=== PATIENT | male | born 1950 ===

== ENCOUNTER 2018-02-18 16:46 | Inpatient (IN) | payer MEDICAID ==
[2018-02-18 17:53] LABS: BASO # 0.1 K/uL (0.0-0.2); BASO % 1.1 % (0.0-2.0); EOS # 0.2 K/uL (0.0-0.7); EOS % 3.4 % (0.0-4.0); LYMPH # 2.5 K/uL (1.0-4.3); LYMPH % 47.7 % (20.0-40.0); MEAN CELL VOLUME 90.4 fl (80.0-94.0); MEAN CORPUSCULAR HGB CONC 33.2 g/dL (33.0-37.0); MEAN PLATELET VOLUME 7.4 fl (7.2-11.7); MONO # 0.4 K/uL (0.0-0.8); MONO % 7.2 % (0.0-10.0); NEUT # 2.1 K/uL (1.8-7.0); NEUT % 40.6 % (50.0-75.0); NRBC % 0.2 % (0.0-0.0); RBC 4.34 Mil/uL (4.40-5.90); RED CELL DISTRIBUTION WIDTH 14.3 % (11.5-14.5); WHITE BLOOD COUNT 5.2 K/uL (4.8-10.8)
--- NOTE | 2018-02-18 17:54 | ED PDOC ---
HPI: Psych/Substance Abuse Time Seen by Provider: 02/18/18 16:57 Chief Complaint (Nursing): Psychiatric Evaluation Chief Complaint (Provider): Psychiatric Evaluation History Per: Patient, EMS, Other (Triage) History/Exam Limitations: no limitations Onset/Duration Of Symptoms: Hrs Current Symptoms Are (Timing): Gone Now Suicide/Self Injury Attempted (Context): None Modifying Factor(s): None Additional Complaint(s): 68 y/o male with a PMHx of HTN brought to the ED via EMS for evaluation of agitation. According to triage and EMS, patient was agitated at the alf and had an argument with the staff. No alf notes are available for viewing. Patient reports he does not like his alf. Denies suicidal ideation, homicidal ideation and hallucinations. Patient currently offers no complaints at this time. PMD: Unknown Past Medical History Reviewed: Historical Data, Nursing Documentation, Vital Signs Vital Signs: Last Vital Signs Temp 98 F 02/18/18 16:48 Pulse 98 H 02/18/18 16:48 Resp 18 02/18/18 16:48 BP 142/88 02/18/18 16:48 Pulse Ox 99 02/18/18 16:48 - Medical History PMH: Bipolar Disorder, Depression, Diabetes, HTN, Schizophrenia - Family History Family History: States: Unknown Family Hx - Living Arrangements Living Arrangements: [facility] - Social History Current smoker - smoking cessation education provided: No Alcohol: None - Immunization History Hx Tetanus Toxoid Vaccination: No Hx Influenza Vaccination: Yes Hx Pneumococcal Vaccination: Yes - Home Medications Home Medications: Ambulatory Orders Medication Instructions Recorded Olanzapine 5 mg PO DAILY 10/26/16 Acetaminophen [Tylenol 325mg tab] 650 mg PO Q4 PRN tab 11/08/16 Benztropine [Cogentin] 2 mg PO DAILY tab 11/08/16 Dexamethasone [Decadron] 4 mg PO Q6 tab 11/08/16 Ergocalciferol [Drisdol 50,000 1 cap PO QWK cap 11/08/16 Intl Units Cap] FLUoxetine [Prozac] 20 mg PO DAILY cap 11/08/16 Famotidine [Pepcid] 20 mg PO BID tab 11/08/16 Insulin Aspart, Recombinant 0 unit SC ACHS unit 11/08/16 [Novolog] Lactulose [Enulose] 20 gm PO HS 11/08/16 Magnesium Hydroxide [Milk Of 30 ml PO DAILY 11/08/16 Magnesia] Multivitamins [Hexavitamin] 1 tab PO DAILY tab 11/08/16 Pantoprazole [Protonix EC Tab] 40 mg PO DAILY ect 11/08/16 Polyethylene Glycol 3350 [Miralax] 17 gm PO DAILY packet 11/08/16 Thiamine [Vitamin B1 Tab] 100 mg PO DAILY tab 11/08/16 Tolterodine [Detrol LA] 2 mg PO DAILY cer 11/08/16 amLODIPine [Norvasc] 10 mg PO DAILY tab 11/08/16 metFORMIN [glucOPHAGE] 500 mg PO BIDCC tab 11/08/16 - Allergies Allergies/Adverse Reactions: Allergies Allergy/AdvReac Type Severity Reaction Status Date / Time olive oil Allergy Mild Verified 10/26/16 21:22 Review of Systems ROS Statement: Except As Marked, All Systems Reviewed And Found Negative Psych: Positive for: Other (Psychiatric evaluation ). Negative for: Suicidal ideation (homicidal ideation or hallucinations) Physical Exam - Reviewed Nursing Documentation Reviewed: Yes Vital Signs Reviewed: Yes - Physical Exam Appears: Positive for: No Acute Distress Head Exam: Positive for: ATRAUMATIC, NORMOCEPHALIC Eye Exam: Positive for: EOMI (right eye), PERRL (right eye), Other (left eye with milton haze consistent with terminal eye.) ENT: Negative for: Pharyngeal Erythema, Tonsillar Exudate Neck: Positive for: Painless ROM, Supple Cardiovascular/Chest: Positive for: Regular Rate, Rhythm. Negative for: Murmur Respiratory: Positive for: Normal Breath Sounds. Negative for: Wheezing Gastrointestinal/Abdominal: Positive for: Normal Exam, Soft, Distended (Large distention with possible ascitis and fluid wave). Negative for: Tenderness, Mass, Guarding, Rebound Back: Positive for: Normal Inspection. Negative for: Decreased ROM Extremity: Positive for: Pedal Edema, Swelling (Bilateral lower leg pitting edema 1+) Lymphatic: Negative for: Adenopathy Neurologic/Psych: Positive for: Alert, Oriented (x2), Other (Normal Speech). Negative for: Motor/Sensory Deficits, Facial Droop - Laboratory Results Result Diagrams: 02/18/18 17:40 02/18/18 17:40 - ECG O2 Sat by Pulse Oximetry: 99 (RA) Pulse Ox Interpretation: Normal Medical Decision Making Medical Decision Making: Time: 1745 Impression: Acute Agitation Differentials include but not limited to Dementia, Electrolyte Abnormality, Hepatic Encephalopathy and Adjustment Disorder Plan: -- CT Head w/o Contrast -- EKG -- Ammonia -- B-Type Natriuretic -- CMP -- Urine Drug Screen -- Lipase -- Magnesium -- Phosphorus -- Thyroid Stimulating Hormone -- Troponin I -- ED Urine Dipstick -- CBC with differentials -- PTT -- Prothrombin Time -- CXR Portable -- IV Insertion Time: [address] RESULTS FINDINGS: HEMORRHAGE: No intracranial hemorrhage. BRAIN: No mass effect or edema. No atrophy or chronic microvascular ischemic changes. VENTRICLES: Unremarkable. No hydrocephalus. CALVARIUM: Unremarkable. PARANASAL SINUSES: Unremarkable as visualized. No significant inflammatory changes. MASTOID AIR CELLS: Unremarkable as visualized. No inflammatory changes. OTHER FINDINGS: Unilateral, left phthisis bulbi. IMPRESSION: No acute intracranial abnormalities. No significant findings to account for the clinical presentation. Time: 1836 CXR RESULTS FINDINGS: LUNGS: No active pulmonary disease. PLEURA: No significant pleural effusion identified, no pneumothorax apparent. CARDIOVASCULAR: No radiographic findings to suggest acute or significant cardiovascular disease. OSSEOUS STRUCTURES: No significant abnormalities. VISUALIZED UPPER ABDOMEN: Normal. OTHER FINDINGS: None. IMPRESSION: No active disease. Accession No. : [id number] Patient Name / ID : JULIANN LANDIN / [id number] Exam Date : 02/18/2018 17:57:41 ( Approved ) Study Comment : Sex / Age : M / 68Y Creator : Alan Osei MD Dictator : Alan Osei MD Berry Picker Machine Operator : Fishing Tool Technician Oil Well : Alan Osei MD Approver2 : Report Date : 02/18/2018 18:16:33 My Comment : Date of service: 02/18/2018 PROCEDURE: CT HEAD WITHOUT CONTRAST. HISTORY: agitated behavior COMPARISON: None available. TECHNIQUE: Axial computed tomography images were obtained through the head/brain without intravenous contrast. Coronal and sagittal reconstructed images. Radiation dose: Total exam DLP = 1152.38 mGy-cm. This CT exam was performed using one or more of the following dose reduction techniques: Automated exposure control, adjustment of the mA and/or kV according to patient size, and/or use of iterative reconstruction technique. FINDINGS: HEMORRHAGE: No intracranial hemorrhage. BRAIN: No mass effect or edema. No atrophy or chronic microvascular ischemic changes. VENTRICLES: Unremarkable. No hydrocephalus. CALVARIUM: Unremarkable. PARANASAL SINUSES: Unremarkable as visualized. No significant inflammatory changes. MASTOID AIR CELLS: Unremarkable as visualized. No inflammatory changes. OTHER FINDINGS: Unilateral, left phthisis bulbi. IMPRESSION: No acute intracranial abnormalities. No significant findings to account for the clinical presentation. 720p Labs unremarkable. Pt stable for psychiatric evaluation and admission if necessary 920p Evaluated by Caryl MANNING. Pt to be hospitalized for psychiatric stabilization. Scribe Attestation: Documented by Mignon Ty acting as a scribe for Yael Ortiz MD. Provider Scribe Attestation: All medical record entries made by the Scribe were at my direction and personally dictated by me. I have reviewed the chart and agree that the record accurately reflects my personal performance of the history, physical exam, medical decision making, and the department course for this patient. I have also personally directed, reviewed, and agree with the discharge instructions and disposition. Disposition - Clinical Impression Clinical Impression: Schizophrenia Counseled Patient/Family Regarding: Studies Performed - Disposition Disposition Time: 21:20 Condition: STABLE - Pt Status Changed To: Hospital Disposition Of: Inpatient - Admit Certification Admit to Inpatient:: After my assessment, the patient will require hospitalization for at least two midnights. This is because of the severity of symptoms shown, intensity of services needed, and/or the medical risk in this patient being treated as an outpatient. - POA Present On Arrival: None
[2018-02-18 18:05] LABS: ALB/GLOB RATIO 1.1 (1.0-2.1); ALT/SGPT 25 U/L (21-72); AST/SGOT 18 U/L (17-59); BLOOD UREA NITROGEN 11 mg/dl (9-20); CALCIUM 9.4 mg/dL (8.4-10.2); GFR NON-AFRICAN AMERICAN > 60; LIPASE 175 U/L (23-300)
[2018-02-18 18:07] LABS: PARTIAL THROMBOPLASTIN TIME 34.8 Seconds (25.6-37.1)
[2018-02-18 18:16] LABS: BARBITURATES, UR NEGATIVE (NEGATIVE); BENZODIAZEPINES, UR NEGATIVE (NEGATIVE); OPIATES, UR NEGATIVE (NEGATIVE); PHENCYCLIDINE, UR NEGATIVE (NEGATIVE)
--- NOTE | 2018-02-18 18:18 | CT ---
Date of service: 02/18/2018 PROCEDURE: CT HEAD WITHOUT CONTRAST. HISTORY: agitated behavior COMPARISON: None available. TECHNIQUE: Axial computed tomography images were obtained through the head/brain without intravenous contrast. Coronal and sagittal reconstructed images. Radiation dose: Total exam DLP = 1152.38 mGy-cm. This CT exam was performed using one or more of the following dose reduction techniques: Automated exposure control, adjustment of the mA and/or kV according to patient size, and/or use of iterative reconstruction technique. FINDINGS: HEMORRHAGE: No intracranial hemorrhage. BRAIN: No mass effect or edema. No atrophy or chronic microvascular ischemic changes. VENTRICLES: Unremarkable. No hydrocephalus. CALVARIUM: Unremarkable. PARANASAL SINUSES: Unremarkable as visualized. No significant inflammatory changes. MASTOID AIR CELLS: Unremarkable as visualized. No inflammatory changes. OTHER FINDINGS: Unilateral, left phthisis bulbi. IMPRESSION: No acute intracranial abnormalities. No significant findings to account for the clinical presentation.
--- NOTE | 2018-02-18 18:39 | RAD ---
Date of service: 02/18/2018 HISTORY: agitations COMPARISON: No prior. FINDINGS: LUNGS: No active pulmonary disease. PLEURA: No significant pleural effusion identified, no pneumothorax apparent. CARDIOVASCULAR: No radiographic findings to suggest acute or significant cardiovascular disease. OSSEOUS STRUCTURES: No significant abnormalities. VISUALIZED UPPER ABDOMEN: Normal. OTHER FINDINGS: None. IMPRESSION: No active disease.
[2018-02-18 23:10] LABS: B-TYPE NATRIURETIC PEPTIDE 32.1 pg/ml (0-900)
[2018-02-19] MEDS ORDERED: Bismuth Subsalicylate 262 mg/15 ml Sus (240 ml) PO PRN (00:22)
--- NOTE | 2018-02-19 00:38 | PCM.BM ---
<LillianJesseYehudaalfred Arabella - Last Filed: 02/19/18 00:36> Treatment Plan Problems - Problems identified on initial assessmt Delusions Date Initiated: 02/19/18 Time Initiated: 00:36 Assessment reference: NA Status: Active Medication nonadherence Date Initiated: 02/19/18 Time Initiated: 00:37 Assessment reference: NA Status: Active Treatment assets and liabiliti Patient Assests: cooperative, negotiates basic needs Patient Liabilities: poor support system, medical problems - Milieu Protocol Maintain good personal hygiene: daily Encourage regular showers, daily Remind patient to perform daily oral care, daily Assist patient to perform ADL's Conduct patient checks and document Observation sheet: Q15 minutes Maintain personal safety: every shift Educate patient to report safety concerns to staff, every shift Monitor environment for contraband/sharps Medication safety: Monitor for expected outcome, potential side effects: every shift, Assess barriers to learning: every shift, Assess readiness for medication education: every shift <Kaye Tony - Last Filed: 02/19/18 09:15> - Diagnosis (1) Schizoaffective disorder Status: Acute Interventions: Medication management, Individual and group therapy, Psychoeducation 02/19/18 09:15 <Roque Shoemaker - Last Filed: 02/20/18 15:29> Family Contact Family involvement: Famliy/SO not involved Family contact: Telephone contact initiated by staff Family contact name: Zhane - Friend Family contacted how many times per week?: 2 Family contact comment: Insurance Sales Producer spoke with pt's support and former homemaker, Zhane [phone], for collateral and provide Zhane with visiting hours. Zhane reported that she is pt's only support and he does not have friends or family. She has known pt for four years and was his homemaker for 2 of them. Zhane reported that last time she visited pt at [place] pt had packed all his belongings and wanted to leave the facility. - Goals for Treatment Patient goals for treatment: Pt reported he wants to be referred to a nursing home and not return to Care Home. Discharge/Continuing Care - Education Needs Education Needs: Patient Medication, Patient Diagnosis/Disease Process, Patient Coping Skills, Patient Placement options, Patient Community resources, Patient Aftercare Safety Plan - Discharge Discharge Criteria: Tolerates medication w/o severe side effects, Free of paranoid thoughts, Free of agitation, Normal sleep pattern, Ability to care for self, Reduction of target symptoms Discharge to:: [facility] - Treatment Team Participation Patient/Family/SO Statement: 02/20/18 15:29 Pt refused to attend treatment team on 02/20/18. Pt did not provide a reason. Discussed with Family/SO: Yes Was Patient/Family/SO present at Treatment Team Meeting: Yes
[2018-02-19 08:12] LABS: IRON 84 ug/dL (49-181)
[2018-02-19 08:26] LABS: % IRON SATURATION 30 % (20-55); TOTAL IRON BINDING CAPACITY 278 ug/dL (250-450)
[2018-02-19 08:42] LABS: FERRITIN 31.5 ng/Ml (17.9-464)
[2018-02-19] MEDS ORDERED: Patient's Own Med (Multivitamins [Hexavitamin] 1 TAB) PO SCH (09:00)
--- NOTE | 2018-02-19 09:11 | CARD ---
APPROVED REPORT Date of service: 02/18/2018 <Conclusion> Sinus rhythm Minimal voltage criteria for LVH, may be normal variant Abnormal ECG
--- NOTE | 2018-02-19 09:18 | PCM.PSYCH ---
Initial Psychiatric Evaluation - Initial Psychiatric Evaluation Type of Admission: Voluntary Legal Status: Capacity Chief Complaint (in patient's own words): Paranoia/Agitation Patient's Reaction to Hospitalization: HPI: 68 yo Sherwin male, resident at [facility], sent from assisted for worsening agitation, yelling, threatening to kill someone, acute paranoia and aggression. While at the assisted, patient reported beliefs that the doctor was trying to poison him and would only take medications when dispensed by certain individuals. He currently states that he does not feel safe returning to the assisted. He reports feeling depressed and anxious. He denies AH/VH/SI/HI to physician underwriter, but reported AH in the ER. He has poor insight into his aggressive behaviors and denies making any verbal threats to others. PPHx: H/o schizoaffective disorder; h/o multiple psychiatric admissions, including admission to [facility] from [id number]. Current medications: Zyprexa and Prozac PMHx: DM, HTN, HLD, GERD, Urgency of Urination, Left Eye Blindness, Gait Abnormality ALL: [place] [employer]; NKDA SHx: Resident @ [facility]; denies drugs/etoh/cig use; From [place] Current Medications: Active Medications Generic Name Dose Route Start Last Admin Trade Name Freq PRN Reason Stop Dose Admin Acetaminophen 650 mg 02/19/18 00:22 Tylenol 325mg Tab PO Q4 PRN Pain, moderate (4-7) Al Hydrox/Mg Hydrox/Simethicone 30 ml 02/19/18 00:22 Maalox Plus 30 Ml PO Q4 PRN Dyspepsia Amlodipine Besylate 10 mg 02/19/18 09:00 Norvasc PO DAILY SHANDRA Bismuth Subsalicylate 524 mg 02/19/18 00:22 Pepto-Bismol PO Q4 PRN Diarrhea Docusate Sodium 100 mg 02/19/18 09:00 Colace PO BID SHANDRA Ergocalciferol 1 cap 02/23/18 08:45 Drisdol 50,000 Intl Units Cap PO Q7D SHANDRA Famotidine 20 mg 02/19/18 22:00 Pepcid PO HS SHANDRA Fluoxetine HCl 20 mg 02/19/18 09:00 Prozac PO DAILY SHANDRA Furosemide 40 mg 02/19/18 09:00 Lasix PO BID SHANDRA Gabapentin 100 mg 02/19/18 09:00 Neurontin PO DAILY SHANDRA Lorazepam 0.5 mg 02/19/18 00:22 Ativan PO 03/05/18 00:23 HS PRN Insomnia Lorazepam 0.5 mg 02/19/18 00:22 Ativan PO 03/05/18 00:23 Q6 PRN Anixety/Agitation Magnesium Hydroxide 30 ml 02/19/18 00:22 Milk Of Magnesia PO HS PRN Constipation Metformin HCl 500 mg 02/19/18 08:45 Glucophage PO BIDWM [facility] Multivitamins/Minerals 1 tab 02/19/18 09:15 Therapeutic-M Tab PO DAILY [facility] Olanzapine 10 mg 02/19/18 22:00 Zyprexa PO HS [facility] Olanzapine 2.5 mg 02/19/18 22:00 Zyprexa PO HS [facility] Pneumococcal Polyvalent Vaccine 0.5 ml 02/19/18 10:00 Pneumovax 23 Vaccine IM 02/19/18 10:01 .ONCE ONE Sennosides 2 mg 02/19/18 09:00 Senokot Tab PO BID [facility] Thiamine HCl 100 mg 02/19/18 09:00 Vitamin B1 Tab PO DAILY [facility] Tolterodine Tartrate 1 mg 02/19/18 09:00 Detrol PO BID [facility] Past Psychiatric History - Past Psychiatric History Previous Treatment History: Inpatient Pertinent Medical Hx (Current Medical&Sleep Prob, Allergies): Allergies Allergy/AdvReac Type Severity Reaction Status Date / Time olive oil Allergy Mild Verified 10/26/16 21:22 Olanzapine 5 mg PO DAILY 10/26/16 Benztropine [Cogentin] 2 mg PO DAILY tab 11/08/16 Ergocalciferol [Drisdol 50,000 Intl Units Cap] 1 cap PO QWK cap 11/08/16 FLUoxetine [Prozac] 20 mg PO DAILY cap 11/08/16 Lactulose [Enulose] 20 gm PO HS 11/08/16 Multivitamins [Hexavitamin] 1 tab PO DAILY tab 11/08/16 Polyethylene Glycol 3350 [Miralax] 17 gm PO DAILY packet 11/08/16 Thiamine [Vitamin B1 Tab] 100 mg PO DAILY tab 11/08/16 Tolterodine [Detrol LA] 2 mg PO DAILY cer 11/08/16 amLODIPine [Norvasc] 10 mg PO DAILY tab 06/07/17 metFORMIN [glucOPHAGE] 500 mg PO BIDCC tab 11/08/16 Acetaminophen [Tylenol 325mg tab] 650 mg PO Q4H PRN 02/19/18 Docusate Sodium [Collins' Stool Softener Laxative] 100 mg PO BID PRN 02/19/18 Famotidine [Pepcid] 20 mg PO HS 02/19/18 Furosemide [Lasix] 40 mg PO BID 02/19/18 Gabapentin [Neurontin] 100 mg PO DAILY 02/19/18 Insulin Lispro [Humalog (Insulin Lispro)] See Protocol SC ACHS 02/19/18 Sennosides [Senna Concentrate] 2 tab PO BID PRN 02/19/18 Review of Systems - Psychiatric Psychiatric: As Per HPI, Anxiety, Behavioral Changes, Depression, Difficulty Concentrating, Irritability, Memory Loss, Mood Swings Mental Status Examination - Personal Presentation Personal Presentation: Looks older than stated age - Affect Affect: Constricted - Motor Activity Motor Activity: Calm - Reliability in Providing Information Reliability in Providing Information: Poor, due to alteration in thoughts - Speech Speech: Coherent - Mood Mood: Depressed, Anxious - Formal Thought Process Formal Thought Process: Delusions, Paranoia - Hallucinations/Delusions Additional comments: Denies acute AH/VH; but endorsed recent AH - Obsessions/Compulsions Obsessions: No Compulsions: No - Cognitive Functions Orientation: Person, Place, Situation, Time Sensorium: Alert Estimate of Intelligence: Average Judgement: Imparied, as evidence by: Poor judgement, Imparied, as evidence by: Lack of insight into illness Memory: Recent intact, as evidence by: Ability to recall events of the day - Risk Risk: Homicidal, Diminished functioning - Strength & Assets Inventory Strength & Assets Inventory: Cooperative - Limitations Limitations: Decreased memory, recent DSM 5 DX - DSM 5 DSM 5 Diagnosis: Schizoaffective Disorder - Recommended/Plan of Treatment Treatment Recommendations and Plan of Treatment: Schizoaffective Disorder -Admit to psychiatry unit -Individual and group therapy -Medicine consult -Increase Zyprexa to 12.5 mg PO HS -Increase Prozac to 20 mg PO Daily -PT screening -Disposition planning Projected ELOS: 5-10 days Discharge Plan and Discharge Criteria: Discharge when patient is psychiatrically stable - Smoking Cessation Smoking Cessation Initiated: No Reason for not providing: Not indicated
[2018-02-19] MEDS ORDERED: Pneumococcal 23-Valent Vaccine IM ONE (10:00)
[2018-02-19] MEDS ORDERED: Influenza Vaccine (5 YR UP)/PF 60 MCG/0.5 ML SYR IM ONE (10:00)
[2018-02-19] MEDS: Multivitamin With Minerals Tab PO SCH (11:13)
[2018-02-19] MEDS ORDERED: Dextrose 50% SYRINGE Inj (50 ml) IV PRN (13:32)
[2018-02-19] MEDS ORDERED: Glucagon Recombinant 1 mg Inj IM PRN (13:32)
[2018-02-19] MEDS: Insulin Lispro (humaLOG) 100 Units/ml Inj SC SCH ×2 (16:52→21:15)
--- NOTE | 2018-02-19 17:41 | CP.PCM.CON ---
History of Present Illness - History of Present Illness History of Present Illness: cc: medical consult for clearance of psychiatric patient HPI: 68 yo male pmh of dm-2 niddm, and hypertension, here with aggression and schizoaffective disorder. He offers no physical complaints. no cp, no sob, no fevers, no chills, no abd pain, no n/v/d. PMH: DM-2 Hypertension Meds: reviewed Past surgical history: cervical herniated disc surgery - anterior approach in 2017 FH: none for inherited diseases Soc history: used to smoke 1/2ppd x 6 yrs quit in 1991 no drugs no etoh [facility] Review of Systems - Review of Systems All systems: reviewed and no additional remarkable complaints except Review of Systems: in hpi Past Patient History - Infectious Disease Hx of Infectious Diseases: None - Past Medical History & Family History Past Medical History?: Yes - Past Social History Smoking Status: Former Smoker Alcohol: None - CARDIAC Hx Hypertension: Yes - NEUROLOGICAL Other/Comment: tremors - ENDOCRINE/METABOLIC Hx Diabetes Mellitus Type 1: Yes - MUSCULOSKELETAL/RHEUMATOLOGICAL Hx Falls: Yes Hx Unsteady Gait: Yes - GASTROINTESTINAL Hx Gastroesophageal Reflux: Yes - PSYCHIATRIC Hx Bipolar Disorder: Yes Hx Depression: Yes Hx Schizophrenia: Yes Hx Substance Use: No - SURGICAL HISTORY Hx Surgeries: Yes Other/Comment: retinal detachment in 1981 - ANESTHESIA Hx Anesthesia: No Meds Allergies/Adverse Reactions: Allergies Allergy/AdvReac Type Severity Reaction Status Date / Time olive oil Allergy Mild Verified 10/26/16 21:22 - Medications Medications: Current Medications Acetaminophen (Tylenol 325mg Tab) 650 mg PO Q4 PRN PRN Reason: Pain, moderate (4-7) Al Hydrox/Mg Hydrox/Simethicone (Maalox Plus 30 Ml) 30 ml PO Q4 PRN PRN Reason: Dyspepsia Amlodipine Besylate (Norvasc) 10 mg PO DAILY [facility] Last Admin: 02/19/18 11:14 Dose: 10 mg Bismuth Subsalicylate (Pepto-Bismol) 524 mg PO Q4 PRN PRN Reason: Diarrhea Dextrose (Dextrose 50% Inj) 0 ml IV STAT PRN; Protocol PRN Reason: Hypoglycemia Protocol Dextrose (Glutose 15) 0 gm PO ONCE PRN; Protocol PRN Reason: Hypoglycemia Protocol Docusate Sodium (Colace) 100 mg PO BID [facility] Last Admin: 02/19/18 16:51 Dose: 100 mg Ergocalciferol (Drisdol 50,000 Intl Units Cap) 1 cap PO Q7D [facility] Famotidine (Pepcid) 20 mg PO HS [facility] Fluoxetine HCl (Prozac) 20 mg PO DAILY [facility] Last Admin: 02/19/18 11:11 Dose: 20 mg Furosemide (Lasix) 40 mg PO BID [facility] Last Admin: 02/19/18 16:51 Dose: 40 mg Gabapentin (Neurontin) 100 mg PO DAILY [facility] Last Admin: 02/19/18 11:12 Dose: 100 mg Glucagon (Glucagen Diagnostic Kit) 0 mg IM STAT PRN; Protocol PRN Reason: Hypoglycemia Protocol Insulin Human Lispro (Humalog) 0 units SC ACHS SHANDRA PRN Reason: Protocol Last Admin: 02/19/18 16:52 Dose: Not Given Lorazepam (Ativan) 0.5 mg PO HS PRN PRN Reason: Insomnia Stop: 03/05/18 00:23 Lorazepam (Ativan) 0.5 mg PO Q6 PRN PRN Reason: Anixety/Agitation Stop: 03/05/18 00:23 Magnesium Hydroxide (Milk Of Magnesia) 30 ml PO HS PRN PRN Reason: Constipation Metformin HCl (Glucophage) 500 mg PO BIDWM [facility] Last Admin: 02/19/18 16:52 Dose: 500 mg Multivitamins/Minerals (Therapeutic-M Tab) 1 tab PO DAILY [facility] Last Admin: 02/19/18 11:13 Dose: 1 tab Olanzapine (Zyprexa) 10 mg PO HS [facility] Olanzapine (Zyprexa) 2.5 mg PO HS [facility] Sennosides (Senokot Tab) 17.2 mg PO BID [facility] Thiamine HCl (Vitamin B1 Tab) 100 mg PO DAILY [facility] Last Admin: 02/19/18 11:10 Dose: 100 mg Tolterodine Tartrate (Detrol) 1 mg PO BID [facility] Last Admin: 02/19/18 16:52 Dose: 1 mg Physical Exam - Constitutional Appears: Non-toxic, No Acute Distress, Confused - Head Exam Head Exam: ATRAUMATIC, NORMAL INSPECTION, NORMOCEPHALIC - Eye Exam Eye Exam: Normal appearance - ENT Exam ENT Exam: Mucous Membranes Moist - Respiratory Exam Respiratory Exam: Clear to Auscultation Bilateral, NORMAL BREATHING PATTERN. absent: Rales, Rhonchi, Wheezes - Cardiovascular Exam Cardiovascular Exam: REGULAR RHYTHM, +S1, +S2 - GI/Abdominal Exam GI & Abdominal Exam: Normal Bowel Sounds, Soft. absent: Tenderness - Neurological Exam Neurological exam: Abnormal Gait, Alert, CN II-XII Intact, Oriented x3 Additional comments: walks with walker - Psychiatric Exam Psychiatric exam: Depressed - Skin Skin Exam: Intact Results - Vital Signs Recent Vital Signs: Last Vital Signs Temp 97.6 F 02/19/18 16:19 Pulse 78 02/19/18 16:19 Resp 20 02/19/18 16:19 BP 146/91 H 02/19/18 16:51 Pulse Ox 99 02/18/18 21:22 - Labs Result Diagrams: 02/18/18 17:40 02/18/18 17:40 Labs: Laboratory Results - last 24 hr 02/18/18 02/18/18 02/18/18 17:40 17:40 17:40 WBC 5.2 RBC 4.34 L Hgb 13.0 Hct 39.2 MCV 90.4 MCH 30.0 MCHC 33.2 RDW 14.3 Plt Count 286 MPV 7.4 Neut % (Auto) 40.6 L Lymph % (Auto) 47.7 H [place] % (Auto) 7.2 Eos % (Auto) 3.4 Baso % (Auto) 1.1 Neut # (Auto) 2.1 Lymph # (Auto) 2.5 [place] # (Auto) 0.4 Eos # (Auto) 0.2 Baso # (Auto) 0.1 PT 11.0 INR 1.0 APTT 34.8 Sodium 142 Potassium 3.6 Chloride 104 Carbon Dioxide 29 Anion Gap 13 BUN 11 Creatinine 0.7 L Est GFR ( Amer) > 60 Est GFR (Non-Af Amer) > 60 POC Glucose (mg/dL) Random Glucose 94 Hemoglobin A1c Calcium 9.4 Phosphorus 3.7 Magnesium 2.1 Iron TIBC % Saturation Ferritin Total Bilirubin 0.2 AST 18 ALT 25 Alkaline Phosphatase 63 Ammonia Troponin I < 0.0120 NT-Pro-B Natriuret Pep 32.1 Total Protein 7.6 Albumin 4.0 Globulin 3.5 Albumin/Globulin Ratio 1.1 Triglycerides Cholesterol LDL Cholesterol Direct HDL Cholesterol Lipase 175 Vitamin B12 Free T4 Thyroxine (T4) TSH 3rd Generation 1.16 Urine Opiates Screen Urine Methadone Screen Ur Barbiturates Screen Ur Phencyclidine Scrn Ur Amphetamines Screen U Benzodiazepines Scrn U Oth Cocaine Metabols U Cannabinoids Screen RPR 02/18/18 02/18/18 02/19/18 17:46 18:17 05:48 WBC RBC Hgb Hct MCV MCH MCHC RDW Plt Count MPV Neut % (Auto) Lymph % (Auto) [place] % (Auto) Eos % (Auto) Baso % (Auto) Neut # (Auto) Lymph # (Auto) [place] # (Auto) Eos # (Auto) Baso # (Auto) PT INR APTT Sodium Potassium Chloride Carbon Dioxide Anion Gap BUN Creatinine Est GFR ( Amer) Est GFR (Non-Af Amer) POC Glucose (mg/dL) 72 Random Glucose Hemoglobin A1c Calcium Phosphorus Magnesium Iron TIBC % Saturation Ferritin Total Bilirubin AST ALT Alkaline Phosphatase Ammonia 9 L Troponin I NT-Pro-B Natriuret Pep Total Protein Albumin Globulin Albumin/Globulin Ratio Triglycerides Cholesterol LDL Cholesterol Direct HDL Cholesterol Lipase Vitamin B12 Free T4 Thyroxine (T4) TSH 3rd Generation Urine Opiates Screen Negative Urine Methadone Screen Negative Ur Barbiturates Screen Negative Ur Phencyclidine Scrn Negative Ur Amphetamines Screen Negative U Benzodiazepines Scrn Negative U Oth Cocaine Metabols Negative U Cannabinoids Screen Negative RPR 02/19/18 02/19/18 02/19/18 07:42 07:42 07:42 WBC RBC Hgb Hct MCV MCH MCHC RDW Plt Count MPV Neut % (Auto) Lymph % (Auto) [place] % (Auto) Eos % (Auto) Baso % (Auto) Neut # (Auto) Lymph # (Auto) [place] # (Auto) Eos # (Auto) Baso # (Auto) PT INR APTT Sodium Potassium Chloride Carbon Dioxide Anion Gap BUN Creatinine Est GFR ( Amer) Est GFR (Non-Af Amer) POC Glucose (mg/dL) Random Glucose Hemoglobin A1c 5.7 Calcium Phosphorus Magnesium Iron 84 TIBC 278 % Saturation 30 Ferritin 31.5 Total Bilirubin AST ALT Alkaline Phosphatase Ammonia Troponin I NT-Pro-B Natriuret Pep Total Protein Albumin Globulin Albumin/Globulin Ratio Triglycerides 69 Cholesterol 129 LDL Cholesterol Direct 63 HDL Cholesterol 38 Lipase Vitamin B12 440 Free T4 Thyroxine (T4) 9.52 TSH 3rd Generation 1.08 Urine Opiates Screen Urine Methadone Screen Ur Barbiturates Screen Ur Phencyclidine Scrn Ur Amphetamines Screen U Benzodiazepines Scrn U Oth Cocaine Metabols U Cannabinoids Screen RPR 02/19/18 02/19/18 02/19/18 07:42 07:42 15:29 WBC RBC Hgb Hct MCV MCH MCHC RDW Plt Count MPV Neut % (Auto) Lymph % (Auto) [place] % (Auto) Eos % (Auto) Baso % (Auto) Neut # (Auto) Lymph # (Auto) [place] # (Auto) Eos # (Auto) Baso # (Auto) PT INR APTT Sodium Potassium Chloride Carbon Dioxide Anion Gap BUN Creatinine Est GFR ( Amer) Est GFR (Non-Af Amer) POC Glucose (mg/dL) 184 H Random Glucose Hemoglobin A1c Calcium Phosphorus Magnesium Iron TIBC % Saturation Ferritin Total Bilirubin AST ALT Alkaline Phosphatase Ammonia Troponin I NT-Pro-B Natriuret Pep Total Protein Albumin Globulin Albumin/Globulin Ratio Triglycerides Cholesterol LDL Cholesterol Direct HDL Cholesterol Lipase Vitamin B12 Free T4 1.07 Thyroxine (T4) TSH 3rd Generation Urine Opiates Screen Urine Methadone Screen Ur Barbiturates Screen Ur Phencyclidine Scrn Ur Amphetamines Screen U Benzodiazepines Scrn U Oth Cocaine Metabols U Cannabinoids Screen RPR Nonreactive Assessment & Plan - Assessment and Plan (Free Text) Assessment: 68 yo pmh of htn, dm-2 cervical surgery here with agitation and schizoaffective disorder with aggression 1. dm -2 accuchecks and iss cont home meds 2. hypertension cont home meds 3. difficulty ambulating walks with walker 4. ? overactive bladder on detrol
[2018-02-19 22:17] LABS: FOLATE 14.9 ng/mL
[2018-02-20] MEDS: Multivitamin With Minerals Tab PO SCH (09:11)
[2018-02-20] MEDS: Insulin Lispro (humaLOG) 100 Units/ml Inj SC SCH ×4 (09:16→21:11)
--- NOTE | 2018-02-20 10:47 | PCM.PYCHPN ---
Psychiatric Progress Note - Psychiatric Progress Note Patient seen today, length of contact: Pt evaluated, case discussed w/ team, chart reviewed Patient Chief Complaint: Paranoia/Agitation Problems Identified/Issues Discussed: Patient continues to be labile, irritable and paranoid. He was not agreeable to attending treatment team. He has been compliant w/ medications but shows poor insight/judgment into his psychiatric symptoms. Medication Change: No Medical Record Reviewed: Yes Consults ordered or reviewed: Medicine consult Mental Status Examination - Cognitive Function Orientation: Person, Place, Situation, Time Association: Loose Fund of Knowledge: Poor Decription of patient's judgement and insights: Poor I/J - Mood Mood: Anxious - Affect Affect: Other (Irritable) - Speech Speech: Soft - Formal Thought Process Formal Thought Process: Delusions, Paranoia Psychotic Thoughts and Behaviors: +Paranoia - Suicidal Ideation Suicidal Ideation: No - Homicidal Ideation Homicidal Ideation: No Goal/Treatment Plan - Goal/Treatment Plan Need for Continued Stay: Remain at risks for inpatient hospitalization, Discharge may exacerbated symptoms Progress Toward Problem(s) and Goals/Treatment Plan: Schizoaffective Disorder -Individual and group therapy -Medicine consult -Continue Zyprexa 12.5 mg PO HS -Continue Prozac 20 mg PO Daily -PT screening -Disposition planning
[2018-02-21] MEDS: Multivitamin With Minerals Tab PO SCH (08:43)
[2018-02-21] MEDS: Insulin Lispro (humaLOG) 100 Units/ml Inj SC SCH ×4 (08:45→21:29)
--- NOTE | 2018-02-21 10:19 | PCM.PYCHPN ---
Psychiatric Progress Note - Psychiatric Progress Note Patient seen today, length of contact: Pt evaluated, case discussed w/ team, chart reviewed Patient Chief Complaint: Paranoia Problems Identified/Issues Discussed: Patient is calmer and less irritable today. He continues to state that it is not safe for him to return to the detention. He denies current paranoia towards staff in the hospital and has been taking his medications. No adverse effects to medications reported. Medication Change: No Medical Record Reviewed: Yes Consults ordered or reviewed: Medicine consult Mental Status Examination - Cognitive Function Orientation: Person, Place, Situation, Time Association: WNL Fund of Knowledge: [facility] Decription of patient's judgement and insights: Poor I/J - Mood Mood: Anxious - Affect Affect: Other (Irritable) - Speech Speech: Soft - Formal Thought Process Formal Thought Process: Delusions, Paranoia Psychotic Thoughts and Behaviors: +Paranoia - Suicidal Ideation Suicidal Ideation: No - Homicidal Ideation Homicidal Ideation: No Goal/Treatment Plan - Goal/Treatment Plan Need for Continued Stay: Remain at risks for inpatient hospitalization, Discharge may exacerbated symptoms Progress Toward Problem(s) and Goals/Treatment Plan: Schizoaffective Disorder -Individual and group therapy -Medicine consult -Continue Zyprexa 12.5 mg PO HS -Continue Prozac 20 mg PO Daily -PT screening -Disposition planning Estimated Date of D/C: 02/26/18
[2018-02-21] MEDS: Ammonium Lactate 12% Cream (140 g) TOP SCH (12:53)
[2018-02-22 07:12] LABS: BLOOD UREA NITROGEN 17 mg/dl (9-20); CALCIUM 9.1 mg/dL (8.4-10.2); GFR NON-AFRICAN AMERICAN > 60
[2018-02-22] MEDS: Insulin Lispro (humaLOG) 100 Units/ml Inj SC SCH ×4 (09:12→21:07)
[2018-02-22] MEDS: Ammonium Lactate 12% Cream (140 g) TOP SCH (09:13)
[2018-02-22] MEDS: Multivitamin With Minerals Tab PO SCH (09:17)
--- NOTE | 2018-02-22 10:42 | PCM.PYCHPN ---
Psychiatric Progress Note - Psychiatric Progress Note Patient seen today, length of contact: Pt evaluated, case discussed w/ team, chart reviewed Patient Chief Complaint: Paranoia Problems Identified/Issues Discussed: Patient continues to think that someone at his intermediate was trying to kill him and states "I will kill them first." He denies acute paranoid towards hospital staff. He gets irritable with headline writer when headline writer tries to discuss returning back to the intermediate. He has been compliant with medications in the hospital. No adverse effects to medications reported. Medication Change: Yes (Increase Zyprexa) Medical Record Reviewed: Yes Consults ordered or reviewed: Medicine consult Mental Status Examination - Cognitive Function Orientation: Person, Place, Situation, Time Association: WNL Fund of Knowledge: WN Decription of patient's judgement and insights: Poor I/J - Mood Mood: Anxious - Affect Affect: Other (Irritable) - Speech Speech: Soft - Formal Thought Process Formal Thought Process: Delusions, Paranoia Psychotic Thoughts and Behaviors: +Paranoia - Suicidal Ideation Suicidal Ideation: No - Homicidal Ideation Homicidal Ideation: No Goal/Treatment Plan - Goal/Treatment Plan Need for Continued Stay: Remain at risks for inpatient hospitalization, Discharge may exacerbated symptoms Progress Toward Problem(s) and Goals/Treatment Plan: Schizoaffective Disorder -Individual and group therapy -Medicine consult -Increase Zyprexa to 15 mg PO HS -Continue Prozac 20 mg PO Daily -Disposition planning Estimated Date of D/C: 02/26/18
[2018-02-23] MEDS: Insulin Lispro (humaLOG) 100 Units/ml Inj SC SCH ×4 (08:28→22:00)
[2018-02-23] MEDS: Ergocalciferol 50,000 Intl Units Cap PO SCH (08:28)
[2018-02-23] MEDS: Ammonium Lactate 12% Cream (140 g) TOP SCH (08:29)
[2018-02-23] MEDS: Multivitamin With Minerals Tab PO SCH (08:32)
--- NOTE | 2018-02-23 10:02 | PCM.PYCHPN ---
Psychiatric Progress Note - Psychiatric Progress Note Patient seen today, length of contact: Pt evaluated, case discussed w/ team, chart reviewed Patient Chief Complaint: Paranoia Problems Identified/Issues Discussed: Patient continues to be paranoid and has been observed talking to himself, despite him denying hearing AH, patient is likely internally preoccupied and responding to internal stimuli. He has been compliant with medications in the hospital. No adverse effects to medications reported. Medication Change: No Medical Record Reviewed: Yes Consults ordered or reviewed: Medicine consult Mental Status Examination - Cognitive Function Orientation: Person, Place, Situation, Time Association: [facility] Fund of Knowledge: [facility] Decription of patient's judgement and insights: Poor I/J - Mood Mood: Anxious - Affect Affect: Other (Labile) - Speech Speech: Appropriate - Formal Thought Process Formal Thought Process: Hallucinations, Delusions, Paranoia Psychotic Thoughts and Behaviors: +Paranoia; +Internally preoccupied, talking to himself - Suicidal Ideation Suicidal Ideation: No - Homicidal Ideation Homicidal Ideation: No Goal/Treatment Plan - Goal/Treatment Plan Need for Continued Stay: Remain at risks for inpatient hospitalization, Discharge may exacerbated symptoms Progress Toward Problem(s) and Goals/Treatment Plan: Schizoaffective Disorder -Individual and group therapy -Medicine consult -Continue Zyprexa 15 mg PO HS -Continue Prozac 20 mg PO Daily -Disposition planning Estimated Date of D/C: 02/27/18
[2018-02-24] MEDS: Multivitamin With Minerals Tab PO SCH (08:38)
[2018-02-24] MEDS: Insulin Lispro (humaLOG) 100 Units/ml Inj SC SCH ×4 (08:43→22:00)
--- NOTE | 2018-02-24 09:32 | PCM.PYCHPN ---
Psychiatric Progress Note - Psychiatric Progress Note Patient seen today, length of contact: Pt evaluated, case discussed w/ team, chart reviewed Patient Chief Complaint: Paranoia Problems Identified/Issues Discussed: Patient continues to be paranoid, denies AH/VH. He has been compliant with medications in the hospital. No adverse effects to medications reported. Medication Change: No Medical Record Reviewed: Yes Consults ordered or reviewed: Medicine consult Mental Status Examination - Cognitive Function Orientation: Person, Place, Situation, Time Association: WNL Fund of Knowledge: WNL Decription of patient's judgement and insights: Poor I/J - Mood Mood: Anxious - Affect Affect: Other (Labile) - Speech Speech: Appropriate - Formal Thought Process Formal Thought Process: Paranoia Psychotic Thoughts and Behaviors: +Paranoia - Suicidal Ideation Suicidal Ideation: No - Homicidal Ideation Homicidal Ideation: No Goal/Treatment Plan - Goal/Treatment Plan Need for Continued Stay: Remain at risks for inpatient hospitalization, Discharge may exacerbated symptoms Progress Toward Problem(s) and Goals/Treatment Plan: Schizoaffective Disorder -Individual and group therapy -Medicine consult -Continue Zyprexa 15 mg PO HS -Continue Prozac 20 mg PO Daily -Disposition planning Estimated Date of D/C: 02/27/18
[2018-02-24] MEDS: Ammonium Lactate 12% Cream (140 g) TOP SCH (13:22)
[2018-02-25] MEDS: Insulin Lispro (humaLOG) 100 Units/ml Inj SC SCH (08:37)
[2018-02-25] MEDS: Ammonium Lactate 12% Cream (140 g) TOP SCH (08:37)
[2018-02-25] MEDS: Multivitamin With Minerals Tab PO SCH (08:40)
--- NOTE | 2018-02-25 11:33 | PCM.PYCHPN ---
Psychiatric Progress Note - Psychiatric Progress Note Patient seen today, length of contact: Pt evaluated, case discussed w/ team, chart reviewed Patient Chief Complaint: Paranoia Problems Identified/Issues Discussed: Patient continues to be paranoid and has been observed talking to himself, although he denies AH/VH. He continues to have poor insight/judgment and is refusing to return to the snf. No adverse effects to medications reported. Medication Change: Yes (Increase Zyprexa) Medical Record Reviewed: Yes Consults ordered or reviewed: Medicine consult Mental Status Examination - Cognitive Function Orientation: Person, Place, Situation, Time Association: [facility] Fund of Knowledge: [facility] Decription of patient's judgement and insights: Poor I/J - Mood Mood: Anxious - Affect Affect: Other (Labile) - Speech Speech: Appropriate - Formal Thought Process Formal Thought Process: Paranoia Psychotic Thoughts and Behaviors: +Paranoia; +Internal preoccupation, talking to himself - Suicidal Ideation Suicidal Ideation: No - Homicidal Ideation Homicidal Ideation: No Goal/Treatment Plan - Goal/Treatment Plan Need for Continued Stay: Remain at risks for inpatient hospitalization, Discharge may exacerbated symptoms Progress Toward Problem(s) and Goals/Treatment Plan: Schizoaffective Disorder -Individual and group therapy -Medicine consult -Increase Zyprexa -Continue Prozac 20 mg PO Daily -Disposition planning Estimated Date of D/C: 02/28/18
--- NOTE | 2018-02-26 09:24 | PCM.PYCHPN ---
Psychiatric Progress Note - Psychiatric Progress Note Patient seen today, length of contact: Pt evaluated, case discussed w/ team, chart reviewed Patient Chief Complaint: Paranoia Problems Identified/Issues Discussed: Patient continues to be paranoid w/ poor insight and judgment. He continues to refuse to return to the jail because he feels he is too high functioning and is also worried they are trying to kill him there. No adverse effects to medications reported. Medication Change: No Medical Record Reviewed: Yes Consults ordered or reviewed: Medicine consult Mental Status Examination - Cognitive Function Orientation: Person, Place, Situation, Time Association: WN Fund of Knowledge: [facility] Decription of patient's judgement and insights: Poor I/J - Mood Mood: Anxious - Affect Affect: Other (Labile) - Speech Speech: Appropriate - Formal Thought Process Formal Thought Process: Paranoia Psychotic Thoughts and Behaviors: +Paranoia; +Internal preoccupation, talking to himself - Suicidal Ideation Suicidal Ideation: No - Homicidal Ideation Homicidal Ideation: No Goal/Treatment Plan - Goal/Treatment Plan Need for Continued Stay: Remain at risks for inpatient hospitalization, Discharge may exacerbated symptoms Progress Toward Problem(s) and Goals/Treatment Plan: Schizoaffective Disorder -Individual and group therapy -Medicine consult -Continue Zyprexa 17.5 mg PO HS -Continue Prozac 20 mg PO Daily -Disposition planning Estimated Date of D/C: 03/01/18
[2018-02-26] MEDS: Insulin Lispro (humaLOG) 100 Units/ml Inj SC SCH (09:59)
[2018-02-26] MEDS: Multivitamin With Minerals Tab PO SCH (10:30)
[2018-02-26] MEDS: Ammonium Lactate 12% Cream (140 g) TOP SCH (10:30)
[2018-02-27] MEDS: Insulin Lispro (humaLOG) 100 Units/ml Inj SC SCH (08:44)
[2018-02-27] MEDS: Multivitamin With Minerals Tab PO SCH (08:52)
[2018-02-27] MEDS: Ammonium Lactate 12% Cream (140 g) TOP SCH (08:52)
--- NOTE | 2018-02-27 11:31 | PCM.PYCHPN ---
Psychiatric Progress Note - Psychiatric Progress Note Patient seen today, length of contact: Pt evaluated, case discussed w/ team, chart reviewed Patient Chief Complaint: Paranoia Problems Identified/Issues Discussed: Patient continues to be paranoid w/ poor insight and judgment. He refuses to return to the detention due to acute paranoia. He can not explain his current medical conditions and which medications he takes. He believes that he can be discharged from the hospital and that he can find a place on his own, despite his physical disability, lack of access to financial resources and lack of social support. Patient does not have capacity to make medical decisions at this time. Medication Change: No Medical Record Reviewed: Yes Consults ordered or reviewed: Medicine consult Mental Status Examination - Cognitive Function Orientation: Person, Place, Situation, Time Memory: Impaired Association: WNL Fund of Knowledge: [facility] Decription of patient's judgement and insights: Poor I/J - Mood Mood: Anxious - Affect Affect: Other (Labile) - Speech Speech: Appropriate - Formal Thought Process Formal Thought Process: Paranoia Psychotic Thoughts and Behaviors: +Paranoia; +Internal preoccupation, talking to himself - Suicidal Ideation Suicidal Ideation: No - Homicidal Ideation Homicidal Ideation: No Goal/Treatment Plan - Goal/Treatment Plan Need for Continued Stay: Remain at risks for inpatient hospitalization, Discharge may exacerbated symptoms Progress Toward Problem(s) and Goals/Treatment Plan: Schizoaffective Disorder -Individual and group therapy -Medicine consult -Continue Zyprexa 17.5 mg PO HS; will continue to titrate as clinically indicat ed -Continue Prozac 20 mg PO Daily -Disposition planning Estimated Date of D/C: 03/04/18
[2018-02-28] MEDS: Ammonium Lactate 12% Cream (140 g) TOP SCH (08:53)
[2018-02-28] MEDS: Insulin Lispro (humaLOG) 100 Units/ml Inj SC SCH (08:53)
[2018-02-28] MEDS: Multivitamin With Minerals Tab PO SCH (08:56)
--- NOTE | 2018-02-28 10:35 | PCM.PYCHPN ---
Psychiatric Progress Note - Psychiatric Progress Note Patient seen today, length of contact: Pt evaluated, case discussed w/ team, chart reviewed Patient Chief Complaint: Paranoia Problems Identified/Issues Discussed: No new events overnight. Patient continues to be paranoid w/ poor insight and judgment. He refuses to return to the half-way due to acute paranoia. He can not explain his current medical conditions and which medications he takes. He believes that he can be discharged from the hospital and that he can find a place on his own, despite his physical disability, lack of access to financial resources and lack of social support. Patient does not have capacity to make medical decisions at this time. MOCA testing - deficits in visuospatial/executive function, memory, language, and attention Medication Change: No Medical Record Reviewed: Yes Consults ordered or reviewed: Medicine consult Mental Status Examination - Cognitive Function Orientation: Person, Place, Situation, Time Memory: Impaired Attention: Poor Concentration: Poor Association: Loose Fund of Knowledge: Poor Decription of patient's judgement and insights: Poor I/J - Mood Mood: Anxious - Affect Affect: Other (Labile) - Speech Speech: Appropriate - Formal Thought Process Formal Thought Process: Paranoia Psychotic Thoughts and Behaviors: +Paranoia; +Internal preoccupation, talking to himself - Suicidal Ideation Suicidal Ideation: No - Homicidal Ideation Homicidal Ideation: No Goal/Treatment Plan - Goal/Treatment Plan Need for Continued Stay: Remain at risks for inpatient hospitalization, Discharge may exacerbated symptoms Progress Toward Problem(s) and Goals/Treatment Plan: Schizoaffective Disorder -Individual and group therapy -Medicine consult -Continue Zyprexa 17.5 mg PO HS; will continue to titrate as clinically indicated -Continue Prozac 20 mg PO Daily -Disposition planning Estimated Date of D/C: 03/06/18
--- NOTE | 2018-03-01 08:44 | PCM.PYCHPN ---
Psychiatric Progress Note - Psychiatric Progress Note Patient seen today, length of contact: Pt evaluated, case discussed w/ team, chart reviewed Patient Chief Complaint: Paranoia Problems Identified/Issues Discussed: Patient continues to be paranoid w/ poor insight and judgment. He continues to refuse to return to the [facility] due to acute paranoia. He can not explain his current medical conditions and which medications he takes. He believes that he can be discharged from the hospital and that he can find a place on his own, despite his physical disability, lack of access to financial resources and lack of social support. Patient does not have capacity to make medical decisions at this time. MOCA testing - deficits in visuospatial/executive function, memory, language, and attention Medication Change: Yes (Increase Zyprexa) Medical Record Reviewed: Yes Consults ordered or reviewed: Medicine consult Mental Status Examination - Cognitive Function Orientation: Person, Place, Situation, Time Memory: Impaired Attention: Poor Concentration: Poor Association: Loose Fund of Knowledge: Poor Decription of patient's judgement and insights: Poor I/J - Mood Mood: Anxious - Affect Affect: Other (Labile) - Speech Speech: Appropriate - Formal Thought Process Formal Thought Process: Paranoia Psychotic Thoughts and Behaviors: +Paranoia; +Internal preoccupation, talking to himself - Suicidal Ideation Suicidal Ideation: No - Homicidal Ideation Homicidal Ideation: No Goal/Treatment Plan - Goal/Treatment Plan Need for Continued Stay: Remain at risks for inpatient hospitalization, Discharge may exacerbated symptoms Progress Toward Problem(s) and Goals/Treatment Plan: Schizoaffective Disorder -Individual and group therapy -Medicine consult -Increase Zyprexa to 20 mg PO HS -Continue Prozac 20 mg PO Daily -Disposition planning Estimated Date of D/C: 03/08/18
[2018-03-01] MEDS: Ammonium Lactate 12% Cream (140 g) TOP SCH (08:49)
[2018-03-01] MEDS: Insulin Lispro (humaLOG) 100 Units/ml Inj SC SCH (08:51)
[2018-03-01] MEDS: Multivitamin With Minerals Tab PO SCH (08:54)
[2018-03-02] MEDS: Multivitamin With Minerals Tab PO SCH (08:19)
[2018-03-02] MEDS: Ammonium Lactate 12% Cream (140 g) TOP SCH (08:20)
[2018-03-02] MEDS: Insulin Lispro (humaLOG) 100 Units/ml Inj SC SCH (08:20)
--- NOTE | 2018-03-02 10:28 | PCM.PYCHPN ---
Psychiatric Progress Note - Psychiatric Progress Note Patient seen today, length of contact: Pt evaluated, case discussed w/ team, chart reviewed Patient Chief Complaint: pt is less agitated and less anxious with flat affect .pt denies side efects . Medication Change: Yes (Increase Zyprexa) Medical Record Reviewed: Yes Mental Status Examination - Cognitive Function Orientation: Person, Place, Situation, Time Memory: Impaired Attention: Poor Concentration: Poor Association: Loose Fund of Knowledge: Poor - Mood Mood: Anxious - Affect Affect: Other (Labile) - Speech Speech: Appropriate - Formal Thought Process Formal Thought Process: Paranoia - Suicidal Ideation Suicidal Ideation: No - Homicidal Ideation Homicidal Ideation: No Goal/Treatment Plan - Goal/Treatment Plan Need for Continued Stay: Remain at risks for inpatient hospitalization, Discharge may exacerbated symptoms Progress Toward Problem(s) and Goals/Treatment Plan: continue meds as regimen . d/c plans as per dr panda Estimated Date of D/C: 03/08/18
[2018-03-02] MEDS: Ergocalciferol 50,000 Intl Units Cap PO SCH (14:39)
[2018-03-03] MEDS: Ammonium Lactate 12% Cream (140 g) TOP SCH (09:03)
[2018-03-03] MEDS: Insulin Lispro (humaLOG) 100 Units/ml Inj SC SCH (09:03)
[2018-03-03] MEDS: Multivitamin With Minerals Tab PO SCH (09:04)
--- NOTE | 2018-03-03 14:55 | PCM.PYCHPN ---
Psychiatric Progress Note - Psychiatric Progress Note Patient seen today, length of contact: Pt evaluated, case discussed w/ team, chart reviewed Patient Chief Complaint: pt has remained with paranoid ideation and remains with poor insight and poor judgement and need further stabilization.pt is less agitated and less anxious with flat affect .pt denies side efects . Medication Change: Yes (Increase Zyprexa) Medical Record Reviewed: Yes Mental Status Examination - Cognitive Function Orientation: Person, Place, Situation, Time Memory: Impaired Attention: Poor Concentration: Poor Association: Loose Fund of Knowledge: Poor - Mood Mood: Anxious - Affect Affect: Other (Labile) - Speech Speech: Appropriate - Formal Thought Process Formal Thought Process: Paranoia - Suicidal Ideation Suicidal Ideation: No - Homicidal Ideation Homicidal Ideation: No Goal/Treatment Plan - Goal/Treatment Plan Need for Continued Stay: Remain at risks for inpatient hospitalization, Discharge may exacerbated symptoms Progress Toward Problem(s) and Goals/Treatment Plan: continue meds as regimen . d/c plans as per dr panda Estimated Date of D/C: 03/08/18
[2018-03-04] MEDS: Insulin Lispro (humaLOG) 100 Units/ml Inj SC SCH (08:48)
[2018-03-04] MEDS: Multivitamin With Minerals Tab PO SCH (08:53)
[2018-03-04] MEDS: Ammonium Lactate 12% Cream (140 g) TOP SCH (08:55)
--- NOTE | 2018-03-04 08:59 | PCM.PYCHPN ---
Psychiatric Progress Note - Psychiatric Progress Note Patient seen today, length of contact: Pt evaluated, case discussed w/ team, chart reviewed Patient Chief Complaint: Paranoia Problems Identified/Issues Discussed: No new events over the weekend. Patient continues to be paranoid w/ poor insight and judgment. He continues to refuse to return to the [facility] due to acute paranoia. He can not explain his current medical conditions and which medications he takes. He believes that he can be discharged from the hospital and that he can find a place on his own, despite his physical disability, lack of access to financial resources and lack of social support. Patient does not have capacity to make medical decisions at this time. MOCA testing - deficits in visuospatial/executive function, memory, language, and attention Medication Change: No Medical Record Reviewed: Yes Consults ordered or reviewed: Medicine consult Mental Status Examination - Cognitive Function Orientation: Person, Place, Situation, Time Memory: Impaired Attention: Poor Concentration: Poor Association: Loose Fund of Knowledge: Poor Decription of patient's judgement and insights: Poor I/J - Mood Mood: Anxious - Affect Affect: Broad - Speech Speech: Appropriate - Formal Thought Process Formal Thought Process: Paranoia Psychotic Thoughts and Behaviors: +Paranoia - Suicidal Ideation Suicidal Ideation: No - Homicidal Ideation Homicidal Ideation: No Goal/Treatment Plan - Goal/Treatment Plan Need for Continued Stay: Remain at risks for inpatient hospitalization, Discharge may exacerbated symptoms Progress Toward Problem(s) and Goals/Treatment Plan: Schizoaffective Disorder -Individual and group therapy -Medicine consult -Continue Zyprexa 20 mg PO HS -Continue Prozac 20 mg PO Daily -Disposition planning Estimated Date of D/C: 03/15/18
--- NOTE | 2018-03-05 08:17 | PCM.PYCHPN ---
Psychiatric Progress Note - Psychiatric Progress Note Patient seen today, length of contact: Pt evaluated, case discussed w/ team, chart reviewed Patient Chief Complaint: Paranoia Problems Identified/Issues Discussed: No new events. Patient continues to be paranoid w/ poor insight and judgment. He continues to refuse to return to the [facility] due to acute paranoia. He can not explain his current medical conditions and which medications he takes. He believes that he can be discharged from the hospital and that he can find a place on his own, despite his physical disability, lack of access to financial resources and lack of social support. Patient does not have capacity to make medical decisions at this time. MOCA testing - deficits in visuospatial/executive function, memory, language, and attention Medication Change: No Medical Record Reviewed: Yes Consults ordered or reviewed: Medicine consult Mental Status Examination - Cognitive Function Orientation: Person, Place, Situation, Time Memory: Impaired Attention: Poor Concentration: Poor Association: Loose Fund of Knowledge: Poor Decription of patient's judgement and insights: Poor I/J - Mood Mood: Anxious - Affect Affect: Broad - Speech Speech: Appropriate - Formal Thought Process Formal Thought Process: Paranoia Psychotic Thoughts and Behaviors: +Paranoia - Suicidal Ideation Suicidal Ideation: No - Homicidal Ideation Homicidal Ideation: No Goal/Treatment Plan - Goal/Treatment Plan Need for Continued Stay: Remain at risks for inpatient hospitalization, Discharge may exacerbated symptoms Progress Toward Problem(s) and Goals/Treatment Plan: Schizoaffective Disorder -Individual and group therapy -Medicine consult -Continue Zyprexa 20 mg PO HS -Continue Prozac 20 mg PO Daily -Disposition planning- will discuss guardianship with team and medical reimbursement manager Estimated Date of D/C: 03/15/18
[2018-03-05] MEDS: Ammonium Lactate 12% Cream (140 g) TOP SCH (08:44)
[2018-03-05] MEDS: Insulin Lispro (humaLOG) 100 Units/ml Inj SC SCH (08:46)
[2018-03-05] MEDS: Multivitamin With Minerals Tab PO SCH (12:54)
[2018-03-06] MEDS: Ammonium Lactate 12% Cream (140 g) TOP SCH (08:25)
[2018-03-06] MEDS: Insulin Lispro (humaLOG) 100 Units/ml Inj SC SCH (08:26)
[2018-03-06] MEDS: Multivitamin With Minerals Tab PO SCH (08:29)
--- NOTE | 2018-03-06 09:00 | PCM.PYCHPN ---
Psychiatric Progress Note - Psychiatric Progress Note Patient seen today, length of contact: Pt evaluated, case discussed w/ team, chart reviewed Patient Chief Complaint: Paranoia Problems Identified/Issues Discussed: No new events overnight. Patient continues to be paranoid w/ poor insight and judgment. He continues to refuse to return to the [facility] due to acute paranoia. He can not explain his current medical conditions and which medications he takes. He believes that he can be discharged from the hospital and that he can find a place on his own, despite his physical disability, lack of access to financial resources and lack of social support. Patient does not have capacity to make medical decisions at this time. MOCA testing - deficits in visuospatial/executive function, memory, language, and attention Medication Change: No Medical Record Reviewed: Yes Consults ordered or reviewed: Medicine consult Mental Status Examination - Cognitive Function Orientation: Person, Place, Situation, Time Memory: Impaired Attention: Poor Concentration: Poor Association: Loose Fund of Knowledge: Poor Decription of patient's judgement and insights: Poor I/J - Mood Mood: Anxious - Affect Affect: Broad - Speech Speech: Appropriate - Formal Thought Process Formal Thought Process: Paranoia Psychotic Thoughts and Behaviors: +Paranoia - Suicidal Ideation Suicidal Ideation: No - Homicidal Ideation Homicidal Ideation: No Goal/Treatment Plan - Goal/Treatment Plan Need for Continued Stay: Remain at risks for inpatient hospitalization, Discharge may exacerbated symptoms Progress Toward Problem(s) and Goals/Treatment Plan: Schizoaffective Disorder -Individual and group therapy -Medicine consult -Continue Zyprexa 20 mg PO HS -Continue Prozac 20 mg PO Daily -Disposition planning- start guardianship process Estimated Date of D/C: 05/03/18
--- NOTE | 2018-03-07 08:11 | PCM.PYCHPN ---
Psychiatric Progress Note - Psychiatric Progress Note Patient seen today, length of contact: Pt evaluated, case discussed w/ team, chart reviewed Patient Chief Complaint: Paranoia Problems Identified/Issues Discussed: Patient was informed that we would be starting the guardianship process. Patient continues to be paranoid w/ poor insight and judgment. He continues to refuse to return to the residential due to acute paranoia. He can not explain his current medical conditions and which medications he takes. He believes that he can be discharged from the hospital and that he can find a place on his own, despite his physical disability, lack of access to financial resources and lack of social support. Patient does not have capacity to make medical decisions at this time. MOCA testing - deficits in visuospatial/executive function, memory, language, and attention Medication Change: No Medical Record Reviewed: Yes Consults ordered or reviewed: Medicine consult Mental Status Examination - Cognitive Function Orientation: Person, Place, Situation, Time Memory: Impaired Attention: Poor Concentration: Poor Association: Loose Fund of Knowledge: Poor Decription of patient's judgement and insights: Poor I/J - Mood Mood: Anxious - Affect Affect: Broad - Speech Speech: Appropriate - Formal Thought Process Formal Thought Process: Paranoia Psychotic Thoughts and Behaviors: +Paranoia - Suicidal Ideation Suicidal Ideation: No - Homicidal Ideation Homicidal Ideation: No Goal/Treatment Plan - Goal/Treatment Plan Need for Continued Stay: Remain at risks for inpatient hospitalization, Discharge may exacerbated symptoms Progress Toward Problem(s) and Goals/Treatment Plan: Schizoaffective Disorder -Individual and group therapy -Medicine consult -Continue Zyprexa 20 mg PO HS -Continue Prozac 20 mg PO Daily -Disposition planning- guardianship Estimated Date of D/C: 05/03/18
[2018-03-07] MEDS: Ammonium Lactate 12% Cream (140 g) TOP SCH (08:44)
[2018-03-07] MEDS: Insulin Lispro (humaLOG) 100 Units/ml Inj SC SCH (08:45)
[2018-03-07] MEDS: Multivitamin With Minerals Tab PO SCH (08:46)
--- NOTE | 2018-03-08 08:34 | PCM.PYCHPN ---
Psychiatric Progress Note - Psychiatric Progress Note Patient seen today, length of contact: Pt evaluated, case discussed w/ team, chart reviewed Patient Chief Complaint: Paranoia Problems Identified/Issues Discussed: No new events overnight. Patient was informed that we would be starting the guardianship process. Patient continues to be paranoid w/ poor insight and judgment. He continues to refuse to return to the [facility] due to acute paranoia. He can not explain his current medical conditions and which medications he takes. He believes that he can be discharged from the hospital and that he can find a place on his own, despite his physical disability, lack of access to financial resources and lack of social support. Patient does not have capacity to make medical decisions at this time. MOCA testing - deficits in visuospatial/executive function, memory, language, and attention Medication Change: No Medical Record Reviewed: Yes Consults ordered or reviewed: Medicine consult Mental Status Examination - Cognitive Function Orientation: Person, Place, Situation, Time Memory: Impaired Attention: Poor Concentration: Poor Association: Loose Fund of Knowledge: Poor Decription of patient's judgement and insights: Poor I/J - Mood Mood: Anxious - Affect Affect: Broad - Speech Speech: Appropriate - Formal Thought Process Formal Thought Process: Paranoia Psychotic Thoughts and Behaviors: +Paranoia - Suicidal Ideation Suicidal Ideation: No - Homicidal Ideation Homicidal Ideation: No Goal/Treatment Plan - Goal/Treatment Plan Need for Continued Stay: Remain at risks for inpatient hospitalization, Discharge may exacerbated symptoms Progress Toward Problem(s) and Goals/Treatment Plan: Schizoaffective Disorder -Individual and group therapy -Medicine consult -Continue Zyprexa 20 mg PO HS -Continue Prozac 20 mg PO Daily -Disposition planning- start guardianship process Estimated Date of D/C: 05/03/18
[2018-03-08] MEDS: Ammonium Lactate 12% Cream (140 g) TOP SCH (09:35)
[2018-03-08] MEDS: Multivitamin With Minerals Tab PO SCH (09:37)
[2018-03-08] MEDS: Insulin Lispro (humaLOG) 100 Units/ml Inj SC SCH (09:51)
--- NOTE | 2018-03-08 10:16 | CP.PCM.CON ---
History of Present Illness - History of Present Illness History of Present Illness: Pt is a 68 year old male admitted to [facility] and refered to the screen writer for evaluation. On the DRS, pt scored an overall score of 129 . Pt scored within normal limits on all tasks. Pt's Attention, Construction, memory, Initiation skills and conceptualization skills all fell within normal limits. Overall 129 Attention 34 Construction 4 Conceptualization 34 Memory 23 Initiation 34 Cognitive skills within normal limits Past Patient History - Infectious Disease Hx of Infectious Diseases: None - Past Medical History & Family History Past Medical History?: Yes - Past Social History Smoking Status: Former Smoker Alcohol: None - CARDIAC Hx Hypertension: Yes - NEUROLOGICAL Other/Comment: tremors - ENDOCRINE/METABOLIC Hx Diabetes Mellitus Type 1: Yes - MUSCULOSKELETAL/RHEUMATOLOGICAL Hx Falls: Yes Hx Unsteady Gait: Yes - GASTROINTESTINAL Hx Gastroesophageal Reflux: Yes - PSYCHIATRIC Hx Bipolar Disorder: Yes Hx Depression: Yes Hx Schizophrenia: Yes Hx Substance Use: No - SURGICAL HISTORY Hx Surgeries: Yes Other/Comment: retinal detachment in 1981 - ANESTHESIA Hx Anesthesia: No Meds Allergies/Adverse Reactions: Allergies Allergy/AdvReac Type Severity Reaction Status Date / Time olive oil Allergy Mild Verified 10/26/16 21:22 - Medications Medications: Current Medications Acetaminophen (Tylenol 325mg Tab) 650 mg PO Q4 PRN PRN Reason: Pain, moderate (4-7) Last Admin: 02/25/18 10:30 Dose: 650 mg Al Hydrox/Mg Hydrox/Simethicone (Maalox Plus 30 Ml) 30 ml PO Q4 PRN PRN Reason: Dyspepsia Amlodipine Besylate (Norvasc) 10 mg PO DAILY [facility] Last Admin: 03/08/18 09:36 Dose: 10 mg Bismuth Subsalicylate (Pepto-Bismol) 524 mg PO Q4 PRN PRN Reason: Diarrhea Dextrose (Dextrose 50% Inj) 0 ml IV STAT PRN; Protocol PRN Reason: Hypoglycemia Protocol Dextrose (Glutose 15) 0 gm PO ONCE PRN; Protocol PRN Reason: Hypoglycemia Protocol Docusate Sodium (Colace) 100 mg PO BID [facility] Last Admin: 03/08/18 09:36 Dose: 100 mg Ergocalciferol (Drisdol 50,000 Intl Units Cap) 1 cap PO Q7D [facility] Last Admin: 03/02/18 14:39 Dose: 1 cap Famotidine (Pepcid) 20 mg PO HS [facility] Last Admin: 03/08/18 03:16 Dose: Not Given Fluoxetine HCl (Prozac) 20 mg PO DAILY [facility] Last Admin: 03/08/18 09:38 Dose: 20 mg Furosemide (Lasix) 40 mg PO BID [facility] Last Admin: 03/08/18 09:37 Dose: 40 mg Gabapentin (Neurontin) 100 mg PO DAILY [facility] Last Admin: 03/08/18 09:38 Dose: 100 mg Glucagon (Glucagen Diagnostic Kit) 0 mg IM STAT PRN; Protocol PRN Reason: Hypoglycemia Protocol Insulin Human Lispro (Humalog) 0 units SC ACB [facility]; Protocol Last Admin: 03/08/18 09:51 Dose: Not Given Lactic Acid (Lac-Hydrin 12% Cream (140 G)) 1 ea TOP DAILY [facility] Last Admin: 03/08/18 09:35 Dose: 1 applic Magnesium Hydroxide (Milk Of Magnesia) 30 ml PO HS PRN PRN Reason: Constipation Metformin HCl (Glucophage) 500 mg PO BIDWM [facility] Last Admin: 03/08/18 09:37 Dose: 500 mg Multivitamins/Minerals (Therapeutic-M Tab) 1 tab PO DAILY [facility] Last Admin: 03/08/18 09:37 Dose: 1 tab Olanzapine (Zyprexa) 20 mg PO HS [facility] Last Admin: 03/08/18 03:17 Dose: Not Given Sennosides (Senokot Tab) 17.2 mg PO BID [facility] Last Admin: 03/08/18 09:37 Dose: 17.2 mg Thiamine HCl (Vitamin B1 Tab) 100 mg PO DAILY [facility] Last Admin: 03/08/18 09:37 Dose: 100 mg Results - Vital Signs Recent Vital Signs: Last Vital Signs Temp 98.0 F 03/08/18 06:00 Pulse 93 H 03/08/18 09:36 Resp 18 03/08/18 06:00 BP 128/73 03/08/18 09:37 Pulse Ox 19 L 02/21/18 06:00 - Labs Result Diagrams: 02/18/18 17:40 02/22/18 06:00 Labs: Laboratory Results - last 24 hr 03/07/18 03/08/18 05:14 06:40 POC Glucose (mg/dL) 92 90
[2018-03-09] MEDS: Insulin Lispro (humaLOG) 100 Units/ml Inj SC SCH (08:31)
[2018-03-09] MEDS: Ammonium Lactate 12% Cream (140 g) TOP SCH (08:31)
[2018-03-09] MEDS: Ergocalciferol 50,000 Intl Units Cap PO SCH (08:32)
[2018-03-09] MEDS: Multivitamin With Minerals Tab PO SCH (08:32)
--- NOTE | 2018-03-09 18:59 | PCM.PYCHPN ---
Psychiatric Progress Note - Psychiatric Progress Note Patient seen today, length of contact: Pt evaluated, case discussed w/ team, chart reviewed Patient Chief Complaint: pt Problems Identified/Issues Discussed: alteration in mood in cognition self pending guardianship? does not want to go back to jail Medical Problems: per chart Diagnostic Results: per psychiatry per medicine per nursing per social work manager per recreational worker DSM 5 Symptoms Update: alteration in mood and cognition Medication Change: No Medical Record Reviewed: Yes Consults ordered or reviewed: pt seen by hospitalist Mental Status Examination - Cognitive Function Orientation: Person, Place, Situation, Time Memory: Impaired Attention: Poor Concentration: Poor Association: Loose Fund of Knowledge: Poor Decription of patient's judgement and insights: impaired - Mood Mood: Anxious - Affect Affect: Broad - Speech Speech: Appropriate - Formal Thought Process Formal Thought Process: Paranoia - Suicidal Ideation Suicidal Ideation: No - Homicidal Ideation Homicidal Ideation: No Goal/Treatment Plan - Goal/Treatment Plan Need for Continued Stay: Remain at risks for inpatient hospitalization, Discharge may exacerbated symptoms Progress Toward Problem(s) and Goals/Treatment Plan: inpt milieu adjust med per status vital signs and clinical observation per clinical status discharge planning in progress working related to possible guardianship Estimated Date of D/C: 05/03/18 If changed, why: defers
[2018-03-10] MEDS: Ammonium Lactate 12% Cream (140 g) TOP SCH (10:31)
[2018-03-10] MEDS: Insulin Lispro (humaLOG) 100 Units/ml Inj SC SCH (10:32)
[2018-03-10] MEDS: Multivitamin With Minerals Tab PO SCH (10:33)
--- NOTE | 2018-03-11 08:05 | PCM.PYCHPN ---
Psychiatric Progress Note - Psychiatric Progress Note Patient seen today, length of contact: Pt evaluated, case discussed w/ team, chart reviewed Patient Chief Complaint: Paranoia Problems Identified/Issues Discussed: No new events over the weekend. Patient continues to be paranoid w/ poor insight and judgment. He continues to [facility] to [facility] to the [facility] due to acute paranoia. He can not explain his current medical conditions and which medications he takes. He believes that he can be discharged from the hospital and that he can find a place on his own, despite his physical disability, lack of access to financial resources and lack of social support. Patient does not have capacity to make medical decisions at this time. MOCA testing - deficits in visuospatial/executive function, memory, language, and attention Medication Change: No Medical Record Reviewed: Yes Consults ordered or reviewed: Medicine consult Mental Status Examination - Cognitive Function Orientation: Person, Place, Situation, Time Memory: Impaired Attention: Poor Concentration: Poor Association: Loose Fund of Knowledge: Poor Decription of patient's judgement and insights: Poor I/J - Mood Mood: Anxious - Affect Affect: Broad - Speech Speech: Appropriate - Formal Thought Process Formal Thought Process: Paranoia Psychotic Thoughts and Behaviors: +Paranoia - Suicidal Ideation Suicidal Ideation: No - Homicidal Ideation Homicidal Ideation: No Goal/Treatment Plan - Goal/Treatment Plan Need for Continued Stay: Remain at risks for inpatient hospitalization, Discharge may exacerbated symptoms Progress Toward Problem(s) and Goals/Treatment Plan: Schizoaffective Disorder -Individual and group therapy -Medicine consult -Continue Zyprexa 20 mg PO HS -Continue Prozac 20 mg PO Daily -Disposition planning- start guardianship process Estimated Date of D/C: 05/03/18
[2018-03-11] MEDS: Ammonium Lactate 12% Cream (140 g) TOP SCH (09:06)
[2018-03-11] MEDS: Insulin Lispro (humaLOG) 100 Units/ml Inj SC SCH (09:06)
[2018-03-11] MEDS: Multivitamin With Minerals Tab PO SCH (09:07)
[2018-03-12] MEDS: Ammonium Lactate 12% Cream (140 g) TOP SCH (08:27)
[2018-03-12] MEDS: Insulin Lispro (humaLOG) 100 Units/ml Inj SC SCH (08:32)
[2018-03-12] MEDS: Multivitamin With Minerals Tab PO SCH (08:32)
--- NOTE | 2018-03-12 08:51 | PCM.PYCHPN ---
Psychiatric Progress Note - Psychiatric Progress Note Patient seen today, length of contact: Pt evaluated, case discussed w/ team, chart reviewed Patient Chief Complaint: Paranoia Problems Identified/Issues Discussed: No new events. Patient continues to have chronic paranoia w/ poor insight and judgment. He continues to refuse to return to the [facility] due to acute paranoia. He can not explain his current medical conditions and which medications he takes. He believes that he can be discharged from the hospital and that he can find a place on his own, despite his physical disability, lack of access to financial resources and lack of social support. Patient does not have capacity to make medical decisions at this time. MOCA testing - deficits in visuospatial/executive function, memory, language, and attention Medication Change: No Medical Record Reviewed: Yes Consults ordered or reviewed: Medicine consult Mental Status Examination - Cognitive Function Orientation: Person, Place, Situation, Time Memory: Impaired Attention: Poor Concentration: Poor Association: Loose Fund of Knowledge: Poor Decription of patient's judgement and insights: Poor I/J - Mood Mood: Anxious - Affect Affect: Broad - Speech Speech: Appropriate - Formal Thought Process Formal Thought Process: Paranoia Psychotic Thoughts and Behaviors: +Paranoia - Suicidal Ideation Suicidal Ideation: No - Homicidal Ideation Homicidal Ideation: No Goal/Treatment Plan - Goal/Treatment Plan Need for Continued Stay: Remain at risks for inpatient hospitalization, Discharge may exacerbated symptoms Progress Toward Problem(s) and Goals/Treatment Plan: Schizoaffective Disorder -Individual and group therapy -Medicine consult -Continue Zyprexa 20 mg PO HS -Continue Prozac 20 mg PO Daily -Disposition planning- start guardianship process Estimated Date of D/C: 05/03/18
--- NOTE | 2018-03-12 13:04 | CP.PCM.CON ---
History of Present Illness - History of Present Illness History of Present Illness: Podiatry consult note for Dr. Covington, 68 yo male with pmhx of diabetes was seen at bedside for elongated toenails. Patient states his toenails are really long and would like to get them cut today. Patient denies any pain in his feet. Denies numbness or tingling to the feet. States he sees a coagulating drying supervisor regularly, however does not recall the name. Patient denies f/n/v/sob. Pmhx: diabetes and schizophrenia Pshx: denies Social: denies smoking or drinking alcohol Allergies: olive oil Past Patient History - Infectious Disease Hx of Infectious Diseases: None - Past Medical History & Family History Past Medical History?: Yes - Past Social History Smoking Status: Former Smoker Alcohol: None - CARDIAC Hx Hypertension: Yes - NEUROLOGICAL Other/Comment: tremors - ENDOCRINE/METABOLIC Hx Diabetes Mellitus Type 1: Yes - MUSCULOSKELETAL/RHEUMATOLOGICAL Hx Falls: Yes Hx Unsteady Gait: Yes - GASTROINTESTINAL Hx Gastroesophageal Reflux: Yes - PSYCHIATRIC Hx Bipolar Disorder: Yes Hx Depression: Yes Hx Schizophrenia: Yes Hx Substance Use: No - SURGICAL HISTORY Hx Surgeries: Yes Other/Comment: retinal detachment in 1981 - ANESTHESIA Hx Anesthesia: No Meds Allergies/Adverse Reactions: Allergies Allergy/AdvReac Type Severity Reaction Status Date / Time olive oil Allergy Mild Verified 10/26/16 21:22 - Medications Medications: Current Medications Acetaminophen (Tylenol 325mg Tab) 650 mg PO Q4 PRN PRN Reason: Pain, moderate (4-7) Last Admin: 03/11/18 09:52 Dose: 650 mg Al Hydrox/Mg Hydrox/Simethicone (Maalox Plus 30 Ml) 30 ml PO Q4 PRN PRN Reason: Dyspepsia Amlodipine Besylate (Norvasc) 10 mg PO DAILY [facility] Last Admin: 03/12/18 08:29 Dose: 10 mg Bismuth Subsalicylate (Pepto-Bismol) 524 mg PO Q4 PRN PRN Reason: Diarrhea Dextrose (Dextrose 50% Inj) 0 ml IV STAT PRN; Protocol PRN Reason: Hypoglycemia Protocol Dextrose (Glutose 15) 0 gm PO ONCE PRN; Protocol PRN Reason: Hypoglycemia Protocol Docusate Sodium (Colace) 100 mg PO BID [facility] Last Admin: 03/12/18 08:27 Dose: 100 mg Ergocalciferol (Drisdol 50,000 Intl Units Cap) 1 cap PO Q7D [facility] Last Admin: 03/09/18 08:32 Dose: 1 cap Famotidine (Pepcid) 20 mg PO HS [facility] Last Admin: 03/11/18 21:15 Dose: 20 mg Fluoxetine HCl (Prozac) 20 mg PO DAILY [facility] Last Admin: 03/12/18 08:29 Dose: 20 mg Furosemide (Lasix) 40 mg PO BID [facility] Last Admin: 03/12/18 08:30 Dose: 40 mg Gabapentin (Neurontin) 100 mg PO DAILY [facility] Last Admin: 03/12/18 08:29 Dose: 100 mg Glucagon (Glucagen Diagnostic Kit) 0 mg IM STAT PRN; Protocol PRN Reason: Hypoglycemia Protocol Ibuprofen (Motrin Tab) 400 mg PO Q6 PRN PRN Reason: Pain, moderate (4-7) Last Admin: 03/12/18 10:06 Dose: 400 mg Insulin Human Lispro (Humalog) 0 units SC ACB [facility]; Protocol Last Admin: 03/12/18 08:32 Dose: Not Given Lactic Acid (Lac-Hydrin 12% Cream (140 G)) 1 ea TOP DAILY [facility] Last Admin: 03/12/18 08:27 Dose: 1 applic Magnesium Hydroxide (Milk Of Magnesia) 30 ml PO HS PRN PRN Reason: Constipation Metformin HCl (Glucophage) 500 mg PO BIDWM [facility] Last Admin: 03/12/18 08:31 Dose: 500 mg Multivitamins/Minerals (Therapeutic-M Tab) 1 tab PO DAILY [facility] Last Admin: 03/12/18 08:32 Dose: 1 tab Olanzapine (Zyprexa) 20 mg PO HS [facility] Last Admin: 03/11/18 21:14 Dose: 20 mg Sennosides (Senokot Tab) 17.2 mg PO BID [facility] Last Admin: 03/12/18 08:28 Dose: 17.2 mg Thiamine HCl (Vitamin B1 Tab) 100 mg PO DAILY [facility] Last Admin: 03/12/18 08:31 Dose: 100 mg Physical Exam - Constitutional Appears: Well, Non-toxic, No Acute Distress - Head Exam Head Exam: ATRAUMATIC, NORMOCEPHALIC - Extremities Exam Additional comments: Bilateral lower extremity exam: Vascular: DP/PT 2/4 b/l, CFT <3 secs x10, TG warm to warm WNL, no edema or erythema noted Derm: no open lesions, mildly elongated toenails, no clinical signs of infection Neuro: protective sensation intact via ipswich 4/4 b/l Ortho: no pain upon ROM of the foot or ankle joint. - Neurological Exam Neurological exam: Alert, Oriented x3 - Psychiatric Exam Psychiatric exam: Normal Affect, Normal Mood - Skin Skin Exam: Normal Color Results - Vital Signs Recent Vital Signs: Last Vital Signs Temp 98.1 F 03/12/18 06:00 Pulse 96 H 03/12/18 08:29 Resp 18 03/12/18 06:00 BP 119/75 03/12/18 08:30 Pulse Ox 19 L 02/21/18 06:00 - Labs Result Diagrams: 02/18/18 17:40 02/22/18 06:00 Labs: Laboratory Results - last 24 hr 03/11/18 03/12/18 16:20 04:49 POC Glucose (mg/dL) 97 82 Assessment & Plan - Assessment and Plan (Free Text) Assessment: 68 yo male with pmhx of diabetes seen at bedside for elongated toenails x 10 in bilateral feet Plan: Patient seen and evaluated History and plan discussed in detail with the attending, Dr Covington Chart, labs and vitals reviewed; WNL Nails debrided x 10 using sterile nippers No complications Patient tolerated Thank you for the consult Podiatry will sign off; Please reconsult podiatry if needed.
--- NOTE | 2018-03-12 14:55 | CP.PCM.CON ---
History of Present Illness - History of Present Illness History of Present Illness: Neurology Consultation Note: Mr. Thao is a 68-year-old man with a past medical history of schizoaffective disorder, depression, agitation, who is currently a resident at [facility], but has had multiple previous psychiatric admissions, including [facility] in the early . Neurology was consulted for evaluation of dementia. When I spoke with the patient today, he was alert, oriented and knew his situation. He told me where he is located, the date and provided a good history. Review of Systems - Constitutional Constitutional: absent: As Per HPI, Anorexia, Chills, Daytime Sleepiness, Excessive Sweating, Fatigue, Fever, Frequent Falls, Headache, Increased Appetite, Lethargy, Malaise, Night Sweats, Snoring, Sleep Apnea, Weight Gain, Weight Loss, Weakness, Other - EENT Eyes: Other Visual Disturbances Ears: absent: As Per HPI, Decreased Hearing, Ear Discharge, Ear Pain, Tinnitus, Abnormal Hearing, Disequilibrium, Dizziness, Other Nose/Mouth/Throat: absent: As Per HPI, Epistaxis, Nasal Congestion, Nasal Discharge, Nasal Obstruction, Nasal Trauma, Nose Pain, Post Nasal Drip, Sinus Pain, Sinus Pressure, Bleeding Gums, Change in Voice, Dental Pain, Dry Mouth, Dysphagia, Halitosis, Hoarsness, Lip Swelling, Mouth Lesions, Mouth Pain, Odynophagia, Sore Throat, Throat Swelling, Tongue Swelling, Facial Pain, Neck Pain, Neck Mass, Other - Cardiovascular Cardiovascular: absent: As Per HPI, Acrocyanosis, Chest Pain, Chest Pain at Rest, Chest Pain with Activity, Claudication, Diaphoresis, Dyspnea, Dyspnea on Exertion, Edema, Irregular Heart Rhythm, Pain Radiating to Arm/Neck/Jaw, Leg Edema, Leg Ulcers, Lightheadedness, Orthopnea, Palpitations, Paroxysmal Nocturnal Dyspnea, Pedal Edema, Radiating Pain, Rapid Heart Rate, Slow Heart Rate, Syncope, Other - Respiratory Respiratory: absent: As Per HPI, Cough, Dyspnea, Hemoptysis, Dyspnea on Exertion, Wheezing, Snoring, Stridor, Pain on Inspiration, Chest Congestion, Excessive Mucous Production, Change in Mucous Color, Pain with Coughing, Other - Gastrointestinal Gastrointestinal: absent: As Per HPI, Abdominal Pain, Belching, Bloating, Change in Bowel Habits, Change in Stool Character, Coffee Ground Emesis, Constipation, Cramping, Diarrhea, Dyspepsia, Dysphagia, Early Satiety, Excessive Flatus, Fecal Incontinence, Heartburn, Hematemesis, Hematochezia, Loose Stools, Melena, Nausea, Odynophagia, Temesmus, Vomiting, Other - Genitourinary Genitourinary: absent: As Per HPI, Change in Urinary Stream, Difficulty Urinating, Dysuria, Flank Pain, Hematuria, Pyuria, Nocturia, Urinary Incontinence, Urinary Frequency, Urinary Hesitance, Urinary Urgency, Voiding Freq/Small Amts, Freq UTI, Hx Renal/Bladder Calculi, Hx /Renal Surgery, Bladder Distension, Other - Musculoskeletal Musculoskeletal: Arthralgias, Myalgias, Stiffness - Integumentary Integumentary: absent: As Per HPI, Acne, Alopecia, Bleeding Lesions, Change in Hair, Change in Nails, Change in Pigmentation, Changing Lesions, Dry Skin, Erythema, Furuncle, Hirsutism, Lesions, New Lesions, Non-Healing Lesions, Photosensitivity, Pruritus, Rash, Skin Pain, Skin Ulcer, Sores, Striae, Swelling, Unusual Bruising, Wounds, Jaundice, Other - Neurological Neurological: As Per HPI - Psychiatric Psychiatric: As Per HPI - Endocrine Endocrine: absent: As Per HPI, Change in Body Appearance, Change in Libido, Cold Intolorance, Deepening of Voice, Excessive Sweating, Fatigue, Flushing, Heat Intolorance, Increase in Ring/Shoe/Hat Size, Palpitations, Polydipsia, Polyphagia, Polyuria, Other - Hematologic/Lymphatic Hematologic: absent: As Per HPI, Easy Bleeding, Easy Bruising, Lymphadenopathy, Other Past Patient History - Infectious Disease Hx of Infectious Diseases: None - Past Medical History & Family History Past Medical History?: Yes - Past Social History Smoking Status: Former Smoker Alcohol: None - CARDIAC Hx Hypertension: Yes - NEUROLOGICAL Other/Comment: tremors - ENDOCRINE/METABOLIC Hx Diabetes Mellitus Type 1: Yes - MUSCULOSKELETAL/RHEUMATOLOGICAL Hx Falls: Yes Hx Unsteady Gait: Yes - GASTROINTESTINAL Hx Gastroesophageal Reflux: Yes - PSYCHIATRIC Hx Bipolar Disorder: Yes Hx Depression: Yes Hx Schizophrenia: Yes Hx Substance Use: No - SURGICAL HISTORY Hx Surgeries: Yes Other/Comment: retinal detachment in 1981 - ANESTHESIA Hx Anesthesia: No Meds Allergies/Adverse Reactions: Allergies Allergy/AdvReac Type Severity Reaction Status Date / Time olive oil Allergy Mild Verified 10/26/16 21:22 - Medications Medications: Current Medications Acetaminophen (Tylenol 325mg Tab) 650 mg PO Q4 PRN PRN Reason: Pain, moderate (4-7) Last Admin: 03/11/18 09:52 Dose: 650 mg Al Hydrox/Mg Hydrox/Simethicone (Maalox Plus 30 Ml) 30 ml PO Q4 PRN PRN Reason: Dyspepsia Amlodipine Besylate (Norvasc) 10 mg PO DAILY [facility] Last Admin: 03/12/18 08:29 Dose: 10 mg Bismuth Subsalicylate (Pepto-Bismol) 524 mg PO Q4 PRN PRN Reason: Diarrhea Dextrose (Dextrose 50% Inj) 0 ml IV STAT PRN; Protocol PRN Reason: Hypoglycemia Protocol Dextrose (Glutose 15) 0 gm PO ONCE PRN; Protocol PRN Reason: Hypoglycemia Protocol Docusate Sodium (Colace) 100 mg PO BID [facility] Last Admin: 03/12/18 08:27 Dose: 100 mg Ergocalciferol (Drisdol 50,000 Intl Units Cap) 1 cap PO Q7D [facility] Last Admin: 03/09/18 08:32 Dose: 1 cap Famotidine (Pepcid) 20 mg PO HS [facility] Last Admin: 03/11/18 21:15 Dose: 20 mg Fluoxetine HCl (Prozac) 20 mg PO DAILY [facility] Last Admin: 03/12/18 08:29 Dose: 20 mg Furosemide (Lasix) 40 mg PO BID [facility] Last Admin: 03/12/18 08:30 Dose: 40 mg Gabapentin (Neurontin) 100 mg PO DAILY [facility] Last Admin: 03/12/18 08:29 Dose: 100 mg Glucagon (Glucagen Diagnostic Kit) 0 mg IM STAT PRN; Protocol PRN Reason: Hypoglycemia Protocol Ibuprofen (Motrin Tab) 400 mg PO Q6 PRN PRN Reason: Pain, moderate (4-7) Last Admin: 03/12/18 10:06 Dose: 400 mg Insulin Human Lispro (Humalog) 0 units SC ACB [facility]; Protocol Last Admin: 03/12/18 08:32 Dose: Not Given Lactic Acid (Lac-Hydrin 12% Cream (140 G)) 1 ea TOP DAILY [facility] Last Admin: 03/12/18 08:27 Dose: 1 applic Magnesium Hydroxide (Milk Of Magnesia) 30 ml PO HS PRN PRN Reason: Constipation Metformin HCl (Glucophage) 500 mg PO BIDWM [facility] Last Admin: 03/12/18 08:31 Dose: 500 mg Multivitamins/Minerals (Therapeutic-M Tab) 1 tab PO DAILY [facility] Last Admin: 03/12/18 08:32 Dose: 1 tab Olanzapine (Zyprexa) 20 mg PO HS [facility] Last Admin: 03/11/18 21:14 Dose: 20 mg Sennosides (Senokot Tab) 17.2 mg PO BID [facility] Last Admin: 03/12/18 08:28 Dose: 17.2 mg Thiamine HCl (Vitamin B1 Tab) 100 mg PO DAILY [facility] Last Admin: 03/12/18 08:31 Dose: 100 mg Physical Exam - Constitutional Appears: Well - Head Exam Head Exam: ATRAUMATIC, NORMAL INSPECTION, NORMOCEPHALIC - Eye Exam Additional comments: left eye retinal detachment. Only has vision in right eye - ENT Exam ENT Exam: Mucous Membranes Moist, Normal Exam - Neck Exam Neck exam: Positive for: Normal Inspection - Respiratory Exam Respiratory Exam: Clear to Auscultation Bilateral, NORMAL BREATHING PATTERN - Cardiovascular Exam Cardiovascular Exam: REGULAR RHYTHM - GI/Abdominal Exam GI & Abdominal Exam: Normal Bowel Sounds, Soft. absent: Tenderness - Rectal Exam Rectal Exam: Deferred - Neurological Exam Neurological exam: Abnormal Gait, Alert, CN II-XII Intact, Oriented x3, Reflexes Normal Additional comments: Good memory, recall, attention, fund of knowledge. Recalls 2/3 objects, spells WORLD frontward, not backward, able to complete simple subtraction task. - Psychiatric Exam Psychiatric exam: Normal Affect, Normal Mood Results - Vital Signs Recent Vital Signs: Last Vital Signs Temp 98.1 F 03/12/18 06:00 Pulse 96 H 03/12/18 08:29 Resp 18 03/12/18 06:00 BP 119/75 03/12/18 08:30 Pulse Ox 19 L 02/21/18 06:00 - Labs Result Diagrams: 02/18/18 17:40 02/22/18 06:00 Labs: Laboratory Results - last 24 hr 03/11/18 03/12/18 16:20 04:49 POC Glucose (mg/dL) 97 82 Assessment & Plan (1) Schizoaffective disorder Assessment and Plan: He has some mild cognitive deficits that may be due to underlying psychiatric condition and years of Dopamine antagonists. However, he does not appear to have dementia based on my examination. A more thorough neuro-cognitive assessment may be performed to specify more explicitly the degree of mental disability. Status: Acute
--- NOTE | 2018-03-13 08:04 | PCM.PYCHPN ---
Psychiatric Progress Note - Psychiatric Progress Note Patient seen today, length of contact: Pt evaluated, case discussed w/ team, chart reviewed Patient Chief Complaint: Paranoia Problems Identified/Issues Discussed: No new events overnight. Patient continues to have poor insight and judgment. He continues to refuse to return to the skilled nursing although he does not express any acute paranoid ideations. He can not explain his current medical conditions and which medications he takes. He believes that he can be discharged from the hospital and that he can find a place on his own, despite his physical disability, lack of access to financial resources and lack of social support. Patient does not have capacity to make medical decisions at this time. Medication Change: No Medical Record Reviewed: Yes Consults ordered or reviewed: Medicine consult, Neurology consult, Podiatry consult Mental Status Examination - Cognitive Function Orientation: Person, Place, Situation, Time Memory: Intact Attention: Poor Concentration: Poor Association: WNL Fund of Knowledge: WNL Decription of patient's judgement and insights: Poor I/J - Mood Mood: Neutral - Affect Affect: Broad - Speech Speech: Appropriate - Formal Thought Process Formal Thought Process: Paranoia Psychotic Thoughts and Behaviors: +Chronic Paranoia - Suicidal Ideation Suicidal Ideation: No - Homicidal Ideation Homicidal Ideation: No Goal/Treatment Plan - Goal/Treatment Plan Need for Continued Stay: Remain at risks for inpatient hospitalization, Discharge may exacerbated symptoms Progress Toward Problem(s) and Goals/Treatment Plan: Schizoaffective Disorder -Individual and group therapy -Medicine consult, Neurology consult, Podiatry consult -Continue Zyprexa 20 mg PO HS -Continue Prozac 20 mg PO Daily -Disposition planning- start guardianship process Estimated Date of D/C: 05/03/18
[2018-03-13] MEDS: Insulin Lispro (humaLOG) 100 Units/ml Inj SC SCH (09:01)
[2018-03-13] MEDS: Multivitamin With Minerals Tab PO SCH (09:01)
[2018-03-13] MEDS: Ammonium Lactate 12% Cream (140 g) TOP SCH (09:01)
[2018-03-14] MEDS: Multivitamin With Minerals Tab PO SCH (08:56)
[2018-03-14] MEDS: Ammonium Lactate 12% Cream (140 g) TOP SCH (08:57)
[2018-03-14] MEDS: Insulin Lispro (humaLOG) 100 Units/ml Inj SC SCH (09:00)
--- NOTE | 2018-03-14 09:32 | PCM.PYCHPN ---
Psychiatric Progress Note - Psychiatric Progress Note Patient seen today, length of contact: Pt evaluated, case discussed w/ team, chart reviewed Patient Chief Complaint: Refusal to return to custodial Problems Identified/Issues Discussed: No new events overnight. Patient continues to have poor insight and judgment. He continues to refuse to return to the custodial although he does not express any acute paranoid ideations. He can not explain his current medical conditions and which medications he takes. He believes that he can be discharged from the hospital and that he can find a place on his own, despite his physical disability, lack of access to financial resources and lack of social support. Patient does not have capacity to make medical decisions at this time. Medication Change: No Medical Record Reviewed: Yes Consults ordered or reviewed: Medicine consult, Neurology consult, Podiatry consult Mental Status Examination - Cognitive Function Orientation: Person, Place, Situation, Time Memory: Intact Attention: Poor Concentration: Poor Association: WNL Fund of Knowledge: WNL Decription of patient's judgement and insights: Poor I/J - Mood Mood: Neutral - Affect Affect: Broad - Speech Speech: Appropriate - Formal Thought Process Formal Thought Process: Loosening of associations Psychotic Thoughts and Behaviors: Denies acute paranoia, likely has chronic residual paranoia - Suicidal Ideation Suicidal Ideation: No - Homicidal Ideation Homicidal Ideation: No Goal/Treatment Plan - Goal/Treatment Plan Need for Continued Stay: Remain at risks for inpatient hospitalization, Discharge may exacerbated symptoms Progress Toward Problem(s) and Goals/Treatment Plan: Schizoaffective Disorder -Individual and group therapy -Medicine consult, Neurology consult, Podiatry consult -Continue Zyprexa 20 mg PO HS -Continue Prozac 20 mg PO Daily -Disposition planning- start guardianship process Estimated Date of D/C: 05/03/18
--- NOTE | 2018-03-15 06:58 | PCM.BM ---
Treatment Plan Problems - Problems identified on initial assessmt Delusions Date Initiated: 02/19/18 Time Initiated: 00:36 Assessment reference: NA Status: Active Medication nonadherence Date Initiated: 02/19/18 Time Initiated: 00:37 Assessment reference: NA Status: Active Treatment assets and liabiliti Patient Assests: cooperative, negotiates basic needs Patient Liabilities: poor support system, medical problems - Milieu Protocol Maintain good personal hygiene: daily Encourage regular showers, daily Remind patient to perform daily oral care, daily Assist patient to perform ADL's Conduct patient checks and document Observation sheet: Q15 minutes Maintain personal safety: every shift Educate patient to report safety concerns to staff, every shift Monitor environment for contraband/sharps Medication safety: Monitor for expected outcome, potential side effects: every shift, Assess barriers to learning: every shift, Assess readiness for medication education: every shift Milieu Narrative: Schizoaffective Disorder -Individual and group therapy -Medicine consult, Neurology consult, Podiatry consult -Continue Zyprexa 20 mg PO HS -Continue Prozac 20 mg PO Daily -Disposition planning- start guardianship process Family Contact Family involvement: Famliy/SO not involved Family contact: Telephone contact initiated by staff Family contact name: Zhane - Friend Family contacted how many times per week?: 2 Family contact comment: Running Instructor spoke with pt's support and former homemaker, Zhane [phone], for collateral and provide Zhane with visiting hours. Zhane reported that she is pt's only support and he does not have friends or family. She has known pt for four years and was his homemaker for 2 of them. Zhane reported that last time she visited pt at [place] pt had packed all his belongings and wanted to leave the facility. - Goals for Treatment Patient goals for treatment: Pt reported he wants to be referred to a correction and not return to [facility]. Discharge/Continuing Care - Education Needs Education Needs: Patient Medication, Patient Diagnosis/Disease Process, Patient Coping Skills, Patient Placement options, Patient Community resources, Patient Aftercare Safety Plan - Discharge Discharge Criteria: Tolerates medication w/o severe side effects, Free of paranoid thoughts, Free of agitation, Normal sleep pattern, Ability to care for self, Reduction of target symptoms Discharge to:: Assisted Facility - Treatment Team Participation Patient/Family/SO Statement: Schizoaffective Disorder -Individual and group therapy -Medicine consult, Neurology consult, Podiatry consult -Continue Zyprexa 20 mg PO HS -Continue Prozac 20 mg PO Daily -Disposition planning- start guardianship process Discussed with Family/SO: Yes Was Patient/Family/SO present at Treatment Team Meeting: Yes Treatment Plan Review - Problem Delusions Time Initiated: 00:36 Medication nonadherence Time Initiated: 00:37 - Discharge / Continuing Care Discharge to:: Home, [facility] (Pt still not aware of his medical conditions or the medication that he takes. Pt was able to list that he takes Zyprexa for his Schizophrenia. Discharge planning and testing was done with the pt who expressed that he would get a taxi and asked the wagon driver salesperson to find him an apartment. Pt still refusing to return to [facility] or be admitted to another senior living at this time. Guardianship process was again discussed with pt and he agreed that he needs someone to help him make decisions.)
[2018-03-15] MEDS: Insulin Lispro (humaLOG) 100 Units/ml Inj SC SCH (07:30)
[2018-03-15] MEDS: Ammonium Lactate 12% Cream (140 g) TOP SCH (09:06)
[2018-03-15] MEDS: Multivitamin With Minerals Tab PO SCH (09:08)
--- NOTE | 2018-03-15 09:52 | PCM.PYCHPN ---
Psychiatric Progress Note - Psychiatric Progress Note Patient seen today, length of contact: Pt evaluated, case discussed w/ team, chart reviewed Patient Chief Complaint: Refusal to return to half-way Problems Identified/Issues Discussed: Patient continues to have poor insight and judgment. He continues to refuse to return to the half-way although he does not express any acute paranoid ideations. He believes he is too high functioning to return to the half-way and believes he can live in the community without assistance. He can not explain his current medical conditions or which medications he takes. He believes that he can be discharged from the hospital and that he can find a place on his own, despite his physical disability, lack of access to financial resources and lack of social support. When asked what his plan was, he stated that he will go to the bank and then drive around in a taxi until the unknown power screwdriver operator can find him an apartment. Patient does not have capacity to make medical decisions at this time. Medication Change: No Medical Record Reviewed: Yes Consults ordered or reviewed: Medicine consult, Neurology consult, Podiatry consult Mental Status Examination - Cognitive Function Orientation: Person, Place, Situation, Time Memory: Intact Attention: Poor Concentration: Poor Association: WNL Fund of Knowledge: WNL Decription of patient's judgement and insights: Poor I/J - Mood Mood: Neutral - Affect Affect: Broad - Speech Speech: Appropriate - Formal Thought Process Formal Thought Process: Loosening of associations Psychotic Thoughts and Behaviors: Denies acute paranoia, likely has chronic residual paranoia - Suicidal Ideation Suicidal Ideation: No - Homicidal Ideation Homicidal Ideation: No Goal/Treatment Plan - Goal/Treatment Plan Need for Continued Stay: Remain at risks for inpatient hospitalization, Discharge may exacerbated symptoms Progress Toward Problem(s) and Goals/Treatment Plan: Schizoaffective Disorder -Individual and group therapy -Medicine consult, Neurology consult, Podiatry consult -Continue Zyprexa 20 mg PO HS -Continue Prozac 20 mg PO Daily -Disposition planning- start guardianship process Estimated Date of D/C: 05/03/18
[2018-03-15] MEDS: guaiFENesin DM 200 mg-20 mg/10 ml UD PO PRN ×2 (12:59→19:09)
[2018-03-16] MEDS: guaiFENesin DM 200 mg-20 mg/10 ml UD PO PRN ×3 (03:06→15:02)
[2018-03-16] MEDS: Ergocalciferol 50,000 Intl Units Cap PO SCH (08:42)
[2018-03-16] MEDS: Ammonium Lactate 12% Cream (140 g) TOP SCH (08:43)
[2018-03-16] MEDS: Insulin Lispro (humaLOG) 100 Units/ml Inj SC SCH (08:44)
[2018-03-16] MEDS: Multivitamin With Minerals Tab PO SCH (08:45)
[2018-03-16] MEDS ORDERED: Pneumococcal 23-Valent Vaccine IM ONE (10:23)
[2018-03-16] MEDS ORDERED: Influenza Vaccine (5 YR UP)/PF 60 MCG/0.5 ML SYR IM ONE (10:23)
--- NOTE | 2018-03-16 13:27 | PCM.PYCHPN ---
Psychiatric Progress Note - Psychiatric Progress Note Patient seen today, length of contact: Pt evaluated, case discussed w/ team, chart reviewed Patient Chief Complaint: I feel alright Problems Identified/Issues Discussed: pt evaluated in day room, cooperative reported mood fine , concrete thought proces, no reported side effects of medications, denied command hallucinations, denied suicidal or homicidal ideation DSM 5 Symptoms Update: schizoaffective disorder Medication Change: No Medical Record Reviewed: Yes Mental Status Examination - Cognitive Function Orientation: Person, Place, Situation, Time Memory: Intact Attention: Poor Concentration: Poor Association: WNL Fund of Knowledge: WNL - Mood Mood: Neutral - Affect Affect: Broad - Speech Speech: Appropriate - Formal Thought Process Formal Thought Process: Loosening of associations - Suicidal Ideation Suicidal Ideation: No - Homicidal Ideation Homicidal Ideation: No Goal/Treatment Plan - Goal/Treatment Plan Need for Continued Stay: Remain at risks for inpatient hospitalization, Discharge may exacerbated symptoms Progress Toward Problem(s) and Goals/Treatment Plan: continue current management Estimated Date of D/C: 05/03/18
[2018-03-17] MEDS: Multivitamin With Minerals Tab PO SCH (08:23)
[2018-03-17] MEDS: Insulin Lispro (humaLOG) 100 Units/ml Inj SC SCH (08:26)
[2018-03-17] MEDS: Ammonium Lactate 12% Cream (140 g) TOP SCH (08:28)
--- NOTE | 2018-03-17 14:05 | PCM.PYCHPN ---
Psychiatric Progress Note - Psychiatric Progress Note Patient seen today, length of contact: Pt evaluated, case discussed w/ team, chart reviewed Patient Chief Complaint: I feel fine Problems Identified/Issues Discussed: pt evaluated in his room, isolative guarded , reported mood fine , concrete thought process, no reported side effects of medications, denied command hallucinations, denied suicidal or homicidal ideation DSM 5 Symptoms Update: schizoaffective disorder Medication Change: No Medical Record Reviewed: Yes Mental Status Examination - Cognitive Function Orientation: Person, Place, Situation, Time Memory: Intact Attention: Poor Concentration: Poor Association: WNL Fund of Knowledge: WNL - Mood Mood: Neutral - Affect Affect: Broad - Speech Speech: Appropriate - Formal Thought Process Formal Thought Process: Loosening of associations - Suicidal Ideation Suicidal Ideation: No - Homicidal Ideation Homicidal Ideation: No Goal/Treatment Plan - Goal/Treatment Plan Need for Continued Stay: Remain at risks for inpatient hospitalization, Discharge may exacerbated symptoms Progress Toward Problem(s) and Goals/Treatment Plan: continue current management cbt group and supportive therapy Estimated Date of D/C: 05/03/18
[2018-03-17] MEDS: guaiFENesin DM 200 mg-20 mg/10 ml UD PO PRN (21:01)
--- NOTE | 2018-03-18 08:44 | PCM.PYCHPN ---
Psychiatric Progress Note - Psychiatric Progress Note Patient seen today, length of contact: Pt evaluated, case discussed w/ team, chart reviewed Patient Chief Complaint: Refusal to return to halfway Problems Identified/Issues Discussed: No new events over the weekend. Patient continues to have poor insight and judgment. He continues to refuse to return to the halfway although he does not express any acute paranoid ideations. He believes he is too high functioning to return to the halfway and believes he can live in the community without assistance. He can not explain his current medical conditions or which medications he takes. He believes that he can be discharged from the hospital and that he can find a place on his own, despite his physical disability, lack of access to financial resources and lack of social support. When asked what his plan was, he stated that he will go to the bank and then drive around in a taxi until the unknown form setter/driver can find him an apartment. Patient does not have capacity to make medical decisions at this time. Medication Change: No Medical Record Reviewed: Yes Consults ordered or reviewed: Medicine consult, Neurology consult, Podiatry consult Mental Status Examination - Cognitive Function Orientation: Person, Place, Situation, Time Memory: Impaired Attention: Poor Concentration: Poor Association: WNL Fund of Knowledge: WNL Decription of patient's judgement and insights: Poor I/J - Mood Mood: Neutral - Affect Affect: Broad - Speech Speech: Appropriate - Formal Thought Process Formal Thought Process: Loosening of associations Psychotic Thoughts and Behaviors: Denies acute paranoia; patient likely has chronic residual paranoia - Suicidal Ideation Suicidal Ideation: No - Homicidal Ideation Homicidal Ideation: No Goal/Treatment Plan - Goal/Treatment Plan Need for Continued Stay: Discharge may exacerbated symptoms, Severe functional impairment Progress Toward Problem(s) and Goals/Treatment Plan: Schizoaffective Disorder -Individual and group therapy -Medicine consult, Neurology consult, Podiatry consult -Continue Zyprexa 20 mg PO HS -Continue Prozac 20 mg PO Daily -Disposition planning- start guardianship process Estimated Date of D/C: 05/03/18
[2018-03-18] MEDS: Multivitamin With Minerals Tab PO SCH (09:57)
[2018-03-18] MEDS: Insulin Lispro (humaLOG) 100 Units/ml Inj SC SCH (09:58)
[2018-03-18] MEDS: Ammonium Lactate 12% Cream (140 g) TOP SCH (09:58)
[2018-03-18] MEDS: guaiFENesin DM 200 mg-20 mg/10 ml UD PO PRN ×2 (09:59→17:36)
[2018-03-19] MEDS: guaiFENesin DM 200 mg-20 mg/10 ml UD PO PRN ×2 (08:12→16:34)
[2018-03-19] MEDS: Multivitamin With Minerals Tab PO SCH (08:13)
--- NOTE | 2018-03-19 08:19 | PCM.PYCHPN ---
Psychiatric Progress Note - Psychiatric Progress Note Patient seen today, length of contact: Pt evaluated, case discussed w/ team, chart reviewed Patient Chief Complaint: Refusal to return to custodial Problems Identified/Issues Discussed: No new events. Patient continues to have poor insight and judgment. He continues to refuse to return to the custodial although he does not express any acute paranoid ideations. He believes he is too high functioning to return to the custodial and believes he can live in the community without assistance. He can not explain his current medical conditions or which medications he takes. He believes that he can be discharged from the hospital and that he can find a place on his own, despite his physical disability, lack of access to financial resources and lack of social support. When asked what his plan was, he stated that he will go to the bank and then drive around in a taxi until the unknown assembly line driver can find him an apartment. Patient does not have capacity to make medical decisions at this time. Medication Change: No Medical Record Reviewed: Yes Consults ordered or reviewed: Medicine consult, Neurology consult, Podiatry consult Mental Status Examination - Cognitive Function Orientation: Person, Place, Situation, Time Memory: Impaired Attention: Poor Concentration: Poor Association: WNL Fund of Knowledge: WNL Decription of patient's judgement and insights: Poor I/J - Mood Mood: Neutral - Affect Affect: Broad - Speech Speech: Appropriate - Formal Thought Process Formal Thought Process: Loosening of associations Psychotic Thoughts and Behaviors: Denies acute paranoia; patient likely has chronic residual paranoia - Suicidal Ideation Suicidal Ideation: No - Homicidal Ideation Homicidal Ideation: No Goal/Treatment Plan - Goal/Treatment Plan Need for Continued Stay: Discharge may exacerbated symptoms, Severe functional impairment Progress Toward Problem(s) and Goals/Treatment Plan: Schizoaffective Disorder -Individual and group therapy -Medicine consult, Neurology consult, Podiatry consult -Continue Zyprexa 20 mg PO HS -Continue Prozac 20 mg PO Daily -Disposition planning- start guardianship process Estimated Date of D/C: 05/03/18
[2018-03-19] MEDS: Ammonium Lactate 12% Cream (140 g) TOP SCH (08:26)
[2018-03-19] MEDS: Insulin Lispro (humaLOG) 100 Units/ml Inj SC SCH (08:26)
[2018-03-20] MEDS: Insulin Lispro (humaLOG) 100 Units/ml Inj SC SCH (08:32)
[2018-03-20] MEDS: Ammonium Lactate 12% Cream (140 g) TOP SCH (08:39)
[2018-03-20] MEDS: guaiFENesin DM 200 mg-20 mg/10 ml UD PO PRN ×2 (08:40→17:36)
--- NOTE | 2018-03-20 08:40 | PCM.PYCHPN ---
Psychiatric Progress Note - Psychiatric Progress Note Patient seen today, length of contact: Pt evaluated, case discussed w/ team, chart reviewed Patient Chief Complaint: Inability to care for self Problems Identified/Issues Discussed: No new events. Patient continues to have poor insight and judgment. He continues to refuse to return to the long term although he does not express any acute paranoid ideations. He believes he is too high functioning to return to the long term and believes he can live in the community without assistance. He can not explain his current medical conditions or which medications he takes. He believes that he can be discharged from the hospital and that he can find a place on his own, despite his physical disability, lack of access to financial resources and lack of social support. When asked what his plan was, he stated that he will go to the bank and then drive around in a taxi until the unknown services delivery driver can find him an apartment. Patient does not have capacity to make medical decisions at this time. Medication Change: No Medical Record Reviewed: Yes Consults ordered or reviewed: Medicine consult, Neurology consult, Podiatry consult Mental Status Examination - Cognitive Function Orientation: Person, Place, Situation, Time Memory: Impaired Attention: Poor Concentration: Poor Association: WNL Fund of Knowledge: WN Decription of patient's judgement and insights: Poor I/J - Mood Mood: Neutral - Affect Affect: Broad - Speech Speech: Appropriate - Formal Thought Process Formal Thought Process: Loosening of associations Psychotic Thoughts and Behaviors: Denies acute paranoia; patient likely has chronic residual paranoia - Suicidal Ideation Suicidal Ideation: No - Homicidal Ideation Homicidal Ideation: No Goal/Treatment Plan - Goal/Treatment Plan Need for Continued Stay: Severe functional impairment Progress Toward Problem(s) and Goals/Treatment Plan: Schizoaffective Disorder -Individual and group therapy -Medicine consult, Neurology consult, Podiatry consult -Continue Zyprexa 20 mg PO HS -Continue Prozac 20 mg PO Daily -Disposition planning- start guardianship process Estimated Date of D/C: 05/03/18
[2018-03-20] MEDS: Multivitamin With Minerals Tab PO SCH (08:42)
[2018-03-21] MEDS: Insulin Lispro (humaLOG) 100 Units/ml Inj SC SCH (08:10)
[2018-03-21] MEDS: Multivitamin With Minerals Tab PO SCH (08:16)
--- NOTE | 2018-03-21 08:26 | PCM.PYCHPN ---
Psychiatric Progress Note - Psychiatric Progress Note Patient seen today, length of contact: Pt evaluated, case discussed w/ team, chart reviewed Patient Chief Complaint: Inability to care for self Problems Identified/Issues Discussed: No new events overnight. Patient continues to have poor insight and judgment. He continues to refuse to return to the [facility]p although he does not express any acute paranoid ideations. He believes he is too high functioning to return to the usp and believes he can live in the community without assistance. He can not explain his current medical conditions or which medications he takes. He believes that he can be discharged from the hospital and that he can find a place on his own, despite his physical disability, lack of access to financial resources and lack of social support. When asked what his plan was, he stated that he will go to the bank and then drive around in a taxi until the unknown bookmobile driver can find him an apartment. Patient does not have capacity to make medical decisions at this time. Medication Change: No Medical Record Reviewed: Yes Consults ordered or reviewed: Medicine consult, Neurology consult, Podiatry consult Mental Status Examination - Cognitive Function Orientation: Person, Place, Situation, Time Memory: Impaired Attention: Poor Concentration: Poor Association: WNL Fund of Knowledge: WNL Decription of patient's judgement and insights: Poor I/J - Mood Mood: Neutral - Affect Affect: Broad - Speech Speech: Appropriate - Formal Thought Process Formal Thought Process: Loosening of associations Psychotic Thoughts and Behaviors: Denies acute paranoia; patient likely has chronic residual paranoia - Suicidal Ideation Suicidal Ideation: No - Homicidal Ideation Homicidal Ideation: No Goal/Treatment Plan - Goal/Treatment Plan Need for Continued Stay: Severe functional impairment Progress Toward Problem(s) and Goals/Treatment Plan: Schizoaffective Disorder -Individual and group therapy -Medicine consult, Neurology consult, Podiatry consult -Continue Zyprexa 20 mg PO HS -Continue Prozac 20 mg PO Daily -Disposition planning- start guardianship process Estimated Date of D/C: 05/03/18
[2018-03-21] MEDS: Ammonium Lactate 12% Cream (140 g) TOP SCH (10:09)
--- NOTE | 2018-03-22 07:34 | PCM.PYCHPN ---
Psychiatric Progress Note - Psychiatric Progress Note Patient seen today, length of contact: Pt evaluated, case discussed w/ team, chart reviewed Patient Chief Complaint: Inability to care for self Problems Identified/Issues Discussed: No new events. Patient continues to have poor insight and judgment. He continues to refuse to return to the alf although he does not express any acute paranoid ideations. He believes he is too high functioning to return to the alf and believes he can live in the community without assistance. He can not explain his current medical conditions or which medications he takes. He believes that he can be discharged from the hospital and that he can find a place on his own, despite his physical disability, lack of access to financial resources and lack of social support. When asked what his plan was, he stated that he will go to the bank and then drive around in a taxi until the unknown dedicated driver can find him an apartment. Patient does not have capacity to make medical decisions at this time. Medication Change: No Medical Record Reviewed: Yes Consults ordered or reviewed: Medicine consult, Neurology consult, Podiatry consult Mental Status Examination - Cognitive Function Orientation: Person, Place, Situation, Time Memory: Impaired Attention: Poor Concentration: Poor Association: WNL Fund of Knowledge: WN Decription of patient's judgement and insights: Poor I/J - Mood Mood: Neutral - Affect Affect: Broad - Speech Speech: Appropriate - Formal Thought Process Formal Thought Process: Loosening of associations Psychotic Thoughts and Behaviors: Denies acute paranoia; patient likely has chronic residual paranoia - Suicidal Ideation Suicidal Ideation: No - Homicidal Ideation Homicidal Ideation: No Goal/Treatment Plan - Goal/Treatment Plan Need for Continued Stay: Severe functional impairment Progress Toward Problem(s) and Goals/Treatment Plan: Schizoaffective Disorder -Individual and group therapy -Medicine consult, Neurology consult, Podiatry consult -Continue Zyprexa 20 mg PO HS -Continue Prozac 20 mg PO Daily -Disposition planning- start guardianship process Estimated Date of D/C: 05/03/18
[2018-03-22] MEDS: Insulin Lispro (humaLOG) 100 Units/ml Inj SC SCH (08:53)
[2018-03-22] MEDS: Ammonium Lactate 12% Cream (140 g) TOP SCH (08:53)
--- NOTE | 2018-03-22 08:54 | PCM.BM ---
Treatment Plan Problems - Problems identified on initial assessmt Delusions Date Initiated: 02/19/18 Time Initiated: 00:36 Assessment reference: NA Status: Active Medication nonadherence Date Initiated: 02/19/18 Time Initiated: 00:37 Assessment reference: NA Status: Active Treatment assets and liabiliti Patient Assests: cooperative, negotiates basic needs Patient Liabilities: poor support system, medical problems - Milieu Protocol Maintain good personal hygiene: daily Encourage regular showers, daily Remind patient to perform daily oral care, daily Assist patient to perform ADL's Conduct patient checks and document Observation sheet: Q15 minutes Maintain personal safety: every shift Educate patient to report safety concerns to staff, every shift Monitor environment for contraband/sharps Medication safety: Monitor for expected outcome, potential side effects: every shift, Assess barriers to learning: every shift, Assess readiness for medication education: every shift Milieu Narrative: Schizoaffective Disorder -Individual and group therapy -Medicine consult, Neurology consult, Podiatry consult -Continue Zyprexa 20 mg PO HS -Continue Prozac 20 mg PO Daily -Disposition planning- start guardianship process Family Contact Family involvement: Sinan/CYNTHIA not involved Family contact: Telephone contact initiated by staff Family contact name: Zhane - Friend Family contacted how many times per week?: 2 Family contact comment: Crystal Growing Technician spoke with pt's support and former homemaker, Zhane [phone], for collateral and provide Zhane with visiting hours. Zhane reported that she is pt's only support and he does not have friends or family. She has known pt for four years and was his homemaker for 2 of them. Zhane reported that [place] time she visited [place] pt had packed all his belongings and wanted to leave the facility. - Goals for Treatment Patient goals for treatment: Pt reported he wants to be referred to a [place] [facility] care facility and not return to [facility]. Discharge/Continuing Care - Education Needs Education Needs: Patient Medication, Patient Diagnosis/Disease Process, Patient Coping Skills, Patient Placement options, Patient Community resources, Patient Aftercare Safety Plan - Discharge Discharge Criteria: Tolerates medication w/o severe side effects, Free of paranoid thoughts, Free of agitation, Normal sleep pattern, Ability to care for self, Reduction of target symptoms Discharge to:: Home, [facility] (Pt still not aware of his medical conditions or the medication that he takes. Pt was able to list that he takes Zyprexa for his Schizophrenia. Discharge planning and testing was done with the pt who expressed that he would get a taxi and asked the wheelchair driver to find him an apartment. Pt still refusing to return to [facility] or be admitted to another prison at this time. Guardianship process was again discussed with pt and he agreed that he needs someone to help him make decisions.) - Treatment Team Participation Patient/Family/SO Statement: Schizoaffective Disorder -Individual and group therapy -Medicine consult, Neurology consult, Podiatry consult -Continue Zyprexa 20 mg PO HS -Continue Prozac 20 mg PO Daily -Disposition planning- start guardianship process Discussed with Family/SO: Yes Was Patient/Family/SO present at Treatment Team Meeting: Yes Treatment Plan Review - Problem Delusions Date Initiated: 02/18/18 Time Initiated: 00:36 Progress toward outcomes: improved Medication nonadherence Time Initiated: 00:37 - Discharge / Continuing Care Discharge to:: [facility]: Residential treatment (Pt was seen in tx team for review on 03/20/18. Pt attended without issue or complaint. Pt denied irritab ility or agitation. Pt still reported that he did not want to return to [facility] or another prison at this time and at time of team reported that he wanted Dr. Tony and hospital staff to help him find an apartment. It was reiterated that pt is being petitioned by this hospital to be provided with a guardian due to perceptual and cognitive disturbances. )
[2018-03-22] MEDS: Multivitamin With Minerals Tab PO SCH (09:06)
--- NOTE | 2018-03-22 10:37 | CP.PCM.CON ---
History of Present Illness - History of Present Illness History of Present Illness: Pt seen for re-evaluation. DRS scores fell within normal limits. Pt provided history of inpatient psychiatric hospitalizations, state hospitalizations and having a guardian when he resided in [place]. Pt reported a desire for a guar jaye at present to help him manage his affairs. He spoke of his wish to live in a room though was unable to describe the process of how this would occur. Patient's request for a guardian should be taken seriously due to patient's history of "Schizophrenia". Thank you Dr. Andrade Past Patient History - Infectious Disease Hx of Infectious Diseases: None - Past Medical History & Family History Past Medical History?: Yes - Past Social History Smoking Status: Former Smoker Alcohol: None - CARDIAC Hx Hypertension: Yes - NEUROLOGICAL Other/Comment: tremors - ENDOCRINE/METABOLIC Hx Diabetes Mellitus Type 1: Yes - MUSCULOSKELETAL/RHEUMATOLOGICAL Hx Falls: Yes Hx Unsteady Gait: Yes - GASTROINTESTINAL Hx Gastroesophageal Reflux: Yes - PSYCHIATRIC Hx Bipolar Disorder: Yes Hx Depression: Yes Hx Schizophrenia: Yes Hx Substance Use: No - SURGICAL HISTORY Hx Surgeries: Yes Other/Comment: retinal detachment in 1981 - ANESTHESIA Hx Anesthesia: No Meds Allergies/Adverse Reactions: Allergies Allergy/AdvReac Type Severity Reaction Status Date / Time olive oil Allergy Mild Verified 10/26/16 21:22 - Medications Medications: Current Medications Acetaminophen (Tylenol 325mg Tab) 650 mg PO Q4 PRN PRN Reason: Pain, moderate (4-7) Last Admin: 03/16/18 09:29 Dose: 650 mg Al Hydrox/Mg Hydrox/Simethicone (Maalox Plus 30 Ml) 30 ml PO Q4 PRN PRN Reason: Dyspepsia Amlodipine Besylate (Norvasc) 10 mg PO DAILY [facility] Last Admin: 03/22/18 08:55 Dose: 10 mg Bismuth Subsalicylate (Pepto-Bismol) 524 mg PO Q4 PRN PRN Reason: Diarrhea Docusate Sodium (Colace) 100 mg PO BID [facility] Last Admin: 03/22/18 08:55 Dose: 100 mg Ergocalciferol (Drisdol 50,000 Intl Units Cap) 1 cap PO Q7D [facility] Last Admin: 03/16/18 08:42 Dose: 1 cap Famotidine (Pepcid) 20 mg PO HS [facility] Last Admin: 03/21/18 21:08 Dose: 20 mg Fluoxetine HCl (Prozac) 20 mg PO DAILY [facility] Last Admin: 03/22/18 08:55 Dose: 20 mg Furosemide (Lasix) 40 mg PO BID [facility] Last Admin: 03/22/18 08:54 Dose: 40 mg Gabapentin (Neurontin) 100 mg PO DAILY [facility] Last Admin: 03/22/18 08:55 Dose: 100 mg Guaifenesin/Dextromethorphan (Robitussin Dm) 10 ml PO Q6 PRN PRN Reason: Cough Last Admin: 03/20/18 17:36 Dose: 10 ml Ibuprofen (Motrin Tab) 400 mg PO Q6 PRN PRN Reason: Pain, moderate (4-7) Last Admin: 03/14/18 09:21 Dose: 400 mg Insulin Human Lispro (Humalog) 0 units SC ACB [facility]; Protocol Last Admin: 03/22/18 08:53 Dose: Not Given Lactic Acid (Lac-Hydrin 12% Cream (140 G)) 1 ea TOP DAILY [facility] Last Admin: 03/22/18 08:53 Dose: 1 applic Loratadine (Claritin) 10 mg PO DAILY [facility] Last Admin: 03/22/18 08:55 Dose: 10 mg Magnesium Hydroxide (Milk Of Magnesia) 30 ml PO HS PRN PRN Reason: Constipation Metformin HCl (Glucophage) 500 mg PO BIDWM [facility] Last Admin: 03/22/18 08:53 Dose: 500 mg Multivitamins/Minerals (Therapeutic-M Tab) 1 tab PO DAILY [facility] Last Admin: 03/22/18 09:06 Dose: 1 tab Olanzapine (Zyprexa) 20 mg PO HS [facility] Last Admin: 03/21/18 21:08 Dose: 20 mg Sennosides (Senokot Tab) 17.2 mg PO BID [facility] Last Admin: 03/22/18 08:54 Dose: 17.2 mg Thiamine HCl (Vitamin B1 Tab) 100 mg PO DAILY [facility] Last Admin: 03/22/18 08:55 Dose: 100 mg Results - Vital Signs Recent Vital Signs: Last Vital Signs Temp 98.1 F 03/22/18 05:41 Pulse 90 03/22/18 05:41 Resp 18 03/22/18 05:41 BP 117/80 03/22/18 08:55 Pulse Ox 135 H 03/16/18 15:48 - Labs Result Diagrams: 02/18/18 17:40 02/22/18 06:00 Labs: Laboratory Results - last 24 hr 03/22/18 05:09 POC Glucose (mg/dL) 79
[2018-03-23] MEDS: Ergocalciferol 50,000 Intl Units Cap PO SCH (08:18)
[2018-03-23] MEDS: Ammonium Lactate 12% Cream (140 g) TOP SCH (08:19)
[2018-03-23] MEDS: Multivitamin With Minerals Tab PO SCH (08:19)
[2018-03-23] MEDS: Insulin Lispro (humaLOG) 100 Units/ml Inj SC SCH (08:20)
--- NOTE | 2018-03-23 09:34 | PCM.PYCHPN ---
Psychiatric Progress Note - Psychiatric Progress Note Patient seen today, length of contact: Pt evaluated, case discussed w/ team, chart reviewed Patient Chief Complaint: pt has remained with paranoid ideation and remains with poor insight and poor judgement and need further stabilization.pt is less agitated and less anxious with flat affect .pt denies side efects . pt remains cognitively impaired and cant make decision and is waiting for guardianship. Medication Change: No Medical Record Reviewed: Yes Mental Status Examination - Cognitive Function Orientation: Person, Place, Situation, Time Memory: Impaired Attention: Poor Concentration: Poor Association: WNL Fund of Knowledge: WNL - Mood Mood: Neutral - Affect Affect: Broad - Speech Speech: Appropriate - Formal Thought Process Formal Thought Process: Loosening of associations - Suicidal Ideation Suicidal Ideation: No - Homicidal Ideation Homicidal Ideation: No Goal/Treatment Plan - Goal/Treatment Plan Need for Continued Stay: Severe functional impairment Progress Toward Problem(s) and Goals/Treatment Plan: continue meds as regimen . d/c plans as per dr panda and pt waiting for placement through guardianship . Estimated Date of D/C: 05/03/18
[2018-03-24] MEDS: Multivitamin With Minerals Tab PO SCH (08:19)
[2018-03-24] MEDS: Ammonium Lactate 12% Cream (140 g) TOP SCH (08:20)
[2018-03-24] MEDS: Insulin Lispro (humaLOG) 100 Units/ml Inj SC SCH (08:21)
--- NOTE | 2018-03-24 13:28 | PCM.PYCHPN ---
Psychiatric Progress Note - Psychiatric Progress Note Patient seen today, length of contact: Pt evaluated, case discussed w/ team, chart reviewed Patient Chief Complaint: pt has not changed in his presentation and still remained with paranoid ideation and remains with poor insight and poor judgement and need further stabilization.pt is less agitated and less anxious with flat affect .pt denies side efects . pt remains cognitively impaired and cant make decision and is waiting for guardianship. Medication Change: No Medical Record Reviewed: Yes Mental Status Examination - Cognitive Function Orientation: Person, Place, Situation, Time Memory: Impaired Attention: Poor Concentration: Poor Association: WNL Fund of Knowledge: WNL - Mood Mood: Neutral - Affect Affect: Broad - Speech Speech: Appropriate - Formal Thought Process Formal Thought Process: Loosening of associations - Suicidal Ideation Suicidal Ideation: No - Homicidal Ideation Homicidal Ideation: No Goal/Treatment Plan - Goal/Treatment Plan Need for Continued Stay: Severe functional impairment Progress Toward Problem(s) and Goals/Treatment Plan: continue meds as regimen . d/c plans as per dr panda and pt waiting for placement through guardianship . Estimated Date of D/C: 05/03/18
--- NOTE | 2018-03-25 08:02 | PCM.PYCHPN ---
Psychiatric Progress Note - Psychiatric Progress Note Patient seen today, length of contact: Pt evaluated, case discussed w/ team, chart reviewed Patient Chief Complaint: Inability to care for self Problems Identified/Issues Discussed: No new events over the weekend. Patient continues to have poor insight and judgment. He continues to [facility] to [facility] although he does not express any acute paranoid ideations. He believes he is too high functi oning to return to the penitentiary and believes he can live in the community without assistance. He can not explain his current medical conditions or which medications he takes. He believes that he can be discharged from the hospital and that he can find a place on his own, despite his physical disability, lack of access to financial resources and lack of social support. When asked what his plan was, he stated that he will go to the bank and then drive around in a taxi until the unknown regional flatbed truck driver can find him an apartment. Patient does not have capacity to make medical decisions at this time. Medication Change: No Medical Record Reviewed: Yes Consults ordered or reviewed: Medicine consult, Neurology consult, Podiatry consult Mental Status Examination - Cognitive Function Orientation: Person, Place, Situation, Time Memory: Impaired Attention: WNL Concentration: WNL Association: WNL Fund of Knowledge: WN Decription of patient's judgement and insights: Poor I/J - Mood Mood: Neutral - Affect Affect: Broad - Speech Speech: Appropriate - Formal Thought Process Formal Thought Process: Loosening of associations Psychotic Thoughts and Behaviors: Denies acute AH/VH/paranoi - Suicidal Ideation Suicidal Ideation: No - Homicidal Ideation Homicidal Ideation: No Goal/Treatment Plan - Goal/Treatment Plan Need for Continued Stay: Severe functional impairment Progress Toward Problem(s) and Goals/Treatment Plan: Schizoaffective Disorder -Individual and group therapy -Medicine consult, Neurology consult, Podiatry consult -Continue Zyprexa 20 mg PO HS -Continue Prozac 20 mg PO Daily -Disposition planning- start guardianship process Estimated Date of D/C: 05/03/18
[2018-03-25] MEDS: Insulin Lispro (humaLOG) 100 Units/ml Inj SC SCH (08:56)
[2018-03-25] MEDS: Ammonium Lactate 12% Cream (140 g) TOP SCH (08:57)
[2018-03-25] MEDS: Multivitamin With Minerals Tab PO SCH (08:58)
[2018-03-26 05:59] VITALS: O2SAT 17
--- NOTE | 2018-03-26 07:53 | PCM.PYCHPN ---
Psychiatric Progress Note - Psychiatric Progress Note Patient seen today, length of contact: Pt evaluated, case discussed w/ team, chart reviewed Patient Chief Complaint: Inability to care for self Problems Identified/Issues Discussed: No new events. Patient continues to have poor insight and judgment. He continues to refuse to return to the senior living although he does not express any acute paranoid ideations. He believes he is too high functioning to return to the senior living and believes he can live in the community without assistance. He can not explain his current medical conditions or which medications he takes. He believes that he can be discharged from the hospital and that he can find a place on his own, despite his physical disability, lack of access to financial resources and lack of social support. Patient does not have capacity to make medical decisions at this time. Medication Change: No Medical Record Reviewed: Yes Consults ordered or reviewed: Medicine consult, Neurology consult, Podiatry consult Mental Status Examination - Cognitive Function Orientation: Person, Place, Situation, Time Memory: Impaired Attention: WNL Concentration: WNL Association: WNL Fund of Knowledge: WNL Decription of patient's judgement and insights: Poor I/J - Mood Mood: Neutral - Affect Affect: Broad - Speech Speech: Appropriate - Formal Thought Process Formal Thought Process: Loosening of associations Psychotic Thoughts and Behaviors: Denies acute AH/VH/paranoi - Suicidal Ideation Suicidal Ideation: No - Homicidal Ideation Homicidal Ideation: No Goal/Treatment Plan - Goal/Treatment Plan Need for Continued Stay: Severe functional impairment Progress Toward Problem(s) and Goals/Treatment Plan: Schizoaffective Disorder -Individual and group therapy -Medicine consult, Neurology consult, Podiatry consult -Continue Zyprexa 20 mg PO HS -Continue Prozac 20 mg PO Daily -Disposition planning- start guardianship process Estimated Date of D/C: 05/03/18
[2018-03-26] MEDS: Ammonium Lactate 12% Cream (140 g) TOP SCH (08:23)
[2018-03-26] MEDS: Insulin Lispro (humaLOG) 100 Units/ml Inj SC SCH (08:25)
[2018-03-26] MEDS: Multivitamin With Minerals Tab PO SCH (08:29)
--- NOTE | 2018-03-27 08:11 | PCM.PYCHPN ---
Psychiatric Progress Note - Psychiatric Progress Note Patient seen today, length of contact: Pt evaluated, case discussed w/ team, chart reviewed Patient Chief Complaint: Inability to care for self Problems Identified/Issues Discussed: No new events overnight. Patient continues to have poor insight and judgment. He continues to refuse to return to the [facility] although he does not express any acute paranoid ideations. He believes he is too high functioning to return to the [facility] and believes he can live in the community without assistance. He can not explain his current medical conditions or which medications he takes. He believes that he can be discharged from the hospital and that he can find a place on his own, despite his physical disability, lack of access to financial resources and lack of social support. Patient does not have capacity to make medical decisions at this time. Medication Change: No Medical Record Reviewed: Yes Consults ordered or reviewed: Medicine consult, Neurology consult, Podiatry consult Mental Status Examination - Cognitive Function Orientation: Person, Place, Situation, Time Memory: Impaired Attention: WNL Concentration: WNL Association: WNL Fund of Knowledge: WNL Decription of patient's judgement and insights: Poor I/J - Mood Mood: Neutral - Affect Affect: Broad - Speech Speech: Appropriate - Formal Thought Process Formal Thought Process: Loosening of associations Psychotic Thoughts and Behaviors: Denies acute AH/VH/paranoi - Suicidal Ideation Suicidal Ideation: No - Homicidal Ideation Homicidal Ideation: No Goal/Treatment Plan - Goal/Treatment Plan Need for Continued Stay: Severe functional impairment Progress Toward Problem(s) and Goals/Treatment Plan: Schizoaffective Disorder -Individual and group therapy -Medicine consult, Neurology consult, Podiatry consult -Continue Zyprexa 20 mg PO HS -Continue Prozac 20 mg PO Daily -Disposition planning- start guardianship process Estimated Date of D/C: 05/03/18
[2018-03-27] MEDS: Multivitamin With Minerals Tab PO SCH (08:35)
[2018-03-27] MEDS: guaiFENesin DM 200 mg-20 mg/10 ml UD PO PRN (08:39)
[2018-03-27] MEDS: Ammonium Lactate 12% Cream (140 g) TOP SCH (09:00)
--- NOTE | 2018-03-27 10:56 | PCM.BM ---
Treatment Plan Problems - Problems identified on initial assessmt Delusions Date Initiated: 02/19/18 Time Initiated: 00:36 Assessment reference: NA Status: Active Medication nonadherence Date Initiated: 02/19/18 Time Initiated: 00:37 Assessment reference: NA Status: Active Treatment assets and liabiliti Patient Assests: cooperative, negotiates basic needs Patient Liabilities: poor support system, medical problems - Milieu Protocol Maintain good personal hygiene: daily Encourage regular showers, daily Remind patient to perform daily oral care, daily Assist patient to perform ADL's Conduct patient checks and document Observation sheet: Q15 minutes Maintain personal safety: every shift Educate patient to report safety concerns to staff, every shift Monitor environment for contraband/sharps Medication safety: Monitor for expected outcome, potential side effects: every shift, Assess barriers to learning: every shift, Assess readiness for medication education: every shift Milieu Narrative: Schizoaffective Disorder -Individual and group therapy -Medicine consult, Neurology consult, Podiatry consult -Continue Zyprexa 20 mg PO HS -Continue Prozac 20 mg PO Daily -Disposition planning- start guardianship process Family Contact Family involvement: Famliy/SO not involved Family contact: Telephone contact initiated by staff Family contact name: Zhane - Friend Family contacted how many times per week?: 2 Family contact comment: [employer] spoke with pt's support and former homemaker, Zhane [phone], for collateral and provide Zhane with visiting hours. Zhane reported that she is pt's only support and he does not have friends or family. She has known pt for four years and was his homemaker for 2 of them. Zhane reported that last time she visited pt at [facility] pt had packed all his belongings and wanted to leave the facility. - Goals for Treatment Patient goals for treatment: Pt reported he wants to be referred to a longterm and not return to Group Home. Discharge/Continuing Care - Education Needs Education Needs: Patient Medication, Patient Diagnosis/Disease Process, Patient Coping Skills, Patient Placement options, Patient Community resources, Patient Aftercare Safety Plan - Discharge Discharge Criteria: Tolerates medication w/o severe side effects, Free of paranoid thoughts, Free of agitation, Normal sleep pattern, Ability to care for self, Reduction of target symptoms Discharge to:: Group Home - Treatment Team Participation Patient/Family/SO Statement: Schizoaffective Disorder -Individual and group therapy -Medicine consult, Neurology consult, Podiatry consult -Continue Zyprexa 20 mg PO HS -Continue Prozac 20 mg PO Daily -Disposition planning- start guardianship process Discussed with Family/SO: Yes Was Patient/Family/SO present at Treatment Team Meeting: Yes Treatment Plan Review Patient participation: Yes Family/SO/Caregiver participation: No Additional Comments: Pt seen and discussed in team meeting. Pt's progress on the unit reviewed and discussed. Pt reported feeling "great." Reason for hospitalization reviewed and pt informed that guardianship process was initiated and he must remain in the hospital until scheduled court hearing. Pt informed of reason for guardianship and pt continues to disagree with interdisciplinary team's recommendations. Pt verbalized that he is capable of caring for himself and able to reside in the community alone. Pt is unable to recall the name of his medications when asked. Pt presents with poor insight and judgment into his illness and the required tools to be able to care for himself in the community. Pt has limited social sup port in the community and has no place to live. Pt continues to refuse to return to [facility] placement. Pt's medications reviewed. Pt requested to be provided with a list of his medications "so i can remember and then tell you next time i see you." Tx plan reviewed and pt verbalized agreement; monitoring, q15, group milieu, medication evaluation by attending psychiatrist; family meeting if family involved in care; and SW to obtain collateral information. SW to continue to follow case. - Problem Delusions Date Initiated: 02/18/18 Time Initiated: 00:36 Progress toward outcomes: improved Medication nonadherence Date Initiated: 02/18/18 Time Initiated: 00:37 Progress toward outcomes: resolved (Pt is compliant with prescribed medications.) - Discharge / Continuing Care Discharge to:: Other (Hospital initiated guardianship process; pt refusing to return to [facility]; assisted living; and/or longterm. Pt requesting to be discharged to the community so he can go t [place] and look for an apartment. Pt presents with poor insight and judgment into his illness and is unable to care for himself. ) Behavioral Health Services: Outpatient therapy, Other (Medication management; structured group treatment) Health Needs: Follow up care/test, Doctor appointments, Special equipment, Nutritional, Medications/Rx, Educational, Recreational/Social
[2018-03-27] MEDS: Insulin Lispro (humaLOG) 100 Units/ml Inj SC SCH (14:31)
--- NOTE | 2018-03-28 07:47 | PCM.PYCHPN ---
Psychiatric Progress Note - Psychiatric Progress Note Patient seen today, length of contact: Pt evaluated, case discussed w/ team, chart reviewed Patient Chief Complaint: Inability to care for self Problems Identified/Issues Discussed: Patient continues to have poor insight and judgment. He continues to refuse to return to the assisted although he does not express any acute paranoid ideations. He believes he is too high functioning to return to the assisted and believes he can live in the community without assistance. He can not explain his current medical conditions or which medications he takes. He believes that he can be discharged from the hospital and that he can find a place on his own, despite his physical disability, lack of access to financial resources and lack of social support. Patient does not have capacity to make medical decisions at this time. Medication Change: No Medical Record Reviewed: Yes Consults ordered or reviewed: Medicine consult, Neurology consult, Podiatry consult Mental Status Examination - Cognitive Function Orientation: Person, Place, Situation, Time Memory: Impaired Attention: WNL Concentration: WNL Association: WNL Fund of Knowledge: WN Decription of patient's judgement and insights: Poor I/J - Mood Mood: Neutral - Affect Affect: Broad - Speech Speech: Appropriate - Formal Thought Process Formal Thought Process: Loosening of associations Psychotic Thoughts and Behaviors: Denies acute AH/VH/paranoi - Suicidal Ideation Suicidal Ideation: No - Homicidal Ideation Homicidal Ideation: No Goal/Treatment Plan - Goal/Treatment Plan Need for Continued Stay: Severe functional impairment Progress Toward Problem(s) and Goals/Treatment Plan: Schizoaffective Disorder -Individual and group therapy -Medicine consult, Neurology consult, Podiatry consult -Continue Zyprexa 20 mg PO HS -Continue Prozac 20 mg PO Daily -Disposition planning- start guardianship process Estimated Date of D/C: 05/03/18
[2018-03-28] MEDS: Multivitamin With Minerals Tab PO SCH (08:20)
[2018-03-28] MEDS: Ammonium Lactate 12% Cream (140 g) TOP SCH (08:21)
[2018-03-28] MEDS: Insulin Lispro (humaLOG) 100 Units/ml Inj SC SCH (08:23)
[2018-03-28] MEDS: guaiFENesin DM 200 mg-20 mg/10 ml UD PO PRN (08:24)
--- NOTE | 2018-03-29 07:54 | PCM.PYCHPN ---
Psychiatric Progress Note - Psychiatric Progress Note Patient seen today, length of contact: Pt evaluated, case discussed w/ team, chart reviewed Patient Chief Complaint: Inability to care for self Problems Identified/Issues Discussed: No new events. Patient continues to have poor insight and judgment. He continues to refuse to return to the detention although he does not express any acute paranoid ideations. He believes he is too high functioning to return to the detention and believes he can live in the community without assistance. He can not explain his current medical conditions or which medications he takes. He believes that he can be discharged from the hospital and that he can find a place on his own, despite his physical disability, lack of access to financial resources and lack of social support. Patient does not have capacity to make medical decisions at this time. Medication Change: No Medical Record Reviewed: Yes Consults ordered or reviewed: Medicine consult, Neurology consult, Podiatry consult Mental Status Examination - Cognitive Function Orientation: Person, Place, Situation, Time Memory: Impaired Attention: WNL Concentration: WNL Association: WNL Fund of Knowledge: WNL Decription of patient's judgement and insights: Poor I/J - Mood Mood: Neutral - Affect Affect: Broad - Speech Speech: Appropriate - Formal Thought Process Formal Thought Process: Loosening of associations Psychotic Thoughts and Behaviors: Denies acute AH/VH/paranoi - Suicidal Ideation Suicidal Ideation: No - Homicidal Ideation Homicidal Ideation: No Goal/Treatment Plan - Goal/Treatment Plan Need for Continued Stay: Severe functional impairment Progress Toward Problem(s) and Goals/Treatment Plan: Schizoaffective Disorder -Individual and group therapy -Medicine consult, Neurology consult, Podiatry consult -Continue Zyprexa 20 mg PO HS -Continue Prozac 20 mg PO Daily -Disposition planning- start guardianship process Estimated Date of D/C: 05/03/18
[2018-03-29] MEDS: Ammonium Lactate 12% Cream (140 g) TOP SCH (08:23)
[2018-03-29] MEDS: Multivitamin With Minerals Tab PO SCH (08:27)
[2018-03-29] MEDS: Insulin Lispro (humaLOG) 100 Units/ml Inj SC SCH (09:27)
[2018-03-30] MEDS: Multivitamin With Minerals Tab PO SCH (08:41)
[2018-03-30] MEDS: Insulin Lispro (humaLOG) 100 Units/ml Inj SC SCH (08:43)
[2018-03-30] MEDS: Ergocalciferol 50,000 Intl Units Cap PO SCH (08:44)
[2018-03-30] MEDS: Ammonium Lactate 12% Cream (140 g) TOP SCH (08:44)
--- NOTE | 2018-03-30 08:52 | PCM.PYCHPN ---
Psychiatric Progress Note - Psychiatric Progress Note Patient seen today, length of contact: Pt evaluated, case discussed w/ team, chart reviewed Patient Chief Complaint: Inability to care for self Problems Identified/Issues Discussed: No new events overnight. Patient continues to have poor insight and judgment. He continues to refuse to return to the custodial although he does not express any acute paranoid ideations. He believes he is too high functioning to return to the custodial and believes he can live in the community without assistance. He can not explain his current medical conditions or which medications he takes. He believes that he can be discharged from the hospital and that he can find a place on his own, despite his physical disability, lack of access to financial resources and lack of social support. Patient does not have capacity to make medical decisions at this time. Medication Change: No Medical Record Reviewed: Yes Consults ordered or reviewed: Medicine consult, Neurology consult, Podiatry consult Mental Status Examination - Cognitive Function Orientation: Person, Place, Situation, Time Memory: Impaired Attention: WNL Concentration: WNL Association: WNL Fund of Knowledge: WNL Decription of patient's judgement and insights: Poor I/J - Mood Mood: Neutral - Affect Affect: Broad - Speech Speech: Appropriate - Formal Thought Process Formal Thought Process: Loosening of associations Psychotic Thoughts and Behaviors: Denies acute AH/VH/paranoi - Suicidal Ideation Suicidal Ideation: No - Homicidal Ideation Homicidal Ideation: No Goal/Treatment Plan - Goal/Treatment Plan Need for Continued Stay: Severe functional impairment Progress Toward Problem(s) and Goals/Treatment Plan: Schizoaffective Disorder -Individual and group therapy -Medicine consult, Neurology consult, Podiatry consult -Continue Zyprexa 20 mg PO HS -Continue Prozac 20 mg PO Daily -Disposition planning- start guardianship process Estimated Date of D/C: 05/03/18
[2018-03-31] MEDS: Multivitamin With Minerals Tab PO SCH (08:39)
[2018-03-31] MEDS: Ammonium Lactate 12% Cream (140 g) TOP SCH (08:40)
[2018-03-31] MEDS: Insulin Lispro (humaLOG) 100 Units/ml Inj SC SCH (08:43)
--- NOTE | 2018-03-31 09:03 | PCM.PYCHPN ---
Psychiatric Progress Note - Psychiatric Progress Note Patient seen today, length of contact: Pt evaluated, case discussed w/ team, chart reviewed Patient Chief Complaint: Inability to care for self Problems Identified/Issues Discussed: Patient continues to have poor insight and judgment. He continues to refuse to return to the group home although he does not express any acute paranoid ideations. He believes he is too high functioning to return to the group home and believes he can live in the community without assistance. He can not explain his current medical conditions or which medications he takes. He believes that he can be discharged from the hospital and that he can find a place on his own, despite his physical disability, lack of access to financial resources and lack of social support. Patient does not have capacity to make medical decisions at this time. Medication Change: No Medical Record Reviewed: Yes Consults ordered or reviewed: Medicine consult, Neurology consult, Podiatry consult Mental Status Examination - Cognitive Function Orientation: Person, Place, Situation, Time Memory: Impaired Attention: WNL Concentration: WNL Association: WNL Fund of Knowledge: WN Decription of patient's judgement and insights: Poor I/J - Mood Mood: Neutral - Affect Affect: Broad - Speech Speech: Appropriate - Formal Thought Process Formal Thought Process: Loosening of associations Psychotic Thoughts and Behaviors: Denies acute AH/VH/paranoi - Suicidal Ideation Suicidal Ideation: No - Homicidal Ideation Homicidal Ideation: No Goal/Treatment Plan - Goal/Treatment Plan Need for Continued Stay: Severe functional impairment Progress Toward Problem(s) and Goals/Treatment Plan: Schizoaffective Disorder -Individual and group therapy -Medicine consult, Neurology consult, Podiatry consult -Continue Zyprexa 20 mg PO HS -Continue Prozac 20 mg PO Daily -Disposition planning- start guardianship process Estimated Date of D/C: 05/03/18
--- NOTE | 2018-04-01 08:08 | PCM.PYCHPN ---
Psychiatric Progress Note - Psychiatric Progress Note Patient seen today, length of contact: Pt evaluated, case discussed w/ team, chart reviewed Patient Chief Complaint: Inability to care for self Problems Identified/Issues Discussed: No new events over the weekend. Patient continues to have poor insight and judgment. He continues to refuse to return to the [facility] although he does not express any acute paranoid ideations. He believes he is too high functi oning to return to the [facility] and believes he can live in the community without assistance. He can not explain his current medical conditions or which medications he takes. He believes that he can be discharged from the hospital and that he can find a place on his own, despite his physical disability, lack of access to financial resources and lack of social support. Patient does not have capacity to make medical decisions at this time. Medication Change: No Medical Record Reviewed: Yes Consults ordered or reviewed: Medicine consult, Neurology consult, Podiatry consult Mental Status Examination - Cognitive Function Orientation: Person, Place, Situation, Time Memory: Impaired Attention: WNL Concentration: WNL Association: WNL Fund of Knowledge: WNL Decription of patient's judgement and insights: Poor I/J - Mood Mood: Neutral - Affect Affect: Broad - Speech Speech: Appropriate - Formal Thought Process Formal Thought Process: Loosening of associations Psychotic Thoughts and Behaviors: Denies acute AH/VH/paranoi - Suicidal Ideation Suicidal Ideation: No - Homicidal Ideation Homicidal Ideation: No Goal/Treatment Plan - Goal/Treatment Plan Need for Continued Stay: Severe functional impairment Progress Toward Problem(s) and Goals/Treatment Plan: Schizoaffective Disorder -Individual and group therapy -Medicine consult, Neurology consult, Podiatry consult -Continue Zyprexa 20 mg PO HS -Continue Prozac 20 mg PO Daily -Disposition planning- start guardianship process Estimated Date of D/C: 05/03/18
[2018-04-01] MEDS: Multivitamin With Minerals Tab PO SCH (08:16)
[2018-04-01] MEDS: Ammonium Lactate 12% Cream (140 g) TOP SCH (08:17)
[2018-04-01] MEDS: Insulin Lispro (humaLOG) 100 Units/ml Inj SC SCH (08:17)
[2018-04-02] MEDS: Multivitamin With Minerals Tab PO SCH (08:24)
[2018-04-02] MEDS: Ammonium Lactate 12% Cream (140 g) TOP SCH (08:27)
[2018-04-02] MEDS: Insulin Lispro (humaLOG) 100 Units/ml Inj SC SCH (08:27)
--- NOTE | 2018-04-02 09:01 | PCM.PYCHPN ---
Psychiatric Progress Note - Psychiatric Progress Note Patient seen today, length of contact: Pt evaluated, case discussed w/ team, chart reviewed Patient Chief Complaint: Inability to care for self Problems Identified/Issues Discussed: No new events. Patient continues to have poor insight and judgment. He continues to refuse to return to the [facility] although he does not express any acute paranoid ideations. He believes he is too high functioning to return to the [facility] and believes he can live in the community without assistance. He can not explain his current medical conditions or which medications he takes. He believes that he can be discharged from the hospital and that he can find a place on his own, despite his physical disability, lack of access to financial resources and lack of social support. Patient does not have capacity to make medical decisions at this time. Medication Change: No Medical Record Reviewed: Yes Consults ordered or reviewed: Medicine consult, Neurology consult, Podiatry consult Mental Status Examination - Cognitive Function Orientation: Person, Place, Situation, Time Memory: Impaired Attention: WNL Concentration: WNL Association: WNL Fund of Knowledge: WNL Decription of patient's judgement and insights: Poor I/J - Mood Mood: Neutral - Affect Affect: Broad - Speech Speech: Appropriate - Formal Thought Process Formal Thought Process: Loosening of associations Psychotic Thoughts and Behaviors: Denies acute AH/VH/paranoi - Suicidal Ideation Suicidal Ideation: No - Homicidal Ideation Homicidal Ideation: No Goal/Treatment Plan - Goal/Treatment Plan Need for Continued Stay: Severe functional impairment Progress Toward Problem(s) and Goals/Treatment Plan: Schizoaffective Disorder -Individual and group therapy -Medicine consult, Neurology consult, Podiatry consult -Continue Zyprexa 20 mg PO HS -Continue Prozac 20 mg PO Daily -Disposition planning- start guardianship process Estimated Date of D/C: 05/03/18
--- NOTE | 2018-04-03 08:07 | PCM.PYCHPN ---
Psychiatric Progress Note - Psychiatric Progress Note Patient seen today, length of contact: Pt evaluated, case discussed w/ team, chart reviewed Patient Chief Complaint: Inability to care for self Problems Identified/Issues Discussed: No new events overnight. Patient continues to have poor insight and judgment. He continues to refuse to return to the [facility] although he does not express any acute paranoid ideations. He believes he is too high functioning to return to the [facility] and believes he can live in the community without assistance. He can not explain his current medical conditions or which medications he takes. He believes that he can be discharged from the hospital and that he can find a place on his own, despite his physical disability, lack of access to financial resources and lack of social support. Patient does not have capacity to make medical decisions at this time. Medication Change: No Medical Record Reviewed: Yes Consults ordered or reviewed: Medicine consult, Neurology consult, Podiatry consult Mental Status Examination - Cognitive Function Orientation: Person, Place, Situation, Time Memory: Impaired Attention: WNL Concentration: WNL Association: WNL Fund of Knowledge: WNL Decription of patient's judgement and insights: Poor I/J - Mood Mood: Neutral - Affect Affect: Broad - Speech Speech: Appropriate - Formal Thought Process Formal Thought Process: Loosening of associations Psychotic Thoughts and Behaviors: Denies acute AH/VH/paranoia - Suicidal Ideation Suicidal Ideation: No - Homicidal Ideation Homicidal Ideation: No Goal/Treatment Plan - Goal/Treatment Plan Need for Continued Stay: Severe functional impairment Progress Toward Problem(s) and Goals/Treatment Plan: Schizoaffective Disorder -Individual and group therapy -Medicine consult, Neurology consult, Podiatry consult -Continue Zyprexa 20 mg PO HS -Continue Prozac 20 mg PO Daily -Disposition planning- start guardianship process Estimated Date of D/C: 05/03/18
[2018-04-03] MEDS: Ammonium Lactate 12% Cream (140 g) TOP SCH (08:12)
[2018-04-03] MEDS: guaiFENesin DM 200 mg-20 mg/10 ml UD PO PRN (08:13)
[2018-04-03] MEDS: Multivitamin With Minerals Tab PO SCH (08:14)
[2018-04-03] MEDS: Insulin Lispro (humaLOG) 100 Units/ml Inj SC SCH (08:18)
--- NOTE | 2018-04-04 08:25 | PCM.PYCHPN ---
Psychiatric Progress Note - Psychiatric Progress Note Patient seen today, length of contact: Pt evaluated, case discussed w/ team, chart reviewed Patient Chief Complaint: Inability to care for self Problems Identified/Issues Discussed: Patient continues to have poor insight and judgment. He continues to refuse to return to the [facility] although he does not express any acute paranoid ideations. He believes he is too high functioning to return to the [facility] and believes he can live in the community without assistance. He can not explain his current medical conditions or which medications he takes. He believes that he can be discharged from the hospital and that he can find a place on his own, despite his physical disability, lack of access to financial resources and lack of social support. Patient does not have capacity to make medical decisions at this time. Medication Change: No Medical Record Reviewed: Yes Consults ordered or reviewed: Medicine consult, Neurology consult, Podiatry consult Mental Status Examination - Cognitive Function Orientation: Person, Place, Situation, Time Memory: Impaired Attention: WNL Concentration: WNL Association: WNL Fund of Knowledge: WN Decription of patient's judgement and insights: Poor I/J - Mood Mood: Neutral - Affect Affect: Broad - Speech Speech: Appropriate - Formal Thought Process Formal Thought Process: Loosening of associations Psychotic Thoughts and Behaviors: Denies acute AH/VH/paranoia - Suicidal Ideation Suicidal Ideation: No - Homicidal Ideation Homicidal Ideation: No Goal/Treatment Plan - Goal/Treatment Plan Need for Continued Stay: Severe functional impairment Progress Toward Problem(s) and Goals/Treatment Plan: Schizoaffective Disorder -Individual and group therapy -Medicine consult, Neurology consult, Podiatry consult -Continue Zyprexa 20 mg PO HS -Continue Prozac 20 mg PO Daily -Disposition planning- start guardianship process Estimated Date of D/C: 05/03/18
[2018-04-04] MEDS: Ammonium Lactate 12% Cream (140 g) TOP SCH (08:36)
[2018-04-04] MEDS: Multivitamin With Minerals Tab PO SCH (08:38)
[2018-04-04] MEDS: Insulin Lispro (humaLOG) 100 Units/ml Inj SC SCH (08:42)
[2018-04-04] MEDS: guaiFENesin DM 200 mg-20 mg/10 ml UD PO PRN (08:53)
--- NOTE | 2018-04-04 14:54 | PCM.BM ---
Treatment Plan Problems - Problems identified on initial assessmt Delusions Date Initiated: 02/19/18 Time Initiated: 00:36 Assessment reference: NA Status: Active Medication nonadherence Date Initiated: 02/19/18 Time Initiated: 00:37 Assessment reference: NA Status: Active Treatment assets and liabiliti Patient Assests: cooperative, negotiates basic needs Patient Liabilities: poor support system, medical problems - Milieu Protocol Maintain good personal hygiene: daily Encourage regular showers, daily Remind patient to perform daily oral care, daily Assist patient to perform ADL's Conduct patient checks and document Observation sheet: Q15 minutes Maintain personal safety: every shift Educate patient to report safety concerns to staff, every shift Monitor environment for contraband/sharps Medication safety: Monitor for expected outcome, potential side effects: every shift, Assess barriers to learning: every shift, Assess readiness for medication education: every shift Milieu Narrative: Schizoaffective Disorder -Individual and group therapy -Medicine consult, Neurology consult, Podiatry consult -Continue Zyprexa 20 mg PO HS -Continue Prozac 20 mg PO Daily -Disposition planning- start guardianship process Family Contact Family involvement: Sinan/CYNTHIA not involved Family contact: Telephone contact initiated by staff Family contact name: Zhane - Friend Family contacted how many times per week?: 2 Family contact comment: Route [employer] Supervisor spoke with pt's support and former homemaker, Zhane [phone], for collateral and provide Zhane with visiting hours. Zhane reported that she is pt's only support and he does not have friends or family. She has known pt for four years and was his homemaker for 2 of them. Zhane reported that last time she visited pt at [place] pt had packed all his belongings and wanted to leave the facility. - Goals for Treatment Patient goals for treatment: Pt reported he wants to be referred to a senior care and not return to Shelter. Discharge/Continuing Care - Education Needs Education Needs: Patient Medication, Patient Diagnosis/Disease Process, Patient Coping Skills, Patient Placement options, Patient Community resources, Patient Aftercare Safety Plan - Discharge Discharge Criteria: Tolerates medication w/o severe side effects, Free of paranoid thoughts, Free of agitation, Normal sleep pattern, Ability to care for self, Reduction of target symptoms Discharge to:: Other (Hospital initiated guardianship process; pt refusing to return to terminologist care; assisted living; and/or senior care. Pt requesting to be discharged to the community so he can go t [place] and look for an apartment. Pt presents with poor insight and judgment into his illness and is unable to care for himself. ) - Treatment Team Participation Patient/Family/SO Statement: Schizoaffective Disorder -Individual and group therapy -Medicine consult, Neurology consult, Podiatry consult -Continue Zyprexa 20 mg PO HS -Continue Prozac 20 mg PO Daily -Disposition planning- start guardianship process Discussed with Family/SO: Yes Was Patient/Family/SO present at Treatment Team Meeting: Yes Treatment Plan Review - Problem Delusions Date Initiated: 02/18/18 Time Initiated: 00:36 Progress toward outcomes: improved Medication nonadherence Date Initiated: 02/18/18 Time Initiated: 00:37 Progress toward outcomes: resolved (Pt is compliant with prescribed medications.) - Discharge / Continuing Care Discharge to:: Shelter Behavioral Health Services: Residential treatment Health Needs: Follow up care/test, Medications/Rx (Pt denied all acute psychiatric complaints, yet was irritable in treatment team as he felt he was not feeling that his blood surgers were being taken frequently enough. Pt also requested that his blood sugar results be shared with him and written down. Guardianship process was discussed with pt again and he offered no complaints and was made aware that he will most likely be on the unit into the New Year as the process moves along. )
--- NOTE | 2018-04-05 08:01 | PCM.PYCHPN ---
Psychiatric Progress Note - Psychiatric Progress Note Patient seen today, length of contact: Pt evaluated, case discussed w/ team, chart reviewed Patient Chief Complaint: Inability to care for self Problems Identified/Issues Discussed: No new events overnight. Patient continues to have poor insight and judgment. He continues to refuse to return to the [facility] although he does not express any acute paranoid ideations. He believes he is too high functioning to return to the [facility]-way and believes he can live in the community without assistance. He can not explain his current medical conditions or which medications he takes. He believes that he can be discharged from the hospital and that he can find a place on his own, despite his physical disability, lack of access to financial resources and lack of social support. Patient does not have capacity to make medical decisions at this time. Medication Change: No Medical Record Reviewed: Yes Consults ordered or reviewed: Medicine consult, Neurology consult, Podiatry consult Mental Status Examination - Cognitive Function Orientation: Person, Place, Situation, Time Memory: Impaired Attention: WNL Concentration: WNL Association: WNL Fund of Knowledge: WNL Decription of patient's judgement and insights: Poor I/J - Mood Mood: Neutral - Affect Affect: Broad - Speech Speech: Appropriate - Formal Thought Process Formal Thought Process: Loosening of associations Psychotic Thoughts and Behaviors: Denies acute AH/VH/paranoia - Suicidal Ideation Suicidal Ideation: No - Homicidal Ideation Homicidal Ideation: No Goal/Treatment Plan - Goal/Treatment Plan Need for Continued Stay: Severe functional impairment Progress Toward Problem(s) and Goals/Treatment Plan: Schizoaffective Disorder -Individual and group therapy -Medicine consult, Neurology consult, Podiatry consult -Continue Zyprexa 20 mg PO HS -Continue Prozac 20 mg PO Daily -Disposition planning- start guardianship process Estimated Date of D/C: 05/03/18
[2018-04-05] MEDS: Ammonium Lactate 12% Cream (140 g) TOP SCH (08:42)
[2018-04-05] MEDS: Multivitamin With Minerals Tab PO SCH (08:42)
[2018-04-05] MEDS: Insulin Lispro (humaLOG) 100 Units/ml Inj SC SCH (08:47)
[2018-04-06] MEDS: Ammonium Lactate 12% Cream (140 g) TOP SCH (08:47)
[2018-04-06] MEDS: Multivitamin With Minerals Tab PO SCH (08:48)
[2018-04-06] MEDS: Insulin Lispro (humaLOG) 100 Units/ml Inj SC SCH (08:51)
--- NOTE | 2018-04-06 09:51 | PCM.PYCHPN ---
Psychiatric Progress Note - Psychiatric Progress Note Patient seen today, length of contact: Pt evaluated, case discussed w/ team, chart reviewed Patient Chief Complaint: pt has not changed in his presentation and still remained with paranoid ideation and remains with poor insight and poor judgement and need further stabilization.pt is less agitated and less anxious with flat affect .pt denies side efects . pt remains cognitively impaired and cant make decision and is waiting for guardianship. Medication Change: No Medical Record Reviewed: Yes Mental Status Examination - Cognitive Function Orientation: Person, Place, Situation, Time Memory: Impaired Attention: WNL Concentration: WNL Association: WNL Fund of Knowledge: WNL - Mood Mood: Neutral - Affect Affect: Broad - Speech Speech: Appropriate - Formal Thought Process Formal Thought Process: Loosening of associations - Suicidal Ideation Suicidal Ideation: No - Homicidal Ideation Homicidal Ideation: No Goal/Treatment Plan - Goal/Treatment Plan Need for Continued Stay: Severe functional impairment Progress Toward Problem(s) and Goals/Treatment Plan: continue meds as regimen . d/c plans as per dr pnada and pt waiting for placement through guardianship . Estimated Date of D/C: 05/03/18
[2018-04-07] MEDS: Ammonium Lactate 12% Cream (140 g) TOP SCH (08:24)
[2018-04-07] MEDS: Insulin Lispro (humaLOG) 100 Units/ml Inj SC SCH (08:26)
[2018-04-07] MEDS: Multivitamin With Minerals Tab PO SCH (08:28)
--- NOTE | 2018-04-08 07:50 | PCM.PYCHPN ---
Psychiatric Progress Note - Psychiatric Progress Note Patient seen today, length of contact: Pt evaluated, case discussed w/ team, chart reviewed Patient Chief Complaint: Inability to care for self Problems Identified/Issues Discussed: No new events over the weekend. Patient continues to have poor insight and judgment. He continues to refuse to return to the detention although he does not express any acute paranoid ideations. He believes he is too high functi oning to return to the detention and believes he can live in the community without assistance. He can not explain his current medical conditions or which medications he takes. He believes that he can be discharged from the hospital and that he can find a place on his own, despite his physical disability, lack of access to financial resources and lack of social support. Patient does not have capacity to make medical decisions at this time. Medication Change: No Medical Record Reviewed: Yes Consults ordered or reviewed: Medicine consult, Neurology consult, Podiatry consult Mental Status Examination - Cognitive Function Orientation: Person, Place, Situation, Time Memory: Impaired Attention: WNL Concentration: WNL Association: WNL Fund of Knowledge: WNL Decription of patient's judgement and insights: Poor I/J - Mood Mood: Neutral - Affect Affect: Broad - Speech Speech: Appropriate - Formal Thought Process Formal Thought Process: Loosening of associations Psychotic Thoughts and Behaviors: Denies AH/VH - Suicidal Ideation Suicidal Ideation: No - Homicidal Ideation Homicidal Ideation: No Goal/Treatment Plan - Goal/Treatment Plan Need for Continued Stay: Severe functional impairment Progress Toward Problem(s) and Goals/Treatment Plan: Schizoaffective Disorder -Individual and group therapy -Medicine consult, Neurology consult, Podiatry consult -Continue Zyprexa 20 mg PO HS -Continue Prozac 20 mg PO Daily -Disposition planning- guardianship initiated Estimated Date of D/C: 05/31/18
[2018-04-08] MEDS: Multivitamin With Minerals Tab PO SCH (08:30)
[2018-04-08] MEDS: Ammonium Lactate 12% Cream (140 g) TOP SCH (08:30)
[2018-04-08] MEDS: Insulin Lispro (humaLOG) 100 Units/ml Inj SC SCH (08:31)
--- NOTE | 2018-04-09 08:29 | PCM.PYCHPN ---
Psychiatric Progress Note - Psychiatric Progress Note Patient seen today, length of contact: Pt evaluated, case discussed w/ team, chart reviewed Patient Chief Complaint: Inability to care for self Problems Identified/Issues Discussed: No new events. Patient continues to have poor insight and judgment. He continues to refuse to return to the long term although he does not express any acute paranoid ideations. He believes he is too high functioning to return to the long term and believes he can live in the community without assistance. He can not explain his current medical conditions or which medications he takes. He believes that he can be discharged from the hospital and that he can find a place on his own, despite his physical disability, lack of access to financial resources and lack of social support. Patient does not have capacity to make medical decisions at this time. Medication Change: No Medical Record Reviewed: Yes Consults ordered or reviewed: Medicine consult, Neurology consult, Podiatry consult Mental Status Examination - Cognitive Function Orientation: Person, Place, Situation, Time Memory: Impaired Attention: WNL Concentration: WNL Association: WNL Fund of Knowledge: WNL Decription of patient's judgement and insights: Poor I/J - Mood Mood: Neutral - Affect Affect: Broad - Speech Speech: Appropriate - Formal Thought Process Formal Thought Process: Loosening of associations Psychotic Thoughts and Behaviors: Denies AH/VH - Suicidal Ideation Suicidal Ideation: No - Homicidal Ideation Homicidal Ideation: No Goal/Treatment Plan - Goal/Treatment Plan Need for Continued Stay: Severe functional impairment Progress Toward Problem(s) and Goals/Treatment Plan: Schizoaffective Disorder -Individual and group therapy -Medicine consult, Neurology consult, Podiatry consult -Continue Zyprexa 20 mg PO HS -Continue Prozac 20 mg PO Daily -Disposition planning- guardianship initiated Estimated Date of D/C: 05/31/18
[2018-04-09] MEDS: Insulin Lispro (humaLOG) 100 Units/ml Inj SC SCH (08:46)
[2018-04-09] MEDS: Multivitamin With Minerals Tab PO SCH (08:48)
[2018-04-09] MEDS: Ammonium Lactate 12% Cream (140 g) TOP SCH (08:51)
--- NOTE | 2018-04-10 08:06 | PCM.PYCHPN ---
Psychiatric Progress Note - Psychiatric Progress Note Patient seen today, length of contact: Pt evaluated, case discussed w/ team, chart reviewed Patient Chief Complaint: Inability to care for self Problems Identified/Issues Discussed: No new events overnight. Patient continues to have poor insight and judgment. He continues to refuse to return to the custodial although he does not express any acute paranoid ideations. He believes he is too high functioning to return to the custodial and believes he can live in the community without assistance. He can not explain his current medical conditions or which medications he takes. He believes that he can be discharged from the hospital and that he can find a place on his own, despite his physical disability, lack of access to financial resources and lack of social support. Patient does not have capacity to make medical decisions at this time. Medication Change: No Medical Record Reviewed: Yes Consults ordered or reviewed: Medicine consult, Neurology consult, Podiatry consult Mental Status Examination - Cognitive Function Orientation: Person, Place, Situation, Time Memory: Impaired Attention: WNL Concentration: WNL Association: WNL Fund of Knowledge: WNL Decription of patient's judgement and insights: Poor I/J - Mood Mood: Neutral - Affect Affect: Broad - Speech Speech: Appropriate - Formal Thought Process Formal Thought Process: Loosening of associations Psychotic Thoughts and Behaviors: Denies AH/VH - Suicidal Ideation Suicidal Ideation: No - Homicidal Ideation Homicidal Ideation: No Goal/Treatment Plan - Goal/Treatment Plan Need for Continued Stay: Severe functional impairment Progress Toward Problem(s) and Goals/Treatment Plan: Schizoaffective Disorder -Individual and group therapy -Medicine consult, Neurology consult, Podiatry consult -Continue Zyprexa 20 mg PO HS -Continue Prozac 20 mg PO Daily -Disposition planning- guardianship initiated Estimated Date of D/C: 05/31/18
[2018-04-10] MEDS: Ammonium Lactate 12% Cream (140 g) TOP SCH (08:30)
[2018-04-10] MEDS: Multivitamin With Minerals Tab PO SCH (08:31)
--- NOTE | 2018-04-10 12:30 | PCM.BM ---
Treatment Plan Problems - Problems identified on initial assessmt Delusions Date Initiated: 02/19/18 Time Initiated: 00:36 Assessment reference: NA Status: Active Medication nonadherence Date Initiated: 02/19/18 Time Initiated: 00:37 Assessment reference: NA Status: Active Treatment assets and liabiliti Patient Assests: cooperative, negotiates basic needs Patient Liabilities: poor support system, medical problems - Milieu Protocol Maintain good personal hygiene: daily Encourage regular showers, daily Remind patient to perform daily oral care, daily Assist patient to perform ADL's Conduct patient checks and document Observation sheet: Q15 minutes Maintain personal safety: every shift Educate patient to report safety concerns to staff, every shift Monitor environment for contraband/sharps Medication safety: Monitor for expected outcome, potential side effects: every shift, Assess barriers to learning: every shift, Assess readiness for medication education: every shift Milieu Narrative: Schizoaffective Disorder -Individual and group therapy -Medicine consult, Neurology consult, Podiatry consult -Continue Zyprexa 20 mg PO HS -Continue Prozac 20 mg PO Daily -Disposition planning- guardianship initiated Family Contact Family involvement: Famliy/SO not involved Family contact: Telephone contact initiated by staff Family contact name: Zhane - Friend Family contacted how many times per week?: 2 Family contact comment: [employer] Candy Maker spoke with pt's support and former homemaker, Zhane [phone], for collateral and provide Zhane with visiting hours. Zhaen reported that she is pt's only support and he does not have friends or family. She has known pt for four years and was his homemaker for 2 of them. Zhane reported that last time she visited pt at [place] pt had packed all his belongings and wanted to leave the facility. - Goals for Treatment Patient goals for treatment: Pt reported he wants to be referred to a [facility] and not return to [facility]. Discharge/Continuing Care - Education Needs Education Needs: Patient Medication, Patient Diagnosis/Disease Process, Patient Coping Skills, Patient Placement options, Patient Community resources, Patient Aftercare Safety Plan - Discharge Discharge Criteria: Tolerates medication w/o severe side effects, Free of paranoid thoughts, Free of agitation, Normal sleep pattern, Ability to care for self, Reduction of target symptoms Discharge to:: Detention - Treatment Team Participation Patient/Family/SO Statement: Schizoaffective Disorder -Individual and group therapy -Medicine consult, Neurology consult, Podiatry consult -Continue Zyprexa 20 mg PO HS -Continue Prozac 20 mg PO Daily -Disposition planning- guardianship initiated Discussed with Family/SO: Yes Was Patient/Family/SO present at Treatment Team Meeting: Yes Treatment Plan Review Patient participation: Yes Family/SO/Caregiver participation: No Additional Comments: Pt seen and discussed i team meeting. Pt's progress and bx on the unit reviewed. Pt reported having no questions or concerns regarding his current tx plan. Pt reported having no issues or complications with his medications. Pt is attending clinical and activity groups. Pt can be demanding at times, but re-directed. Pt reported he is aware of the pending guardianship paperwork and reported "I waited this long, i can wait short time now." tx plan reviewed and pt verbalized agreement. SW to continue to follow case. - Problem Delusions Date Initiated: 02/18/18 Time Initiated: 00:36 Progress toward outcomes: improved Medication nonadherence Date Initiated: 02/18/18 Time Initiated: 00:37 Progress toward outcomes: resolved (Pt is compliant with prescribed medications.) - Discharge / Continuing Care Discharge to:: Other (Pt is pending guardianship process; court hearing pending. ) Behavioral Health Services: Outpatient therapy, Home health care, Adult day care Health Needs: Follow up care/test, Doctor appointments, Special equipment, Nutritional, Medications/Rx, Recreational/Social
--- NOTE | 2018-04-11 08:10 | PCM.PYCHPN ---
Psychiatric Progress Note - Psychiatric Progress Note Patient seen today, length of contact: Pt evaluated, case discussed w/ team, chart reviewed Patient Chief Complaint: Inability to care for self Problems Identified/Issues Discussed: No new events. No acute complaints. Patient continues to have poor insight and judgment. He continues to refuse to return to the jail although he does not express any acute paranoid ideations. He believes he is too high f unctioning to return to the jail and believes he can live in the community without assistance. He can not explain his current medical conditions or which medications he takes. He believes that he can be discharged from the hospital and that he can find a place on his own, despite his physical disability, lack of access to financial resources and lack of social support. Patient does not have capacity to make medical decisions at this time. Medication Change: No Medical Record Reviewed: Yes Mental Status Examination - Cognitive Function Orientation: Person, Place, Situation, Time Memory: Impaired Attention: WNL Concentration: WNL Association: WNL Fund of Knowledge: WNL Decription of patient's judgement and insights: Poor I/J - Mood Mood: Neutral - Affect Affect: Broad - Speech Speech: Appropriate - Formal Thought Process Formal Thought Process: Loosening of associations Psychotic Thoughts and Behaviors: Denies AH/VH - Suicidal Ideation Suicidal Ideation: No - Homicidal Ideation Homicidal Ideation: No Goal/Treatment Plan - Goal/Treatment Plan Need for Continued Stay: Severe functional impairment Progress Toward Problem(s) and Goals/Treatment Plan: Schizoaffective Disorder -Individual and group therapy -Medicine consult, Neurology consult, Podiatry consult -Continue Zyprexa 20 mg PO HS -Continue Prozac 20 mg PO Daily -Disposition planning- guardianship initiated Estimated Date of D/C: 05/31/18
[2018-04-11] MEDS: Multivitamin With Minerals Tab PO SCH (08:49)
[2018-04-11] MEDS: Ammonium Lactate 12% Cream (140 g) TOP SCH (08:52)
[2018-04-11] MEDS: guaiFENesin DM 200 mg-20 mg/10 ml UD PO PRN (19:26)
--- NOTE | 2018-04-12 08:20 | PCM.PYCHPN ---
Psychiatric Progress Note - Psychiatric Progress Note Patient seen today, length of contact: Pt evaluated, case discussed w/ team, chart reviewed Patient Chief Complaint: Inability to care for self Problems Identified/Issues Discussed: No acute complaints. Patient continues to have poor insight and judgment. He continues to refuse to return to the [facility] although he does not express any acute paranoid ideations. He believes he is too high functioning to return to the penitentiary and believes he can live in the community without assistance. He can not explain his current medical conditions or which medications he takes. He believes that he can be discharged from the hospital and that he can find a place on his own, despite his physical disability, lack of access to financial resources and lack of social support. Patient does not have capacity to make medical decisions at this time. Medication Change: No Medical Record Reviewed: Yes Consults ordered or reviewed: Medicine consult, Neurology consult, Podiatry consult Mental Status Examination - Cognitive Function Orientation: Person, Place, Situation, Time Memory: Impaired Attention: WNL Concentration: WNL Association: WNL Fund of Knowledge: WNL Decription of patient's judgement and insights: Poor I/J - Mood Mood: Neutral - Affect Affect: Broad - Speech Speech: Appropriate - Formal Thought Process Formal Thought Process: Loosening of associations Psychotic Thoughts and Behaviors: Denies AH/VH - Suicidal Ideation Suicidal Ideation: No - Homicidal Ideation Homicidal Ideation: No Goal/Treatment Plan - Goal/Treatment Plan Need for Continued Stay: Severe functional impairment Progress Toward Problem(s) and Goals/Treatment Plan: Schizoaffective Disorder -Individual and group therapy -Medicine consult, Neurology consult, Podiatry consult -Continue Zyprexa 20 mg PO HS -Continue Prozac 20 mg PO Daily -Disposition planning- guardianship initiated Estimated Date of D/C: 05/31/18
[2018-04-12] MEDS: Multivitamin With Minerals Tab PO SCH (08:33)
[2018-04-12] MEDS: guaiFENesin DM 200 mg-20 mg/10 ml UD PO PRN (08:34)
[2018-04-12] MEDS: Ammonium Lactate 12% Cream (140 g) TOP SCH (10:49)
[2018-04-13] MEDS: guaiFENesin DM 200 mg-20 mg/10 ml UD PO PRN (08:32)
[2018-04-13] MEDS: Ammonium Lactate 12% Cream (140 g) TOP SCH (08:32)
[2018-04-13] MEDS: Multivitamin With Minerals Tab PO SCH (08:36)
--- NOTE | 2018-04-13 12:49 | PCM.PYCHPN ---
Psychiatric Progress Note - Psychiatric Progress Note Patient seen today, length of contact: Pt evaluated, case discussed w/ team, chart reviewed Patient Chief Complaint: seen in milieu, does not believe he is ill , believes that he can find own placement, does not believe he needs jail, staff report pt has been taking medications cooperative with medications Problems Identified/Issues Discussed: alteration in mood in cognition self pending guardianship? does not want to go back to jail Medical Problems: per chart Diagnostic Results: per psychiatry per medicine per nursing per hospice social worker per recreational worker DSM 5 Symptoms Update: impaired judgment impaired self care Medication Change: No Medical Record Reviewed: Yes Mental Status Examination - Cognitive Function Orientation: Person, Place, Situation, Time Memory: Impaired Attention: WNL Concentration: WNL Association: WNL Fund of Knowledge: WNL - Mood Mood: Neutral - Affect Affect: Broad - Speech Speech: Appropriate - Formal Thought Process Formal Thought Process: Loosening of associations - Suicidal Ideation Suicidal Ideation: No - Homicidal Ideation Homicidal Ideation: No Goal/Treatment Plan - Goal/Treatment Plan Need for Continued Stay: Severe functional impairment Progress Toward Problem(s) and Goals/Treatment Plan: inpt milieu adjust med per status vital signs and clinical observation per clinical status discharge planning in progress working related to possible guardianship Estimated Date of D/C: 05/31/18
[2018-04-14] MEDS: Ammonium Lactate 12% Cream (140 g) TOP SCH (08:12)
[2018-04-14] MEDS: Multivitamin With Minerals Tab PO SCH (08:13)
--- NOTE | 2018-04-14 09:53 | PCM.PYCHPN ---
Psychiatric Progress Note - Psychiatric Progress Note Patient seen today, length of contact: Pt evaluated, case discussed w/ team, chart reviewed Patient Chief Complaint: I like listening to music Problems Identified/Issues Discussed: pt evaluated in day room, loud, irritable, labile affect , concrete thought process, no reported side effects of medications, denied command hallucinations, denied suicidal or homicidal ideation DSM 5 Symptoms Update: schizophrenia Medication Change: No Medical Record Reviewed: Yes Mental Status Examination - Cognitive Function Orientation: Person, Place, Situation, Time Memory: Impaired Attention: WNL Concentration: WNL Association: WNL Fund of Knowledge: WNL - Mood Mood: Neutral - Affect Affect: Broad - Speech Speech: Appropriate - Formal Thought Process Formal Thought Process: Loosening of associations - Suicidal Ideation Suicidal Ideation: No - Homicidal Ideation Homicidal Ideation: No Goal/Treatment Plan - Goal/Treatment Plan Need for Continued Stay: Severe functional impairment Progress Toward Problem(s) and Goals/Treatment Plan: continue current management cbt group and supportive therapy Estimated Date of D/C: 05/31/18
--- NOTE | 2018-04-15 08:06 | PCM.PYCHPN ---
Psychiatric Progress Note - Psychiatric Progress Note Patient seen today, length of contact: Pt evaluated, case discussed w/ team, chart reviewed Patient Chief Complaint: Inability to care for self Problems Identified/Issues Discussed: No acute complaints. No significant events over the weekend. Patient continues to have poor insight and judgment. He continues to refuse to return to the long-term although he does not express any acute paranoid ideations. He believes he is too high functioning to return to the long-term and believes he can live in the community without assistance. He can not explain his current medical conditions or which medications he takes. He believes that he can be discharged from the hospital and that he can find a place on his own, despite his physical disability, lack of access to financial resources and lack of social support. Patient does not have capacity to make medical decisions at this time. Medication Change: No Medical Record Reviewed: Yes Consults ordered or reviewed: Medicine consult, Neurology consult, Podiatry consult Mental Status Examination - Cognitive Function Orientation: Person, Place, Situation, Time Memory: Impaired Attention: WNL Concentration: WNL Association: WNL Fund of Knowledge: WNL Decription of patient's judgement and insights: Poor I/J - Mood Mood: Neutral - Affect Affect: Broad - Speech Speech: Appropriate - Formal Thought Process Formal Thought Process: Loosening of associations Psychotic Thoughts and Behaviors: Denies AH/VH/paranoia/delusions - Suicidal Ideation Suicidal Ideation: No - Homicidal Ideation Homicidal Ideation: No Goal/Treatment Plan - Goal/Treatment Plan Need for Continued Stay: Severe functional impairment Progress Toward Problem(s) and Goals/Treatment Plan: Schizoaffective Disorder -Individual and group therapy -Medicine consult, Neurology consult, Podiatry consult -Continue Zyprexa 20 mg PO HS -Continue Prozac 20 mg PO Daily -Disposition planning- guardianship initiated Estimated Date of D/C: 05/31/18
[2018-04-15] MEDS: Ammonium Lactate 12% Cream (140 g) TOP SCH (08:13)
[2018-04-15] MEDS: Multivitamin With Minerals Tab PO SCH (08:15)
[2018-04-15] MEDS: guaiFENesin DM 200 mg-20 mg/10 ml UD PO PRN (08:20)
--- NOTE | 2018-04-16 08:18 | PCM.PYCHPN ---
Psychiatric Progress Note - Psychiatric Progress Note Patient seen today, length of contact: Pt evaluated, case discussed w/ team, chart reviewed Patient Chief Complaint: Inability to care for self Problems Identified/Issues Discussed: No acute complaints. No new events. Patient continues to have poor insight and judgment. He [facility] to [facility] the [facility] although he does not express any acute paranoid ideations. He believes he is too high functioning to return to the [facility] and believes he can live in the community without assistance. He can not explain his current medical conditions or which medications he takes. He believes that he can be discharged from the hospital and that he can find a place on his own, despite his physical disability, lack of access to financial resources and lack of social support. Patient does not have capacity to make medical decisions at this time. Medication Change: No Medical Record Reviewed: Yes Consults ordered or reviewed: Medicine consult, Neurology consult, Podiatry consult Mental Status Examination - Cognitive Function Orientation: Person, Place, Situation, Time Memory: Impaired Attention: WNL Concentration: WNL Association: WNL Fund of Knowledge: WNL Decription of patient's judgement and insights: Poor I/J - Mood Mood: Neutral - Affect Affect: Broad - Speech Speech: Appropriate - Formal Thought Process Formal Thought Process: Loosening of associations Psychotic Thoughts and Behaviors: Denies AH/VH/paranoia/delusions - Suicidal Ideation Suicidal Ideation: No - Homicidal Ideation Homicidal Ideation: No Goal/Treatment Plan - Goal/Treatment Plan Need for Continued Stay: Severe functional impairment Progress Toward Problem(s) and Goals/Treatment Plan: Schizoaffective Disorder -Individual and group therapy -Medicine consult, Neurology consult, Podiatry consult -Continue Zyprexa 20 mg PO HS -Continue Prozac 20 mg PO Daily -Disposition planning- guardianship initiated Estimated Date of D/C: 05/31/18
[2018-04-16] MEDS: Multivitamin With Minerals Tab PO SCH (08:29)
[2018-04-16] MEDS: Ammonium Lactate 12% Cream (140 g) TOP SCH (10:00)
--- NOTE | 2018-04-17 08:03 | PCM.PYCHPN ---
Psychiatric Progress Note - Psychiatric Progress Note Patient seen today, length of contact: Pt evaluated, case discussed w/ team, chart reviewed Patient Chief Complaint: Inability to care for self Problems Identified/Issues Discussed: No new events overnight. Patient continues to have poor insight and judgment. He continues to refuse to return to the [facility] although he does not express any acute paranoid ideations. He believes he is too high functioning to return to the [facility] and believes he can live in the community without assistance. He can not explain his current medical conditions or which medications he takes. He believes that he can be discharged from the hospital and that he can find a place on his own, despite his physical disability, lack of access to financial resources and lack of social support. Patient does not have capacity to make medical decisions at this time. Medication Change: No Medical Record Reviewed: Yes Consults ordered or reviewed: Medicine consult, Neurology consult, Podiatry consult Mental Status Examination - Cognitive Function Orientation: Person, Place, Situation, Time Memory: Impaired Attention: WNL Concentration: WNL Association: WNL Fund of Knowledge: WN Decription of patient's judgement and insights: Poor I/J - Mood Mood: Neutral - Affect Affect: Broad - Speech Speech: Appropriate - Formal Thought Process Formal Thought Process: Loosening of associations Psychotic Thoughts and Behaviors: Denies AH/VH/paranoia/delusions - Suicidal Ideation Suicidal Ideation: No - Homicidal Ideation Homicidal Ideation: No Goal/Treatment Plan - Goal/Treatment Plan Need for Continued Stay: Severe functional impairment Progress Toward Problem(s) and Goals/Treatment Plan: Schizoaffective Disorder -Individual and group therapy -Medicine consult, Neurology consult, Podiatry consult -Continue Zyprexa 20 mg PO HS -Continue Prozac 20 mg PO Daily -Disposition planning- guardianship initiated Estimated Date of D/C: 05/31/18
[2018-04-17] MEDS: Ammonium Lactate 12% Cream (140 g) TOP SCH (08:42)
[2018-04-17] MEDS: Multivitamin With Minerals Tab PO SCH (08:43)
--- NOTE | 2018-04-17 11:24 | PCM.BM ---
Treatment Plan Problems - Problems identified on initial assessmt Delusions Date Initiated: 02/19/18 Time Initiated: 00:36 Assessment reference: NA Status: Active Medication nonadherence Date Initiated: 02/19/18 Time Initiated: 00:37 Assessment reference: NA Status: Active Treatment assets and liabiliti Patient Assests: cooperative, negotiates basic needs Patient Liabilities: poor support system, medical problems - Milieu Protocol Maintain good personal hygiene: daily Encourage regular showers, daily Remind patient to perform daily oral care, daily Assist patient to perform ADL's Conduct patient checks and document Observation sheet: Q15 minutes Maintain personal safety: every shift Educate patient to report safety concerns to staff, every shift Monitor environment for contraband/sharps Medication safety: Monitor for expected outcome, potential side effects: every shift, Assess barriers to learning: every shift, Assess readiness for medication education: every shift Milieu Narrative: Schizoaffective Disorder -Individual and group therapy -Medicine consult, Neurology consult, Podiatry consult -Continue Zyprexa 20 mg PO HS -Continue Prozac 20 mg PO Daily -Disposition planning- guardianship initiated Family Contact Family involvement: Sinan/CYNTHIA not involved Family contact: Telephone contact initiated by staff Family contact name: Zhane - Friend Family contacted how many times per week?: 2 Family contact comment: Sc[employer]bler spoke with pt's support and former homemaker, Zhane [phone], for collateral and provide Zhane with visiting hours. Zhane reported that she is pt's only support and he does not have friends or family. She has known pt for four years and was his homemaker for 2 of them. Zhane reported that last time she visited pt at [facility] pt had packed all his belongings and wanted to leave the facility. - Goals for Treatment Patient goals for treatment: Pt reported he wants to be referred to a detention and not return to [facility]. Discharge/Continuing Care - Education Needs Education Needs: Patient Medication, Patient Diagnosis/Disease Process, Patient Coping Skills, Patient Placement options, Patient Community resources, Patient Aftercare Safety Plan - Discharge Discharge Criteria: Tolerates medication w/o severe side effects, Free of paranoid thoughts, Free of agitation, Normal sleep pattern, Ability to care for self, Reduction of target symptoms Discharge to:: Other (Pt is pending guardianship process; court hearing pending. ) - Treatment Team Participation Patient/Family/SO Statement: Schizoaffective Disorder -Individual and group therapy -Medicine consult, Neurology consult, Podiatry consult -Continue Zyprexa 20 mg PO HS -Continue Prozac 20 mg PO Daily -Disposition planning- guardianship initiated Discussed with Family/SO: Yes Was Patient/Family/SO present at Treatment Team Meeting: Yes Treatment Plan Review Patient participation: Yes Family/SO/Caregiver participation: No Additional Comments: Pt seen and discussed in team meeting. Pt's progress and bx on the unit reviewed and discussed. Pt presents wit increased agitation, irritability and verbally abusive towards other residents. Pt observed to become confrontational with other residents. Pt irritable and agitated with RN at [employer]in[employer] 2nd shift when demands are not met immediately. Reportedly, pt was observed to be banging the walker on the floor when re-directed. Pt questioned about his bx towards nurses and other residents; pt denied bx and stated "it's not my way of solving a problem." Pt advised that due to his most recent bx towards other residents he will not be able to attend group therapy today. Pt unable to rationalize with interdisciplinary team in regards to his bx/ Pt reported "I don't see anything wrong." Pt's medications reviewed and discussed. Tx plan reviewed and discussed. Pt is still pending guardianship process. Court date TBD. SW to continue to follow case. - Problem Delusions Date Initiated: 02/18/18 Time Initiated: 00:36 Progress toward outcomes: improved Medication nonadherence Date Initiated: 02/18/18 Time Initiated: 00:37 Progress toward outcomes: resolved (Pt is compliant with prescribed medications.) Agitated/Aggressive behavior Date Initiated: 04/15/18 Time Initiated: 11:35 Progress toward outcomes: unchanged (Pt is verbally abusive towards other patients. Pt observed to provoke altercations with other residents. Pt presents with poor insight and rational when confronted about bx on the unit. Pt believes that his bx towards other residents is appropriate.) - Discharge / Continuing Care Discharge to:: Other (Pt is pending guardianship. Unclear if pt will be returning to a facility or home with services. Pt martinez snot have a safe place to return too and is unable to care for himself at this time. Pt would benefit from 24 hour supervision and care. ) Behavioral Health Services: Other (Medication management; structured group therapy; individual therapy) Health Needs: Follow up care/test, Doctor appointments, Special equipment, Nutritional, Medications/Rx, Educational, Recreational/Social
--- NOTE | 2018-04-18 08:29 | PCM.PYCHPN ---
Psychiatric Progress Note - Psychiatric Progress Note Patient seen today, length of contact: Pt evaluated, case discussed w/ team, chart reviewed Patient Chief Complaint: Inability to care for self Problems Identified/Issues Discussed: No new events. Patient continues to have poor insight and judgment. He continues to refuse to [facility] to the [facility] although he does not express any acute paranoid ideations. He believes he is too high functioning to return to the penitentiary and believes he can live in the community without assistance. He can not explain his current medical conditions or which medications he takes. He believes that he can be discharged from the hospital and that he can find a place on his own, despite his physical disability, lack of access to financial resources and lack of social support. Patient does not have capacity to make medical decisions at this time. Medication Change: No Medical Record Reviewed: Yes Consults ordered or reviewed: Medicine consult, Neurology consult, Podiatry consult Mental Status Examination - Cognitive Function Orientation: Person, Place, Situation, Time Memory: Impaired Attention: WNL Concentration: WNL Association: WNL Fund of Knowledge: WNL Decription of patient's judgement and insights: Poor I/J - Mood Mood: Neutral - Affect Affect: Broad - Speech Speech: Appropriate - Formal Thought Process Formal Thought Process: Loosening of associations Psychotic Thoughts and Behaviors: Denies AH/VH/paranoia/delusions - Suicidal Ideation Suicidal Ideation: No - Homicidal Ideation Homicidal Ideation: No Goal/Treatment Plan - Goal/Treatment Plan Need for Continued Stay: Severe functional impairment Progress Toward Problem(s) and Goals/Treatment Plan: Schizoaffective Disorder -Individual and group therapy -Medicine consult, Neurology consult, Podiatry consult -Continue Zyprexa 20 mg PO HS -Continue Prozac 20 mg PO Daily -Disposition planning- guardianship initiated Estimated Date of D/C: 05/31/18
[2018-04-18] MEDS: Ammonium Lactate 12% Cream (140 g) TOP SCH (08:34)
[2018-04-18] MEDS: Multivitamin With Minerals Tab PO SCH (08:36)
[2018-04-19] MEDS: Ammonium Lactate 12% Cream (140 g) TOP SCH (09:28)
[2018-04-19] MEDS: Multivitamin With Minerals Tab PO SCH (09:29)
--- NOTE | 2018-04-19 10:01 | PCM.PYCHPN ---
Psychiatric Progress Note - Psychiatric Progress Note Patient seen today, length of contact: Pt evaluated, case discussed w/ team, chart reviewed Patient Chief Complaint: Inability to care for self Problems Identified/Issues Discussed: No new events overnight. Patient continues to have poor insight and judgment. He can not explain his current medical conditions or which medications he takes. He believes that he can be discharged from the hospital and that he can find a place on his own, despite his physical disability, lack of access to financial resources and lack of social support. Patient does not have capacity to make medical decisions at this time. Medication Change: No Medical Record Reviewed: Yes Consults ordered or reviewed: Medicine consult, Neurology consult, Podiatry consult Mental Status Examination - Cognitive Function Orientation: Person, Place, Situation, Time Memory: Impaired Attention: WNL Concentration: WNL Association: WNL Fund of Knowledge: WN Decription of patient's judgement and insights: Poor I/J - Mood Mood: Neutral - Affect Affect: Broad - Speech Speech: Appropriate - Formal Thought Process Formal Thought Process: Loosening of associations Psychotic Thoughts and Behaviors: Denies AH/VH/paranoia/delusions - Suicidal Ideation Suicidal Ideation: No - Homicidal Ideation Homicidal Ideation: No Goal/Treatment Plan - Goal/Treatment Plan Need for Continued Stay: Severe functional impairment Progress Toward Problem(s) and Goals/Treatment Plan: Schizoaffective Disorder -Individual and group therapy -Medicine consult, Neurology consult, Podiatry consult -Continue Zyprexa 20 mg PO HS -Continue Prozac 20 mg PO Daily -Disposition planning- guardianship initiated Estimated Date of D/C: 05/31/18
[2018-04-20] MEDS: Multivitamin With Minerals Tab PO SCH (08:52)
[2018-04-20] MEDS: Ammonium Lactate 12% Cream (140 g) TOP SCH (08:53)
--- NOTE | 2018-04-20 09:36 | PCM.PYCHPN ---
Psychiatric Progress Note - Psychiatric Progress Note Patient seen today, length of contact: Pt evaluated, case discussed w/ team, chart reviewed Patient Chief Complaint: I AM listening to music Problems Identified/Issues Discussed: pt evaluated in day room, reported mood fine, affect constricted concrete thought process, no reported side effects of medications, denied command hallucinations, denied suicidal or homicidal ideation DSM 5 Symptoms Update: SCHIZOPHRENIA Medication Change: No Medical Record Reviewed: Yes Mental Status Examination - Cognitive Function Orientation: Person, Place, Situation, Time Memory: Impaired Attention: WNL Concentration: WNL Association: WNL Fund of Knowledge: WNL - Mood Mood: Neutral - Affect Affect: Broad - Speech Speech: Appropriate - Formal Thought Process Formal Thought Process: Loosening of associations - Suicidal Ideation Suicidal Ideation: No - Homicidal Ideation Homicidal Ideation: No Goal/Treatment Plan - Goal/Treatment Plan Need for Continued Stay: Severe functional impairment Progress Toward Problem(s) and Goals/Treatment Plan: continue current management cbt group and supportive therapy Estimated Date of D/C: 05/31/18
[2018-04-21] MEDS: Ammonium Lactate 12% Cream (140 g) TOP SCH (08:41)
[2018-04-21] MEDS: Multivitamin With Minerals Tab PO SCH (08:43)
--- NOTE | 2018-04-21 14:12 | PCM.PYCHPN ---
Psychiatric Progress Note - Psychiatric Progress Note Patient seen today, length of contact: Pt evaluated, case discussed w/ team, chart reviewed Patient Chief Complaint: I like the beat Problems Identified/Issues Discussed: pt evaluated in day room, reported mood fine, affect constricted concrete thought process, no reported side effects of medications, denied command hallucinations, denied suicidal or homicidal ideation DSM 5 Symptoms Update: schizophrenia Medication Change: No Medical Record Reviewed: Yes Mental Status Examination - Cognitive Function Orientation: Person, Place, Situation, Time Memory: Impaired Attention: WNL Concentration: WNL Association: WNL Fund of Knowledge: WNL - Mood Mood: Neutral - Affect Affect: Broad - Speech Speech: Appropriate - Formal Thought Process Formal Thought Process: Loosening of associations - Suicidal Ideation Suicidal Ideation: No - Homicidal Ideation Homicidal Ideation: No Goal/Treatment Plan - Goal/Treatment Plan Need for Continued Stay: Severe functional impairment Progress Toward Problem(s) and Goals/Treatment Plan: continue current management cbt group and supportive therapy Estimated Date of D/C: 05/31/18
--- NOTE | 2018-04-21 14:14 | PCM.PYCHPN ---
Psychiatric Progress Note - Psychiatric Progress Note Patient seen today, length of contact: Pt evaluated, case discussed w/ team, chart reviewed Patient Chief Complaint: I like the beat Problems Identified/Issues Discussed: pt evaluated in day room, reported mood fine, affect constricted concrete thought process, no reported side effects of medications, denied command hallucinations, denied suicidal or homicidal ideation Medication Change: No Medical Record Reviewed: Yes Mental Status Examination - Cognitive Function Orientation: Person, Place, Situation, Time Memory: Impaired Attention: WNL Concentration: WNL Association: WNL Fund of Knowledge: WNL - Mood Mood: Neutral - Affect Affect: Broad - Speech Speech: Appropriate - Formal Thought Process Formal Thought Process: Loosening of associations - Suicidal Ideation Suicidal Ideation: No - Homicidal Ideation Homicidal Ideation: No Goal/Treatment Plan - Goal/Treatment Plan Need for Continued Stay: Severe functional impairment Progress Toward Problem(s) and Goals/Treatment Plan: continue current management cbt group and supportive therapy Estimated Date of D/C: 05/31/18
[2018-04-21] MEDS: guaiFENesin DM 200 mg-20 mg/10 ml UD PO PRN (17:48)
[2018-04-22] MEDS: Ammonium Lactate 12% Cream (140 g) TOP SCH (08:56)
[2018-04-22] MEDS: Multivitamin With Minerals Tab PO SCH (08:57)
--- NOTE | 2018-04-22 09:27 | PCM.PYCHPN ---
Psychiatric Progress Note - Psychiatric Progress Note Patient seen today, length of contact: Pt evaluated, case discussed w/ team, chart reviewed Patient Chief Complaint: Inability to care for self Problems Identified/Issues Discussed: No new events over the weekend. Patient continues to have poor insight and judgment. He can not explain his current medical conditions or which medications he takes. He believes that he can be discharged from the hospital and that he can find a place on his own, despite his physical disability, lack of access to financial resources and lack of social support. Patient does not have capacity to make medical decisions at this time. Medication Change: No Medical Record Reviewed: Yes Consults ordered or reviewed: Medicine consult, Neurology consult, Podiatry consult Mental Status Examination - Cognitive Function Orientation: Person, Place, Situation, Time Memory: Impaired Attention: WNL Concentration: WNL Association: WNL Fund of Knowledge: WNL Decription of patient's judgement and insights: Poor I/J - Mood Mood: Neutral - Affect Affect: Broad - Speech Speech: Appropriate - Formal Thought Process Formal Thought Process: Loosening of associations Psychotic Thoughts and Behaviors: Denies AH/VH/paranoia - Suicidal Ideation Suicidal Ideation: No - Homicidal Ideation Homicidal Ideation: No Goal/Treatment Plan - Goal/Treatment Plan Need for Continued Stay: Severe functional impairment Progress Toward Problem(s) and Goals/Treatment Plan: Schizoaffective Disorder -Individual and group therapy -Medicine consult, Neurology consult, Podiatry consult -Continue Zyprexa 20 mg PO HS -Continue Prozac 20 mg PO Daily -Disposition planning- guardianship initiated Estimated Date of D/C: 05/31/18
[2018-04-22 11:53] VITALS: BMI 27.5
[2018-04-22] MEDS: guaiFENesin DM 200 mg-20 mg/10 ml UD PO PRN (17:33)
[2018-04-23] MEDS: Ammonium Lactate 12% Cream (140 g) TOP SCH (08:26)
[2018-04-23] MEDS: Multivitamin With Minerals Tab PO SCH (08:26)
[2018-04-23] MEDS: guaiFENesin DM 200 mg-20 mg/10 ml UD PO PRN ×2 (08:31→16:35)
[2018-04-24] MEDS: Ammonium Lactate 12% Cream (140 g) TOP SCH (08:23)
[2018-04-24] MEDS: guaiFENesin DM 200 mg-20 mg/10 ml UD PO PRN (08:23)
[2018-04-24] MEDS: Multivitamin With Minerals Tab PO SCH (12:50)
[2018-04-25] MEDS: Ammonium Lactate 12% Cream (140 g) TOP SCH (09:30)
[2018-04-25] MEDS: Multivitamin With Minerals Tab PO SCH (09:31)
[2018-04-26] MEDS: Ammonium Lactate 12% Cream (140 g) TOP SCH (08:49)
[2018-04-26] MEDS: Multivitamin With Minerals Tab PO SCH (08:49)
[2018-04-27] MEDS: Ammonium Lactate 12% Cream (140 g) TOP SCH (08:32)
[2018-04-27] MEDS: guaiFENesin DM 200 mg-20 mg/10 ml UD PO PRN (08:32)
[2018-04-27] MEDS: Multivitamin With Minerals Tab PO SCH (08:34)
[2018-04-28] MEDS: Ammonium Lactate 12% Cream (140 g) TOP SCH (09:02)
[2018-04-28] MEDS: Multivitamin With Minerals Tab PO SCH (09:04)
[2018-04-29] MEDS: Ammonium Lactate 12% Cream (140 g) TOP SCH (08:34)
[2018-04-29] MEDS: Multivitamin With Minerals Tab PO SCH (08:35)
--- NOTE | 2018-04-30 08:05 | PCM.PYCHPN ---
Psychiatric Progress Note - Psychiatric Progress Note Patient seen today, length of contact: Pt evaluated, case discussed w/ team, chart reviewed Patient Chief Complaint: Inability to care for self Problems Identified/Issues Discussed: No new events. Patient continues to have poor insight and judgment. He can not explain his current medical conditions or which medications he takes. He believes that he can be discharged from the hospital and that he can find a keya ce on his own, despite his physical disability, lack of access to financial resources and lack of social support. Patient does not have capacity to make medical decisions at this time. Medication Change: No Medical Record Reviewed: Yes Consults ordered or reviewed: Medicine consult, Neurology consult, Podiatry consult Mental Status Examination - Cognitive Function Orientation: Person, Place, Situation, Time Memory: Impaired Attention: WNL Concentration: WNL Association: WNL Fund of Knowledge: WN Decription of patient's judgement and insights: Poor I/J - Mood Mood: Neutral - Affect Affect: Broad - Speech Speech: Appropriate - Formal Thought Process Formal Thought Process: Loosening of associations Psychotic Thoughts and Behaviors: Denies AH/VH/paranoia - Suicidal Ideation Suicidal Ideation: No - Homicidal Ideation Homicidal Ideation: No Goal/Treatment Plan - Goal/Treatment Plan Need for Continued Stay: Severe functional impairment Progress Toward Problem(s) and Goals/Treatment Plan: Schizoaffective Disorder -Individual and group therapy -Medicine consult, Neurology consult, Podiatry consult -Continue Zyprexa 20 mg PO HS -Continue Prozac 20 mg PO Daily -Disposition planning- guardianship process initiated Estimated Date of D/C: 05/31/18
[2018-04-30] MEDS: Multivitamin With Minerals Tab PO SCH (08:37)
[2018-04-30] MEDS: Ammonium Lactate 12% Cream (140 g) TOP SCH (08:38)
--- NOTE | 2018-05-01 08:08 | PCM.PYCHPN ---
Psychiatric Progress Note - Psychiatric Progress Note Patient seen today, length of contact: Pt evaluated, case discussed w/ team, chart reviewed Patient Chief Complaint: Inability to care for self Problems Identified/Issues Discussed: No new events overnight. Patient continues to have poor insight and judgment. He can not explain his current medical conditions or which medications he takes. He believes that he can be discharged from the hospital and that he can find a place on his own, despite his physical disability, lack of access to financial resources and lack of social support. Patient does not have capacity to make medical decisions at this time. Medication Change: No Medical Record Reviewed: Yes Consults ordered or reviewed: Medicine consult, Neurology consult, Podiatry consult Mental Status Examination - Cognitive Function Orientation: Person, Place, Situation, Time Memory: Impaired Attention: WNL Concentration: WNL Association: WNL Fund of Knowledge: WN Decription of patient's judgement and insights: Poor I/J - Mood Mood: Neutral - Affect Affect: Broad - Speech Speech: Appropriate - Formal Thought Process Formal Thought Process: Loosening of associations Psychotic Thoughts and Behaviors: Denies AH/VH/paranoia - Suicidal Ideation Suicidal Ideation: No - Homicidal Ideation Homicidal Ideation: No Goal/Treatment Plan - Goal/Treatment Plan Need for Continued Stay: Severe functional impairment Progress Toward Problem(s) and Goals/Treatment Plan: Schizoaffective Disorder -Individual and group therapy -Medicine consult, Neurology consult, Podiatry consult -Continue Zyprexa 20 mg PO HS -Continue Prozac 20 mg PO Daily -Disposition planning- guardianship process initiated Estimated Date of D/C: 05/31/18
[2018-05-01] MEDS: Ammonium Lactate 12% Cream (140 g) TOP SCH (08:38)
[2018-05-01] MEDS: Multivitamin With Minerals Tab PO SCH (08:38)
[2018-05-02] MEDS: Ammonium Lactate 12% Cream (140 g) TOP SCH (08:47)
[2018-05-02] MEDS: Multivitamin With Minerals Tab PO SCH (08:48)
--- NOTE | 2018-05-02 12:57 | PCM.BM ---
Treatment Plan Problems - Problems identified on initial assessmt Delusions Date Initiated: 02/19/18 Time Initiated: 00:36 Assessment reference: NA Status: Active Medication nonadherence Date Initiated: 02/19/18 Time Initiated: 00:37 Assessment reference: NA Status: Active Agitated/Aggressive behavior Time Initiated: 11:35 Treatment assets and liabiliti Patient Assests: cooperative, negotiates basic needs Patient Liabilities: poor support system, medical problems - Milieu Protocol Maintain good personal hygiene: daily Encourage regular showers, daily Remind patient to perform daily oral care, daily Assist patient to perform ADL's Conduct patient checks and document Observation sheet: Q15 minutes Maintain personal safety: every shift Educate patient to report safety concerns to staff, every shift Monitor environment for contraband/sharps Medication safety: Monitor for expected outcome, potential side effects: every shift, Assess barriers to learning: every shift, Assess readiness for medication education: every shift Milieu Narrative: Schizoaffective Disorder -Individual and group therapy -Medicine consult, Neurology consult, Podiatry consult -Continue Zyprexa 20 mg PO HS -Continue Prozac 20 mg PO Daily -Disposition planning- guardianship process initiated Family Contact Family involvement: Fammaura/CYNTHIA not involved Family contact: Telephone contact initiated by staff Family contact name: Zhane - Friend Family contacted how many times per week?: 2 Family contact comment: Instructor Weaving spoke with pt's support and former homemaker, Zhane [phone], for collateral and provide Zhane with visiting hours. Zhane reported that she is pt's only support and he does not have friends or family. She has known pt for four years and was his homemaker for 2 of them. Zhane reported that last time she visited pt at [facility] pt had packed all his belongings and wanted to leave the facility. - Goals for Treatment Patient goals for treatment: Pt reported he wants to be referred to a snf and not return to [facility]. Discharge/Continuing Care - Education Needs Education Needs: Patient Medication, Patient Diagnosis/Disease Process, Patient Coping Skills, Patient Placement options, Patient Community resources, Patient Aftercare Safety Plan - Discharge Discharge Criteria: Tolerates medication w/o severe side effects, Free of paranoid thoughts, Free of agitation, Normal sleep pattern, Ability to care for self, Reduction of target symptoms Discharge to:: Other (Pt is pending guardianship. Unclear if pt will be returning to a facility or home with services. Pt martinez snot have a safe place to return too and is unable to care for himself at this time. Pt would benefit from 24 hour supervision and care. ) - Treatment Team Participation Patient/Family/SO Statement: Schizoaffective Disorder -Individual and group therapy -Medicine consult, Neurology consult, Podiatry consult -Continue Zyprexa 20 mg PO HS -Continue Prozac 20 mg PO Daily -Disposition planning- guardianship process initiated Discussed with Family/SO: Yes Was Patient/Family/SO present at Treatment Team Meeting: Yes Treatment Plan Review - Problem Delusions Date Initiated: 02/18/18 Time Initiated: 00:36 Progress toward outcomes: improved Medication nonadherence Date Initiated: 02/18/18 Time Initiated: 00:37 Progress toward outcomes: resolved (Pt is compliant with prescribed medications.) Agitated/Aggressive behavior Date Initiated: 04/15/18 Time Initiated: 11:35 Progress toward outcomes: unchanged (Pt is verbally abusive towards other patients. Pt observed to provoke altercations with other residents. Pt presents with poor insight and rational when confronted about bx on the unit. Pt believes that his bx towards other residents is appropriate.) - Discharge / Continuing Care Discharge to:: [facility]: Other Health Needs: Other (Pt informed that court date is formally scheduled for June 13. Pt offered no other questions or concerns at this time. )
[2018-05-03] MEDS: Magnesium Hydroxide Susp 30 ml UD PO PRN (02:39)
--- NOTE | 2018-05-03 08:10 | PCM.PYCHPN ---
Psychiatric Progress Note - Psychiatric Progress Note Patient seen today, length of contact: Pt evaluated, case discussed w/ team, chart reviewed Patient Chief Complaint: Inability to care for self Problems Identified/Issues Discussed: No new events. Patient continues to have poor insight and judgment. He can not explain his current medical conditions or which medications he takes. He believes that he can be discharged from the hospital and that he can find a keya ce on his own, despite his physical disability, lack of access to financial resources and lack of social support. Patient does not have capacity to make medical decisions at this time. Medication Change: No Medical Record Reviewed: Yes Consults ordered or reviewed: Medicine consult, Neurology consult, Podiatry consult Mental Status Examination - Cognitive Function Orientation: Person, Place, Situation, Time Memory: Impaired Attention: WNL Concentration: WNL Association: Loose Fund of Knowledge: Poor Decription of patient's judgement and insights: Poor I/J - Mood Mood: Neutral - Affect Affect: Broad - Speech Speech: Appropriate - Formal Thought Process Formal Thought Process: Loosening of associations Psychotic Thoughts and Behaviors: Denies AH/VH/paranoia - Suicidal Ideation Suicidal Ideation: No - Homicidal Ideation Homicidal Ideation: No Goal/Treatment Plan - Goal/Treatment Plan Need for Continued Stay: Severe functional impairment Progress Toward Problem(s) and Goals/Treatment Plan: Schizoaffective Disorder -Individual and group therapy -Medicine consult, Neurology consult, Podiatry consult -Continue Zyprexa 20 mg PO HS -Continue Prozac 20 mg PO Daily -Disposition planning- guardianship process initiated Estimated Date of D/C: 06/19/18
[2018-05-03] MEDS: Ammonium Lactate 12% Cream (140 g) TOP SCH (08:29)
[2018-05-03] MEDS: Multivitamin With Minerals Tab PO SCH (08:31)
[2018-05-04] MEDS: Ammonium Lactate 12% Cream (140 g) TOP SCH (09:00)
[2018-05-04] MEDS: Multivitamin With Minerals Tab PO SCH (09:04)
[2018-05-04] MEDS: Alum-Mag Hydrox-Simethicone Susp (30 mL) PO PRN (12:40)
--- NOTE | 2018-05-04 13:24 | PCM.PYCHPN ---
Psychiatric Progress Note - Psychiatric Progress Note Patient seen today, length of contact: Pt evaluated, case discussed w/ team, chart reviewed Patient Chief Complaint: seen in milieu, does not believe he is ill , believes that he can find own placement, does not believe he needs snf, staff report pt has been taking medications cooperative with medications, somewhat less loud per staff, does speak with loud voice at times, ? hard of hearing Problems Identified/Issues Discussed: alteration in mood in cognition self pending guardianship? does not want to go back to snf Medical Problems: per chart Diagnostic Results: per psychiatry per medicine per nursing per licensed master social worker per recreational worker DSM 5 Symptoms Update: appears baseline cognitive impairment, poor insight and judgment, requires total care and structure Medication Change: No Medical Record Reviewed: Yes Consults ordered or reviewed: deferred Mental Status Examination - Cognitive Function Orientation: Person, Place, Situation, Time Memory: Impaired Attention: WNL Concentration: WNL Association: Loose Fund of Knowledge: Poor - Mood Mood: Neutral - Affect Affect: Broad - Speech Speech: Appropriate - Formal Thought Process Formal Thought Process: Loosening of associations - Suicidal Ideation Suicidal Ideation: No - Homicidal Ideation Homicidal Ideation: No Goal/Treatment Plan - Goal/Treatment Plan Need for Continued Stay: Severe functional impairment Progress Toward Problem(s) and Goals/Treatment Plan: inpt milieu adjust med per status vital signs and clinical observation per clinical status discharge planning in progress working related to possible guardianship Estimated Date of D/C: 06/19/18 - Smoking Cessation Smoking Cessation Initiated: No Reason for not providing: defers
[2018-05-05] MEDS: Ammonium Lactate 12% Cream (140 g) TOP SCH (08:30)
[2018-05-05] MEDS: Multivitamin With Minerals Tab PO SCH (08:31)
--- NOTE | 2018-05-05 15:25 | PCM.PYCHPN ---
Psychiatric Progress Note - Psychiatric Progress Note Patient seen today, length of contact: Pt evaluated, case discussed w/ team, chart reviewed Patient Chief Complaint: seen in milieu, does not believe he is ill , believes that he can find own placement, does not believe he needs [facility], staff report pt has been taking medications cooperative with medications, somewhat less loud per staff, does speak with loud voice at times, ? hard of hearing. notes reflect interaction between staff, court system. pt has been adherent with treatment, seen about unit, requires total care. Problems Identified/Issues Discussed: alteration in mood in cognition self pending guardianship? does not want to go back to [facility] Medical Problems: per chart Diagnostic Results: per psychiatry per medicine per nursing per vp digital marketing social media and crm per recreational worker DSM 5 Symptoms Update: alteration in cognition alteration in self care Medication Change: No Medical Record Reviewed: Yes Consults ordered or reviewed: pt seen by hospitalist Mental Status Examination - Cognitive Function Orientation: Person, Place, Situation, Time Memory: Impaired Attention: WNL Concentration: WNL Association: Loose Fund of Knowledge: Poor Decription of patient's judgement and insights: poor - Mood Mood: Neutral - Affect Affect: Broad - Speech Speech: Appropriate - Formal Thought Process Formal Thought Process: Loosening of associations - Suicidal Ideation Suicidal Ideation: No - Homicidal Ideation Homicidal Ideation: No Goal/Treatment Plan - Goal/Treatment Plan Need for Continued Stay: Severe functional impairment Progress Toward Problem(s) and Goals/Treatment Plan: inpt milieu adjust med per status vital signs and clinical observation per clinical status discharge planning in progress team has been in communication with court system related to guardianship Estimated Date of D/C: 06/19/18 - Smoking Cessation Smoking Cessation Initiated: No Reason for not providing: pt defers
[2018-05-06] MEDS: Ammonium Lactate 12% Cream (140 g) TOP SCH (08:08)
[2018-05-06] MEDS: Multivitamin With Minerals Tab PO SCH (08:11)
--- NOTE | 2018-05-06 09:15 | PCM.PYCHPN ---
Psychiatric Progress Note - Psychiatric Progress Note Patient seen today, length of contact: Pt evaluated, case discussed w/ team, chart reviewed Patient Chief Complaint: Inability to care for self Problems Identified/Issues Discussed: No new events over the weekend. Patient continues to have poor insight and judgment. He can not explain his current medical conditions or which medications he takes. He believes that he can be discharged from the hospital and that he can find a place on his own, despite his physical disability, lack of access to financial resources and lack of social support. Patient does not have capacity to make medical decisions at this time. Medication Change: No Medical Record Reviewed: Yes Consults ordered or reviewed: Medicine consult, Neurology consult, Podiatry consult Mental Status Examination - Cognitive Function Orientation: Person, Place, Situation, Time Memory: Impaired Attention: WNL Concentration: WNL Association: Loose Fund of Knowledge: Poor Decription of patient's judgement and insights: Poor I/J - Mood Mood: Neutral - Affect Affect: Broad - Speech Speech: Appropriate - Formal Thought Process Formal Thought Process: Loosening of associations Psychotic Thoughts and Behaviors: Denies AH/VH - Suicidal Ideation Suicidal Ideation: No - Homicidal Ideation Homicidal Ideation: No Goal/Treatment Plan - Goal/Treatment Plan Need for Continued Stay: Severe functional impairment Progress Toward Problem(s) and Goals/Treatment Plan: Schizoaffective Disorder -Individual and group therapy -Medicine consult, Neurology consult, Podiatry consult -Continue Zyprexa 20 mg PO HS -Continue Prozac 20 mg PO Daily -Disposition planning- guardianship process initiated Estimated Date of D/C: 06/19/18
[2018-05-07] MEDS: Ammonium Lactate 12% Cream (140 g) TOP SCH (08:20)
[2018-05-07] MEDS: Multivitamin With Minerals Tab PO SCH (08:22)
[2018-05-08] MEDS: Multivitamin With Minerals Tab PO SCH (08:20)
[2018-05-08] MEDS: Ammonium Lactate 12% Cream (140 g) TOP SCH (08:22)
--- NOTE | 2018-05-08 11:53 | PCM.BM ---
Treatment Plan Problems - Problems identified on initial assessmt Delusions Date Initiated: 02/19/18 Time Initiated: 00:36 Assessment reference: NA Status: Active Medication nonadherence Date Initiated: 02/19/18 Time Initiated: 00:37 Assessment reference: NA Status: Active Agitated/Aggressive behavior Time Initiated: 11:35 Treatment assets and liabiliti Patient Assests: cooperative, negotiates basic needs Patient Liabilities: poor support system, medical problems - Milieu Protocol Maintain good personal hygiene: daily Encourage regular showers, daily Remind patient to perform daily oral care, daily Assist patient to perform ADL's Conduct patient checks and document Observation sheet: Q15 minutes Maintain personal safety: every shift Educate patient to report safety concerns to staff, every shift Monitor environment for contraband/sharps Medication safety: Monitor for expected outcome, potential side effects: every shift, Assess barriers to learning: every shift, Assess readiness for medication education: every shift Milieu Narrative: Schizoaffective Disorder -Individual and group therapy -Medicine consult, Neurology consult, Podiatry consult -Continue Zyprexa 20 mg PO HS -Continue Prozac 20 mg PO Daily -Disposition planning- guardianship process initiated Family Contact Family involvement: Fammaura/CYNTHIA not involved Family contact: Telephone contact initiated by staff Family contact name: Zhane - Friend Family contacted how many times per week?: 2 Family contact comment: Roll Cutting Operator spoke with pt's support and former homemaker, Zhane [phone], for collateral and provide Zhane with visiting hours. Zhane reported that she is pt's only support and he does not have friends or family. She has known pt for four years and was his homemaker for 2 of them. Zhane reported that last time she visited pt at [place] pt had packed all his belongings and wanted to leave the facility. - Goals for Treatment Patient goals for treatment: Pt reported he wants to be referred to a [facility] and not return to [facility]. Discharge/Continuing Care - Education Needs Education Needs: Patient Medication, Patient Diagnosis/Disease Process, Patient Coping Skills, Patient Placement options, Patient Community resources, Patient Aftercare Safety Plan - Discharge Discharge Criteria: Tolerates medication w/o severe side effects, Free of paranoid thoughts, Free of agitation, Normal sleep pattern, Ability to care for self, Reduction of target symptoms Discharge to:: [facility] - Treatment Team Participation Patient/Family/SO Statement: Schizoaffective Disorder -Individual and group therapy -Medicine consult, Neurology consult, Podiatry consult -Continue Zyprexa 20 mg PO HS -Continue Prozac 20 mg PO Daily -Disposition planning- guardianship process initiated Discussed with Family/SO: Yes Was Patient/Family/SO present at Treatment Team Meeting: Yes Treatment Plan Review - Problem Delusions Date Initiated: 02/18/18 Time Initiated: 00:36 Progress toward outcomes: improved Medication nonadherence Date Initiated: 02/18/18 Time Initiated: 00:37 Progress toward outcomes: resolved (Pt is compliant with prescribed medications.) Agitated/Aggressive behavior Date Initiated: 04/15/18 Time Initiated: 11:35 Progress toward outcomes: unchanged (Pt is verbally abusive towards other patients. Pt observed to provoke altercations with other residents. Pt presents with poor insight and rational when confronted about bx on the unit. Pt believes that his bx towards other residents is appropriate.) - Discharge / Continuing Care Discharge to:: Home, [facility]: Outpatient therapy, Residential treatment Health Needs: Follow up care/test, Medications/Rx, Educational (Pt seen in treatment team for review on 05/08/18. Pt offered no questions at this time and was reinforced that his court date was set for 06/13/18. Pt asked if he could have a portable radio while on the unit and was told that personal electronics were not allowed. Pt did appear paranoid and reported that some patients on the unit do not like him and then made derogatory statements about both [place] and Dominicans. Pt advised not to say things like this as it may offend others. )
[2018-05-09] MEDS: Ammonium Lactate 12% Cream (140 g) TOP SCH (08:34)
[2018-05-09] MEDS: Multivitamin With Minerals Tab PO SCH (08:35)
[2018-05-10] MEDS: Ammonium Lactate 12% Cream (140 g) TOP SCH (08:27)
[2018-05-10] MEDS: Multivitamin With Minerals Tab PO SCH (08:29)
[2018-05-11] MEDS: Ammonium Lactate 12% Cream (140 g) TOP SCH (08:38)
[2018-05-11] MEDS: Multivitamin With Minerals Tab PO SCH (08:39)
--- NOTE | 2018-05-11 13:02 | PCM.PYCHPN ---
Psychiatric Progress Note - Psychiatric Progress Note Patient seen today, length of contact: Pt evaluated, case discussed w/ team, chart reviewed Patient Chief Complaint: I like music Problems Identified/Issues Discussed: pt evaluated in day room, reported mood fine, affect constricted concrete thought process, no reported side effects of medications, denied command hallucinations, denied suicidal or homicidal ideation DSM 5 Symptoms Update: major neurocognitive disorder Medication Change: No Medical Record Reviewed: Yes Mental Status Examination - Cognitive Function Orientation: Person, Place, Situation, Time Memory: Impaired Attention: WNL Concentration: WNL Association: Loose Fund of Knowledge: Poor - Mood Mood: Neutral - Affect Affect: Broad - Speech Speech: Appropriate - Formal Thought Process Formal Thought Process: Loosening of associations - Suicidal Ideation Suicidal Ideation: No - Homicidal Ideation Homicidal Ideation: No Goal/Treatment Plan - Goal/Treatment Plan Need for Continued Stay: Severe functional impairment Progress Toward Problem(s) and Goals/Treatment Plan: continue current management cbt group and supportive therapy Estimated Date of D/C: 06/19/18
[2018-05-12] MEDS: Ammonium Lactate 12% Cream (140 g) TOP SCH (08:09)
[2018-05-12] MEDS: Multivitamin With Minerals Tab PO SCH (08:12)
--- NOTE | 2018-05-12 11:16 | PCM.PYCHPN ---
Psychiatric Progress Note - Psychiatric Progress Note Patient seen today, length of contact: Pt evaluated, case discussed w/ team, chart reviewed Patient Chief Complaint: I am good today Problems Identified/Issues Discussed: pt evaluated in day room, reported mood fine, appropriate affect, concrete thought process, no reported side effects of medications, denied command hallucinations, denied suicidal or homicidal ideation DSM 5 Symptoms Update: major neurocognitive disorder schizophrenia Medication Change: No Medical Record Reviewed: Yes Mental Status Examination - Cognitive Function Orientation: Person, Place, Situation, Time Memory: Impaired Attention: WNL Concentration: WNL Association: Loose Fund of Knowledge: Poor - Mood Mood: Neutral - Affect Affect: Broad - Speech Speech: Appropriate - Formal Thought Process Formal Thought Process: Loosening of associations - Suicidal Ideation Suicidal Ideation: No - Homicidal Ideation Homicidal Ideation: No Goal/Treatment Plan - Goal/Treatment Plan Need for Continued Stay: Severe functional impairment Progress Toward Problem(s) and Goals/Treatment Plan: continue current management group and supportive therapy disposition planning Estimated Date of D/C: 06/19/18
--- NOTE | 2018-05-13 08:29 | PCM.PYCHPN ---
Psychiatric Progress Note - Psychiatric Progress Note Patient seen today, length of contact: Pt evaluated, case discussed w/ team, chart reviewed Patient Chief Complaint: Inability to care for self Problems Identified/Issues Discussed: No new events over the weekend. Patient continues to have poor insight and judgment. He can not explain his current medical conditions or which medications he takes. He believes that he can be discharged from the hospital and that he can find a place on his own, despite his physical disability, lack of access to financial resources and lack of social support. Patient does not have capacity to make medical decisions at this time. Medication Change: No Medical Record Reviewed: Yes Consults ordered or reviewed: Medicine consult, Neurology consult, Podiatry consult Mental Status Examination - Cognitive Function Orientation: Person, Place, Situation, Time Memory: Impaired Attention: WNL Concentration: WNL Association: Loose Fund of Knowledge: Poor Decription of patient's judgement and insights: Chronic Poor I/J - Mood Mood: Neutral - Affect Affect: Broad - Speech Speech: Appropriate - Formal Thought Process Formal Thought Process: Loosening of associations Psychotic Thoughts and Behaviors: Denies AH/VH/paranoia - Suicidal Ideation Suicidal Ideation: No - Homicidal Ideation Homicidal Ideation: No Goal/Treatment Plan - Goal/Treatment Plan Need for Continued Stay: Severe functional impairment Progress Toward Problem(s) and Goals/Treatment Plan: Schizoaffective Disorder; Major Neurocognitive Impairment -Individual and group therapy -Medicine consult, Neurology consult, Podiatry consult -Continue Zyprexa 20 mg PO HS -Continue Prozac 20 mg PO Daily -Disposition planning- guardianship process initiated Estimated Date of D/C: 06/19/18
[2018-05-13] MEDS: Multivitamin With Minerals Tab PO SCH (08:41)
[2018-05-13] MEDS: Ammonium Lactate 12% Cream (140 g) TOP SCH (08:44)
--- NOTE | 2018-05-14 07:58 | PCM.PYCHPN ---
Psychiatric Progress Note - Psychiatric Progress Note Patient seen today, length of contact: Pt evaluated, case discussed w/ team, chart reviewed Patient Chief Complaint: Inability to care for self Problems Identified/Issues Discussed: No new events. Patient continues to have poor insight and judgment. He can not explain his current medical conditions or which medications he takes. He believes that he can be discharged from the hospital and that he can find a keya ce on his own, despite his physical disability, lack of access to financial resources and lack of social support. Patient does not have capacity to make medical decisions at this time. Medication Change: No Medical Record Reviewed: Yes Consults ordered or reviewed: Medicine consult, Neurology consult, Podiatry consult Mental Status Examination - Cognitive Function Orientation: Person, Place, Situation, Time Memory: Impaired Attention: WNL Concentration: WNL Association: Loose Fund of Knowledge: Poor Decription of patient's judgement and insights: Chronic Poor I/J - Mood Mood: Neutral - Affect Affect: Broad - Speech Speech: Appropriate - Formal Thought Process Formal Thought Process: Loosening of associations Psychotic Thoughts and Behaviors: Denies AH/VH/paranoia - Suicidal Ideation Suicidal Ideation: No - Homicidal Ideation Homicidal Ideation: No Goal/Treatment Plan - Goal/Treatment Plan Need for Continued Stay: Severe functional impairment Progress Toward Problem(s) and Goals/Treatment Plan: Schizoaffective Disorder; Major Neurocognitive Impairment -Individual and group therapy -Medicine consult, Neurology consult, Podiatry consult -Continue Zyprexa 20 mg PO HS -Continue Prozac 20 mg PO Daily -Disposition planning- guardianship process initiated Estimated Date of D/C: 06/19/18
[2018-05-14] MEDS: Ammonium Lactate 12% Cream (140 g) TOP SCH (08:01)
[2018-05-14] MEDS: Multivitamin With Minerals Tab PO SCH (08:02)
[2018-05-15] MEDS: Ammonium Lactate 12% Cream (140 g) TOP SCH (08:13)
[2018-05-15] MEDS: Multivitamin With Minerals Tab PO SCH (08:13)
--- NOTE | 2018-05-15 09:32 | PCM.PYCHPN ---
Psychiatric Progress Note - Psychiatric Progress Note Patient seen today, length of contact: Pt evaluated, case discussed w/ team, chart reviewed Patient Chief Complaint: Inability to care for self Problems Identified/Issues Discussed: No new events overnight. Patient continues to have poor insight and judgment. He can not explain his current medical conditions or which medications he takes. He believes that he can be discharged from the hospital and that he can find a place on his own, despite his physical disability, lack of access to financial resources and lack of social support. Patient does not have capacity to make medical decisions at this time. Medication Change: No Medical Record Reviewed: Yes Consults ordered or reviewed: Medicine consult, Neurology consult, Podiatry consult Mental Status Examination - Cognitive Function Orientation: Person, Place, Situation, Time Memory: Impaired Association: Loose Fund of Knowledge: Poor Decription of patient's judgement and insights: Chronic Poor I/J - Mood Mood: Neutral - Affect Affect: Broad - Speech Speech: Appropriate - Formal Thought Process Formal Thought Process: Loosening of associations Psychotic Thoughts and Behaviors: Denies AH/VH/paranoia - Suicidal Ideation Suicidal Ideation: No - Homicidal Ideation Homicidal Ideation: No Goal/Treatment Plan - Goal/Treatment Plan Need for Continued Stay: Severe functional impairment Progress Toward Problem(s) and Goals/Treatment Plan: Schizoaffective Disorder; Major Neurocognitive Impairment -Individual and group therapy -Medicine consult, Neurology consult, Podiatry consult -Continue Zyprexa 20 mg PO HS -Continue Prozac 20 mg PO Daily -Disposition planning- guardianship process initiated Estimated Date of D/C: 06/19/18
--- NOTE | 2018-05-15 16:01 | PCM.BM ---
Treatment Plan Problems - Problems identified on initial assessmt Delusions Date Initiated: 02/19/18 Time Initiated: 00:36 Assessment reference: NA Status: Active Medication nonadherence Date Initiated: 02/19/18 Time Initiated: 00:37 Assessment reference: NA Status: Active Agitated/Aggressive behavior Time Initiated: 11:35 Treatment assets and liabiliti Patient Assests: cooperative, negotiates basic needs Patient Liabilities: poor support system, medical problems - Milieu Protocol Maintain good personal hygiene: daily Encourage regular showers, daily Remind patient to perform daily oral care, daily Assist patient to perform ADL's Conduct patient checks and document Observation sheet: Q15 minutes Maintain personal safety: every shift Educate patient to report safety concerns to staff, every shift Monitor environment for contraband/sharps Medication safety: Monitor for expected outcome, potential side effects: every shift, Assess barriers to learning: every shift, Assess readiness for medication education: every shift Milieu Narrative: Schizoaffective Disorder; Major Neurocognitive Impairment -Individual and group therapy -Medicine consult, Neurology consult, Podiatry consult -Continue Zyprexa 20 mg PO HS -Continue Prozac 20 mg PO Daily -Disposition planning- guardianship process initiated Family Contact Family involvement: Sinan/CYNTHIA not involved Family contact: Telephone contact initiated by staff Family contact name: Zhane - Friend Family contacted how many times per week?: 2 Family contact comment: Podopediatrician spoke with pt's support and former homemaker, Zhane [phone], for collateral and provide Zhane with visiting hours. Zhane reported that she is pt's only support and he does not have friends or family. She has known pt for four years and was his homemaker for 2 of them. Zhane reported that last time she visited pt at [facility] pt had packed all his belongings and wanted to leave the facility. - Goals for Treatment Patient goals for treatment: Pt reported he wants to be referred to a skilled nursing and not return to [facility]. Discharge/Continuing Care - Education Needs Education Needs: Patient Medication, Patient Diagnosis/Disease Process, Patient Coping Skills, Patient Placement options, Patient Community resources, Patient Aftercare Safety Plan - Discharge Discharge Criteria: Tolerates medication w/o severe side effects, Free of paranoid thoughts, Free of agitation, Normal sleep pattern, Ability to care for self, Reduction of target symptoms Discharge to:: Home, [facility] - Treatment Team Participation Patient/Family/SO Statement: Schizoaffective Disorder; Major Neurocognitive Impairment -Individual and group therapy -Medicine consult, Neurology consult, Podiatry consult -Continue Zyprexa 20 mg PO HS -Continue Prozac 20 mg PO Daily -Disposition planning- guardianship process initiated Discussed with Family/SO: Yes Was Patient/Family/SO present at Treatment Team Meeting: Yes Treatment Plan Review Family/SO/Caregiver participation: No Additional Comments: Pt seen and discussed in team meeting. Pt's progress and bx on the unit reviewed and discussed. Pt reported feeling "good." Pt continues to require re-direction in regards to his inappropriate comments towards other patients and staff members. Pt continues to present with poor insight and judgment in regards to his care and inappropriateness of being able to reside on his own. Pt's is compliant with medications. Pt attends activity groups. Pt's medications reviewed. Pt is pending guardianship and scheduled for court hearing on June 13, 2018. Roque POTTER to continue to continue to follow case. - Problem Delusions Date Initiated: 02/18/18 Time Initiated: 00:36 Progress toward outcomes: improved Medication nonadherence Date Initiated: 02/18/18 Time Initiated: 00:37 Progress toward outcomes: resolved (Pt is compliant with prescribed medications.) Agitated/Aggressive behavior Date Initiated: 04/15/18 Time Initiated: 11:35 Progress toward outcomes: unchanged (Pt is verbally abusive towards other patients. Pt observed to provoke altercations with other residents. Pt presents with poor insight and rational when confronted about bx on the unit. Pt believes that his bx towards other residents is appropriate.)
[2018-05-16] MEDS: Ammonium Lactate 12% Cream (140 g) TOP SCH (08:52)
[2018-05-16] MEDS: Multivitamin With Minerals Tab PO SCH (08:55)
[2018-05-17] MEDS: Ammonium Lactate 12% Cream (140 g) TOP SCH (09:06)
[2018-05-17] MEDS: Multivitamin With Minerals Tab PO SCH (09:07)
[2018-05-18] MEDS: Multivitamin With Minerals Tab PO SCH (08:20)
[2018-05-18] MEDS: Ammonium Lactate 12% Cream (140 g) TOP SCH (08:22)
--- NOTE | 2018-05-18 09:21 | PCM.PYCHPN ---
Psychiatric Progress Note - Psychiatric Progress Note Patient seen today, length of contact: Pt evaluated, case discussed w/ team, chart reviewed Patient Chief Complaint: pt has not changed in his presentation and still remained with paranoid ideation and remains with poor insight and poor judgement and need further stabilization.pt is less agitated and less anxious with flat affect .pt denies side efects . pt remains cognitively impaired and cant make decision and is waiting for guardianship. Medication Change: No Medical Record Reviewed: Yes Mental Status Examination - Cognitive Function Orientation: Person, Place, Situation, Time Memory: Impaired Association: Loose Fund of Knowledge: Poor - Mood Mood: Neutral - Affect Affect: Broad - Speech Speech: Appropriate - Formal Thought Process Formal Thought Process: Loosening of associations - Suicidal Ideation Suicidal Ideation: No - Homicidal Ideation Homicidal Ideation: No Goal/Treatment Plan - Goal/Treatment Plan Need for Continued Stay: Severe functional impairment Progress Toward Problem(s) and Goals/Treatment Plan: continue meds as regimen . d/c plans as per dr panda and pt waiting for placement through guardianship . Estimated Date of D/C: 06/19/18
[2018-05-19] MEDS: Multivitamin With Minerals Tab PO SCH (08:42)
[2018-05-19] MEDS: Ammonium Lactate 12% Cream (140 g) TOP SCH (08:43)
[2018-05-20] MEDS: Ammonium Lactate 12% Cream (140 g) TOP SCH (08:10)
[2018-05-20] MEDS: Multivitamin With Minerals Tab PO SCH (08:53)
[2018-05-21] MEDS: Ammonium Lactate 12% Cream (140 g) TOP SCH (08:21)
[2018-05-21] MEDS: Multivitamin With Minerals Tab PO SCH (08:23)
--- NOTE | 2018-05-22 07:58 | PCM.PYCHPN ---
Psychiatric Progress Note - Psychiatric Progress Note Patient seen today, length of contact: Pt evaluated, case discussed w/ team, chart reviewed Patient Chief Complaint: Inability to care for self Problems Identified/Issues Discussed: No new events. Patient continues to have poor insight and judgment. He can not explain his current medical conditions or which medications he takes. He believes that he can be discharged from the hospital and that he can find a keya ce on his own, despite his physical disability, lack of access to financial resources and lack of social support. Patient does not have capacity to make medical decisions at this time. Medication Change: No Medical Record Reviewed: Yes Consults ordered or reviewed: Medicine consult, Neurology consult, Podiatry consult Mental Status Examination - Cognitive Function Orientation: Person, Place, Situation, Time Memory: Impaired Association: Loose Fund of Knowledge: Poor Decription of patient's judgement and insights: Chronic poor I/J - Mood Mood: Neutral - Affect Affect: Broad - Speech Speech: Appropriate - Formal Thought Process Formal Thought Process: Loosening of associations Psychotic Thoughts and Behaviors: Denies AH/VH/paranoia - Suicidal Ideation Suicidal Ideation: No - Homicidal Ideation Homicidal Ideation: No Goal/Treatment Plan - Goal/Treatment Plan Need for Continued Stay: Severe functional impairment Progress Toward Problem(s) and Goals/Treatment Plan: Schizoaffective Disorder; Major Neurocognitive Impairment -Individual and group therapy -Medicine consult, Neurology consult, Podiatry consult -Continue Zyprexa 20 mg PO HS -Continue Prozac 20 mg PO Daily -Disposition planning- guardianship process initiated Estimated Date of D/C: 06/19/18
[2018-05-22] MEDS: Multivitamin With Minerals Tab PO SCH (08:42)
[2018-05-22] MEDS: Ammonium Lactate 12% Cream (140 g) TOP SCH (08:45)
--- NOTE | 2018-05-22 12:39 | PCM.BM ---
Treatment Plan Problems - Problems identified on initial assessmt Delusions Date Initiated: 02/19/18 Time Initiated: 00:36 Assessment reference: NA Status: Active Medication nonadherence Date Initiated: 02/19/18 Time Initiated: 00:37 Assessment reference: NA Status: Active Agitated/Aggressive behavior Time Initiated: 11:35 Treatment assets and liabiliti Patient Assests: cooperative, negotiates basic needs Patient Liabilities: poor support system, medical problems - Milieu Protocol Maintain good personal hygiene: daily Encourage regular showers, daily Remind patient to perform daily oral care, daily Assist patient to perform ADL's Conduct patient checks and document Observation sheet: Q15 minutes Maintain personal safety: every shift Educate patient to report safety concerns to staff, every shift Monitor environment for contraband/sharps Medication safety: Monitor for expected outcome, potential side effects: every shift, Assess barriers to learning: every shift, Assess readiness for medication education: every shift Milieu Narrative: Schizoaffective Disorder; Major Neurocognitive Impairment -Individual and group therapy -Medicine consult, Neurology consult, Podiatry consult -Continue Zyprexa 20 mg PO HS -Continue Prozac 20 mg PO Daily -Disposition planning- guardianship process initiated Family Contact Family involvement: Sinan/CYNTHIA not involved Family contact: Telephone contact initiated by staff Family contact name: Zhane - Friend Family contacted how many times per week?: 2 Family contact comment: Firefighting Equipment Specialist spoke with pt's support and former homemaker, Zhane [phone], for collateral and provide Zhane with visiting hours. Zhane reported that she is pt's only support and he does not have friends or family. She has known pt for four years and was his homemaker for 2 of them. Zhane reported that last time she visited pt at [place] pt had packed all his belongings and wanted to leave the facility. - Goals for Treatment Patient goals for treatment: Pt reported he wants to be referred to a [facility] and not return to [facility]. Discharge/Continuing Care - Education Needs Education Needs: Patient Medication, Patient Diagnosis/Disease Process, Patient Coping Skills, Patient Placement options, Patient Community resources, Patient Aftercare Safety Plan - Discharge Discharge Criteria: Tolerates medication w/o severe side effects, Free of paranoid thoughts, Free of agitation, Normal sleep pattern, Ability to care for self, Reduction of target symptoms Discharge to:: Home, Care Home - Treatment Team Participation Patient/Family/SO Statement: Schizoaffective Disorder; Major Neurocognitive Impairment -Individual and group therapy -Medicine consult, Neurology consult, Podiatry consult -Continue Zyprexa 20 mg PO HS -Continue Prozac 20 mg PO Daily -Disposition planning- guardianship process initiated Discussed with Family/SO: Yes Was Patient/Family/SO present at Treatment Team Meeting: Yes Treatment Plan Review - Problem Delusions Date Initiated: 02/18/18 Time Initiated: 00:36 Progress toward outcomes: improved Medication nonadherence Date Initiated: 02/18/18 Time Initiated: 00:37 Progress toward outcomes: resolved (Pt is compliant with prescribed medications.) Agitated/Aggressive behavior Date Initiated: 04/15/18 Time Initiated: 11:35 Progress toward outcomes: unchanged (Pt is verbally abusive towards other patients. Pt observed to provoke altercations with other residents. Pt presents with poor insight and rational when confronted about bx on the unit. Pt believes that his bx towards other residents is appropriate.) - Discharge / Continuing Care Discharge to:: Care Home, Other Behavioral Health Services: Residential treatment Health Needs: Follow up care/test, Doctor appointments (Pt met with in team for review on 05/22/18. Team reinforced court date for guardianship for 06/13/18. Pt had no complaints or questions at this time, but spoke about his last hospitalization in 1974 or 1975. Pt also made note that this is the longest he has ever been hospitalized. ), Medications/Rx
[2018-05-23] MEDS: Ammonium Lactate 12% Cream (140 g) TOP SCH (08:21)
[2018-05-23] MEDS: Multivitamin With Minerals Tab PO SCH (08:23)
[2018-05-24] MEDS: Ammonium Lactate 12% Cream (140 g) TOP SCH (08:55)
[2018-05-24] MEDS: Multivitamin With Minerals Tab PO SCH (08:55)
[2018-05-25] MEDS: Ammonium Lactate 12% Cream (140 g) TOP SCH (08:50)
[2018-05-25] MEDS: Multivitamin With Minerals Tab PO SCH (08:52)
[2018-05-26] MEDS: Multivitamin With Minerals Tab PO SCH (08:35)
[2018-05-26] MEDS: Ammonium Lactate 12% Cream (140 g) TOP SCH (08:38)
[2018-05-27] MEDS: Multivitamin With Minerals Tab PO SCH (08:20)
[2018-05-27] MEDS: Ammonium Lactate 12% Cream (140 g) TOP SCH (08:22)
[2018-05-28] MEDS: Ammonium Lactate 12% Cream (140 g) TOP SCH (08:21)
[2018-05-28] MEDS: Multivitamin With Minerals Tab PO SCH (08:25)
[2018-05-29] MEDS: Ammonium Lactate 12% Cream (140 g) TOP SCH (08:13)
[2018-05-29] MEDS: Multivitamin With Minerals Tab PO SCH (08:17)
--- NOTE | 2018-05-30 07:48 | PCM.BM ---
Treatment Plan Problems - Problems identified on initial assessmt Delusions Date Initiated: 02/19/18 Time Initiated: 00:36 Assessment reference: NA Status: Active Medication nonadherence Date Initiated: 02/19/18 Time Initiated: 00:37 Assessment reference: NA Status: Active Agitated/Aggressive behavior Time Initiated: 11:35 Treatment assets and liabiliti Patient Assests: cooperative, negotiates basic needs Patient Liabilities: poor support system, medical problems - Milieu Protocol Maintain good personal hygiene: daily Encourage regular showers, daily Remind patient to perform daily oral care, daily Assist patient to perform ADL's Conduct patient checks and document Observation sheet: Q15 minutes Maintain personal safety: every shift Educate patient to report safety concerns to staff, every shift Monitor environment for contraband/sharps Medication safety: Monitor for expected outcome, potential side effects: every shift, Assess barriers to learning: every shift, Assess readiness for medication education: every shift Milieu Narrative: Schizoaffective Disorder; Major Neurocognitive Impairment -Individual and group therapy -Medicine consult, Neurology consult, Podiatry consult -Continue Zyprexa 20 mg PO HS -Continue Prozac 20 mg PO Daily -Disposition planning- guardianship process initiated Family Contact Family involvement: Sinan/CYNTHIA not involved Family contact: Telephone contact initiated by staff Family contact name: Zhane - Friend Family contacted how many times per week?: 2 Family contact comment: Photographic Press Screwmaker spoke with pt's support and former homemaker, Zhane [phone], for collateral and provide Zhane with visiting hours. Zhane reported that she is pt's only support and he does not have friends or family. She has known pt for four years and was his homemaker for 2 of them. Zhane reported that last time she visited pt at [place] pt had packed all his belongings and wanted to leave the facility. - Goals for Treatment Patient goals for treatment: Pt reported he wants to be referred to a alf and not return to [facility]. Discharge/Continuing Care - Education Needs Education Needs: Patient Medication, Patient Diagnosis/Disease Process, Patient Coping Skills, Patient Placement options, Patient Community resources, Patient Aftercare Safety Plan - Discharge Discharge Criteria: Tolerates medication w/o severe side effects, Free of paranoid thoughts, Free of agitation, Normal sleep pattern, Ability to care for self, Reduction of target symptoms Discharge to:: Detention, Other - Treatment Team Participation Patient/Family/SO Statement: Schizoaffective Disorder; Major Neurocognitive Impairment -Individual and group therapy -Medicine consult, Neurology consult, Podiatry consult -Continue Zyprexa 20 mg PO HS -Continue Prozac 20 mg PO Daily -Disposition planning- guardianship process initiated Discussed with Family/SO: Yes Was Patient/Family/SO present at Treatment Team Meeting: Yes Treatment Plan Review - Problem Delusions Date Initiated: 02/18/18 Time Initiated: 00:36 Progress toward outcomes: improved Medication nonadherence Date Initiated: 02/18/18 Time Initiated: 00:37 Progress toward outcomes: resolved (Pt is compliant with prescribed medications.) Agitated/Aggressive behavior Date Initiated: 04/15/18 Time Initiated: 11:35 Progress toward outcomes: unchanged (Pt is verbally abusive towards other patients. Pt observed to provoke altercations with other residents. Pt presents with poor insight and rational when confronted about bx on the unit. Pt believes that his bx towards other residents is appropriate.) - Discharge / Continuing Care Discharge to:: Detention Behavioral Health Services: Residential treatment Health Needs: Follow up care/test, Medications/Rx, Educational (Treatment team met with pt for review on 05/29/18 to discuss progress and pending guardianship court date for 06/13/18. Pt offered no complaints of questions in regards to treatment and placement, yet complained that pt's were not given a different, special "[place] meal." )
[2018-05-30] MEDS: Multivitamin With Minerals Tab PO SCH (08:08)
[2018-05-30] MEDS: Ammonium Lactate 12% Cream (140 g) TOP SCH (08:08)
--- NOTE | 2018-05-30 16:41 | PCM.PYCHPN ---
Psychiatric Progress Note - Psychiatric Progress Note Patient seen today, length of contact: Pt evaluated, case discussed w/ team, chart reviewed Patient Chief Complaint: seen in milieu, seated by self, somewhat isolative, rx adherent Problems Identified/Issues Discussed: alteration in mood in cognition self pending guardianship? does not want to go back to [facility] Medical Problems: per chart Diagnostic Results: per psychiatry per medicine per nursing per criminal justice social worker per recreational worker DSM 5 Symptoms Update: alteration in cognition, mood, self care Medication Change: No Medical Record Reviewed: Yes Consults ordered or reviewed: pt seen by hospitalist Mental Status Examination - Cognitive Function Orientation: Person, Place, Situation, Time Memory: Impaired Association: Loose Fund of Knowledge: Poor Decription of patient's judgement and insights: impaired - Mood Mood: Neutral - Affect Affect: Broad - Speech Speech: Appropriate - Formal Thought Process Formal Thought Process: Loosening of associations - Suicidal Ideation Suicidal Ideation: No - Homicidal Ideation Homicidal Ideation: No Goal/Treatment Plan - Goal/Treatment Plan Need for Continued Stay: Severe functional impairment Progress Toward Problem(s) and Goals/Treatment Plan: inpt milieu adjust med per status vital signs and clinical observation per clinical status discharge planning in progress Estimated Date of D/C: 06/07/18 - Smoking Cessation Smoking Cessation Initiated: No Reason for not providing: pt deferred
[2018-05-31] MEDS: Ammonium Lactate 12% Cream (140 g) TOP SCH (08:04)
[2018-05-31] MEDS: Multivitamin With Minerals Tab PO SCH (08:07)
--- NOTE | 2018-05-31 15:30 | PCM.PYCHPN ---
Psychiatric Progress Note - Psychiatric Progress Note Patient seen today, length of contact: Pt evaluated, case discussed w/ team, chart reviewed Patient Chief Complaint: seen in milieu, seated by self, somewhat isolative, rx adherent Problems Identified/Issues Discussed: alteration in mood in cognition self pending guardianship? does not want to go back to residential Medical Problems: per chart Diagnostic Results: per psychiatry per medicine per nursing per social media coordinator per recreational worker DSM 5 Symptoms Update: appears to be reaching baseline-pending ltc placement Medication Change: No Medical Record Reviewed: Yes Consults ordered or reviewed: pt. being seen by hospitalist Mental Status Examination - Cognitive Function Orientation: Person, Place, Situation, Time Memory: Impaired Association: Loose Fund of Knowledge: Poor Decription of patient's judgement and insights: impaired - Mood Mood: Neutral - Affect Affect: Broad - Speech Speech: Appropriate - Formal Thought Process Formal Thought Process: Loosening of associations - Suicidal Ideation Suicidal Ideation: No - Homicidal Ideation Homicidal Ideation: No Goal/Treatment Plan - Goal/Treatment Plan Need for Continued Stay: Severe functional impairment Progress Toward Problem(s) and Goals/Treatment Plan: inpt milieu adjust med per status vital signs and clinical observation per clinical status discharge planning in progress pending ltc placement Estimated Date of D/C: 06/07/18 - Smoking Cessation Smoking Cessation Initiated: No Reason for not providing: pt defers
[2018-06-01] MEDS: Ammonium Lactate 12% Cream (140 g) TOP SCH (08:17)
[2018-06-01] MEDS: Multivitamin With Minerals Tab PO SCH (08:21)
--- NOTE | 2018-06-01 12:31 | PCM.PYCHPN ---
Psychiatric Progress Note - Psychiatric Progress Note Patient seen today, length of contact: Pt evaluated, case discussed w/ team, chart reviewed Patient Chief Complaint: I am good Problems Identified/Issues Discussed: pt evaluated in day room, reported mood fine, appropriate affect, concrete thought process, no reported side effects of medications, denied command hallucinations, denied suicidal or homicidal ideation DSM 5 Symptoms Update: major neurocognitive disorder Medication Change: No Medical Record Reviewed: Yes Mental Status Examination - Cognitive Function Orientation: Person, Place, Situation, Time Memory: Impaired Association: Loose Fund of Knowledge: Poor - Mood Mood: Neutral - Affect Affect: Broad - Speech Speech: Appropriate - Formal Thought Process Formal Thought Process: Loosening of associations - Suicidal Ideation Suicidal Ideation: No - Homicidal Ideation Homicidal Ideation: No Goal/Treatment Plan - Goal/Treatment Plan Need for Continued Stay: Severe functional impairment Progress Toward Problem(s) and Goals/Treatment Plan: continue current management group and supportive therapy disposition planning Estimated Date of D/C: 06/07/18
[2018-06-02] MEDS: Ammonium Lactate 12% Cream (140 g) TOP SCH (08:06)
[2018-06-02] MEDS: Multivitamin With Minerals Tab PO SCH (08:10)
--- NOTE | 2018-06-02 11:08 | PCM.PYCHPN ---
Psychiatric Progress Note - Psychiatric Progress Note Patient seen today, length of contact: Pt evaluated, case discussed w/ team, chart reviewed Patient Chief Complaint: I am alright Problems Identified/Issues Discussed: pt evaluated in day room, reported mood fine, appropriate affect, no behavioral disturbances reported by staff, compliant with tyreatemnt concrete thought process, no reported side effects of medications, denied command hallucinations, denied suicidal or homicidal ideation DSM 5 Symptoms Update: major neurocognitive disorder Medication Change: No Medical Record Reviewed: Yes Mental Status Examination - Cognitive Function Orientation: Person, Place, Situation, Time Memory: Impaired Association: Loose Fund of Knowledge: Poor - Mood Mood: Neutral - Affect Affect: Broad - Speech Speech: Appropriate - Formal Thought Process Formal Thought Process: Loosening of associations - Suicidal Ideation Suicidal Ideation: No - Homicidal Ideation Homicidal Ideation: No Goal/Treatment Plan - Goal/Treatment Plan Need for Continued Stay: Severe functional impairment Progress Toward Problem(s) and Goals/Treatment Plan: continue current management group and supportive therapy disposition planning Estimated Date of D/C: 06/07/18
[2018-06-03] MEDS: Multivitamin With Minerals Tab PO SCH (08:38)
[2018-06-03] MEDS: Ammonium Lactate 12% Cream (140 g) TOP SCH (08:40)
[2018-06-04] MEDS: Ammonium Lactate 12% Cream (140 g) TOP SCH (08:34)
--- NOTE | 2018-06-04 10:02 | PCM.PYCHPN ---
Psychiatric Progress Note - Psychiatric Progress Note Patient seen today, length of contact: Pt evaluated, case discussed w/ team, chart reviewed Patient Chief Complaint: Inability to care for self Problems Identified/Issues Discussed: No new events. Patient continues to have poor insight and judgment. He can not explain his current medical conditions or which medications he takes. He believes that he can be discharged from the hospital and that he can find a keya ce on his own, despite his physical disability, lack of access to financial resources and lack of social support. Patient does not have capacity to make medical decisions at this time. Medication Change: No Medical Record Reviewed: Yes Consults ordered or reviewed: Medicine consult, Neurology consult, Podiatry consult Mental Status Examination - Cognitive Function Orientation: Person, Place, Situation, Time Memory: Impaired Concentration: Poor Association: Loose Fund of Knowledge: Poor Decription of patient's judgement and insights: Poor I/J - Mood Mood: Neutral - Affect Affect: Broad - Speech Speech: Appropriate - Formal Thought Process Formal Thought Process: Loosening of associations Psychotic Thoughts and Behaviors: Denies AH/VH/paranoia/delusions - Suicidal Ideation Suicidal Ideation: No - Homicidal Ideation Homicidal Ideation: No Goal/Treatment Plan - Goal/Treatment Plan Need for Continued Stay: Severe functional impairment Progress Toward Problem(s) and Goals/Treatment Plan: Schizoaffective Disorder; Major Neurocognitive Impairment -Individual and group therapy -Medicine consult, Neurology consult, Podiatry consult -Continue Zyprexa 20 mg PO HS -Continue Prozac 20 mg PO Daily -Disposition planning- guardianship process initiated Estimated Date of D/C: 06/28/18
[2018-06-04] MEDS: Multivitamin With Minerals Tab PO SCH (12:25)
[2018-06-05] MEDS: Ammonium Lactate 12% Cream (140 g) TOP SCH (08:17)
--- NOTE | 2018-06-05 08:17 | PCM.PYCHPN ---
Psychiatric Progress Note - Psychiatric Progress Note Patient seen today, length of contact: Pt evaluated, case discussed w/ team, chart reviewed Patient Chief Complaint: Inability to care for self Problems Identified/Issues Discussed: No new events overnight. Patient continues to have poor insight and judgment. He can not explain his current medical conditions or which medications he takes. He believes that he can be discharged from the hospital and that he can find a place on his own, despite his physical disability, lack of access to financial resources and lack of social support. Patient does not have capacity to make medical decisions at this time. Medication Change: No Medical Record Reviewed: Yes Consults ordered or reviewed: Medicine consult, Neurology consult, Podiatry consult Mental Status Examination - Cognitive Function Orientation: Person, Place, Situation, Time Memory: Impaired Concentration: Poor Association: Loose Fund of Knowledge: Poor Decription of patient's judgement and insights: Poor I/J - Mood Mood: Neutral - Affect Affect: Broad - Speech Speech: Appropriate - Formal Thought Process Formal Thought Process: Loosening of associations Psychotic Thoughts and Behaviors: Denies AH/VH/paranoia/delusions - Suicidal Ideation Suicidal Ideation: No - Homicidal Ideation Homicidal Ideation: No Goal/Treatment Plan - Goal/Treatment Plan Need for Continued Stay: Severe functional impairment Progress Toward Problem(s) and Goals/Treatment Plan: Schizoaffective Disorder; Major Neurocognitive Impairment -Individual and group therapy -Medicine consult, Neurology consult, Podiatry consult -Continue Zyprexa 20 mg PO HS -Continue Prozac 20 mg PO Daily -Disposition planning- guardianship process initiated Estimated Date of D/C: 06/28/18
[2018-06-05] MEDS: Multivitamin With Minerals Tab PO SCH (08:21)
[2018-06-06] MEDS: Multivitamin With Minerals Tab PO SCH (08:12)
[2018-06-06] MEDS: Ammonium Lactate 12% Cream (140 g) TOP SCH (08:13)
--- NOTE | 2018-06-06 10:19 | PCM.BM ---
Treatment Plan Problems - Problems identified on initial assessmt Delusions Date Initiated: 02/19/18 Time Initiated: 00:36 Assessment reference: NA Status: Active Medication nonadherence Date Initiated: 02/19/18 Time Initiated: 00:37 Assessment reference: NA Status: Active Agitated/Aggressive behavior Time Initiated: 11:35 Treatment assets and liabiliti Patient Assests: cooperative, negotiates basic needs Patient Liabilities: poor support system, medical problems - Milieu Protocol Maintain good personal hygiene: daily Encourage regular showers, daily Remind patient to perform daily oral care, daily Assist patient to perform ADL's Conduct patient checks and document Observation sheet: Q15 minutes Maintain personal safety: every shift Educate patient to report safety concerns to staff, every shift Monitor environment for contraband/sharps Medication safety: Monitor for expected outcome, potential side effects: every shift, Assess barriers to learning: every shift, Assess readiness for medication education: every shift Milieu Narrative: Schizoaffective Disorder; Major Neurocognitive Impairment -Individual and group therapy -Medicine consult, Neurology consult, Podiatry consult -Continue Zyprexa 20 mg PO HS -Continue Prozac 20 mg PO Daily -Disposition planning- guardianship process initiated Family Contact Family involvement: Sinan/CYNTHIA not involved Family contact: Telephone contact initiated by staff Family contact name: Zhane - Friend Family contacted how many times per week?: 2 Family contact comment: Customer Response Representative spoke with pt's support and former homemaker, Zhane [phone], for collateral and provide Zhane with visiting hours. Zhane reported that she is pt's only support and he does not have friends or family. She has known pt for four years and was his homemaker for 2 of them. Zhane reported that last time she visited pt at [place] pt had packed all his belongings and wanted to leave the facility. - Goals for Treatment Patient goals for treatment: Pt reported he wants to be referred to a nursing home and not return to [facility]. Discharge/Continuing Care - Education Needs Education Needs: Patient Medication, Patient Diagnosis/Disease Process, Patient Coping Skills, Patient Placement options, Patient Community resources, Patient Aftercare Safety Plan - Discharge Discharge Criteria: Tolerates medication w/o severe side effects, Free of paranoid thoughts, Free of agitation, Normal sleep pattern, Ability to care for self, Reduction of target symptoms Discharge to:: [facility] - Treatment Team Participation Patient/Family/SO Statement: Schizoaffective Disorder; Major Neurocognitive Impairment -Individual and group therapy -Medicine consult, Neurology consult, Podiatry consult -Continue Zyprexa 20 mg PO HS -Continue Prozac 20 mg PO Daily -Disposition planning- guardianship process initiated Discussed with Family/SO: Yes Was Patient/Family/SO present at Treatment Team Meeting: Yes Treatment Plan Review - Problem Delusions Date Initiated: 02/18/18 Time Initiated: 00:36 Progress toward outcomes: improved Medication nonadherence Date Initiated: 02/18/18 Time Initiated: 00:37 Progress toward outcomes: resolved (Pt is compliant with prescribed medications.) Agitated/Aggressive behavior Date Initiated: 04/15/18 Time Initiated: 11:35 Progress toward outcomes: unchanged (Pt is verbally abusive towards other patients. Pt observed to provoke altercations with other residents. Pt presents with poor insight and rational when confronted about bx on the unit. Pt believes that his bx towards other residents is appropriate.) - Discharge / Continuing Care Discharge to:: Home, [facility] Services: Home health care Health Needs: Follow up care/test, Medications/Rx, Educational (Pt seen in treatment team for review on 06/05/18/. Pt still awaiting guardianship court date on 06/13/18. Pt denied questions, concerns and complaints at this time. Pt denied SI/HI and AVT hallucinations. )
[2018-06-07] MEDS: Ammonium Lactate 12% Cream (140 g) TOP SCH (08:12)
[2018-06-07] MEDS: Multivitamin With Minerals Tab PO SCH (08:13)
[2018-06-08] MEDS: Magnesium Hydroxide Susp 30 ml UD PO PRN (02:41)
[2018-06-08] MEDS: Multivitamin With Minerals Tab PO SCH (08:09)
[2018-06-08] MEDS: Ammonium Lactate 12% Cream (140 g) TOP SCH (08:09)
--- NOTE | 2018-06-08 13:43 | PCM.PYCHPN ---
Psychiatric Progress Note - Psychiatric Progress Note Patient seen today, length of contact: Pt evaluated, case discussed w/ team, chart reviewed Patient Chief Complaint: seen in milieu, seated social room watching tv, pt with minimal talking, states hello, I am fine, i dont know what is going why i am here-was reportedly aggressive, attempted to ascertain pt's insight and judgment-is impaired , pt, adherent with medications-per staff-pt requests to see medication coming out of package, pt is in legal process of being evaluated for court appointed legal quardian Problems Identified/Issues Discussed: alteration in mood in cognition self pt in process of court appointed evaluation guardianship does not want to go back to previous -pt is not able to make decisions as has impaired insight and judgment requires structure for both medical and psychiatric care Medical Problems: per chart Diagnostic Results: per psychiatry per medicine per nursing per social and political studies professor per recreational worker DSM 5 Symptoms Update: appears at baseline psychiatrically and cognitive status Medication Change: No Medical Record Reviewed: Yes Consults ordered or reviewed: pt being followed by hospitalist Mental Status Examination - Cognitive Function Orientation: Person, Place, Situation, Time Memory: Impaired Concentration: Poor Association: Loose Fund of Knowledge: Poor Decription of patient's judgement and insights: poor - Mood Mood: Neutral - Affect Affect: Broad - Speech Speech: Appropriate - Formal Thought Process Formal Thought Process: Loosening of associations - Suicidal Ideation Suicidal Ideation: No - Homicidal Ideation Homicidal Ideation: No Goal/Treatment Plan - Goal/Treatment Plan Need for Continued Stay: Severe functional impairment Progress Toward Problem(s) and Goals/Treatment Plan: inpt milieu adjust med per status vital signs and clinical observation per clinical status discharge planning in progress pending guardianship and ltc placement Estimated Date of D/C: 06/28/18 - Smoking Cessation Smoking Cessation Initiated: No Reason for not providing: pt defers
[2018-06-09] MEDS: Ammonium Lactate 12% Cream (140 g) TOP SCH (08:14)
[2018-06-09] MEDS: Multivitamin With Minerals Tab PO SCH (08:14)
--- NOTE | 2018-06-09 19:59 | PCM.PYCHPN ---
Psychiatric Progress Note - Psychiatric Progress Note Patient seen today, length of contact: Pt evaluated, case discussed w/ team, chart reviewed Patient Chief Complaint: pt seen in social area then later redirected to private area-denies any inabilities related to self care-health, finances and domicile-requires total care. rx adherent. Problems Identified/Issues Discussed: alteration in mood in cognition self pt in process of court appointed evaluation guardianship does not want to go back to previous -pt is not able to make decisions as has impaired insight and judgment requires structure for both medical, psychiatric, domicile and financial care pt process of being assigned guardian Medical Problems: per chart Diagnostic Results: per psychiatry per medicine per nursing per adoption social worker per recreational worker DSM 5 Symptoms Update: somewhat less irritable, continued impairment insight and judgment Medication Change: No Medical Record Reviewed: Yes Mental Status Examination - Cognitive Function Orientation: Person, Place, Situation, Time Memory: Impaired Concentration: Poor Association: Loose Fund of Knowledge: Poor Decription of patient's judgement and insights: poor - Mood Mood: Neutral - Affect Affect: Broad - Speech Speech: Appropriate - Formal Thought Process Formal Thought Process: Loosening of associations - Suicidal Ideation Suicidal Ideation: No - Homicidal Ideation Homicidal Ideation: No Goal/Treatment Plan - Goal/Treatment Plan Need for Continued Stay: Severe functional impairment Progress Toward Problem(s) and Goals/Treatment Plan: inpt milieu adjust med per status vital signs and clinical observation per clinical status discharge planning in progress pending guardianship and ltc placement Estimated Date of D/C: 06/28/18 - Smoking Cessation Smoking Cessation Initiated: No Reason for not providing: pt defers
[2018-06-10] MEDS: Multivitamin With Minerals Tab PO SCH (08:28)
[2018-06-10] MEDS: Ammonium Lactate 12% Cream (140 g) TOP SCH (08:30)
--- NOTE | 2018-06-10 09:26 | PCM.PYCHPN ---
Psychiatric Progress Note - Psychiatric Progress Note Patient seen today, length of contact: Pt evaluated, case discussed w/ team, chart reviewed Patient Chief Complaint: Inability to care for self Problems Identified/Issues Discussed: No new events. Patient continues to have poor insight and judgment. He can not explain his current medical conditions or which medications he takes. He believes that he can be discharged from the hospital and that he can find a plac e on his own, despite his physical disability, lack of access to financial resources and lack of social support. Patient does not have capacity to make medical decisions at this time. Medication Change: No Medical Record Reviewed: Yes Consults ordered or reviewed: Medicine consult, Neurology consult, Podiatry consult Mental Status Examination - Cognitive Function Orientation: Person, Place, Situation, Time Memory: Impaired Concentration: Poor Association: Loose Fund of Knowledge: Poor Decription of patient's judgement and insights: Chronic poor I/J - Mood Mood: Neutral - Affect Affect: Broad - Speech Speech: Appropriate - Formal Thought Process Formal Thought Process: Loosening of associations Psychotic Thoughts and Behaviors: Denies AH/VH/paranoia/delusions - Suicidal Ideation Suicidal Ideation: No - Homicidal Ideation Homicidal Ideation: No Goal/Treatment Plan - Goal/Treatment Plan Need for Continued Stay: Severe functional impairment Progress Toward Problem(s) and Goals/Treatment Plan: Schizoaffective Disorder; Major Neurocognitive Impairment -Individual and group therapy -Medicine consult, Neurology consult, Podiatry consult -Continue Zyprexa 20 mg PO HS -Continue Prozac 20 mg PO Daily -Disposition planning- guardianship process initiated Estimated Date of D/C: 06/28/18
[2018-06-11] MEDS: Ammonium Lactate 12% Cream (140 g) TOP SCH (09:01)
[2018-06-11] MEDS: Multivitamin With Minerals Tab PO SCH (09:01)
[2018-06-12] MEDS: Ammonium Lactate 12% Cream (140 g) TOP SCH (08:39)
[2018-06-12] MEDS: Multivitamin With Minerals Tab PO SCH (08:41)
--- NOTE | 2018-06-13 08:28 | PCM.BM ---
Treatment Plan Problems - Problems identified on initial assessmt Delusions Date Initiated: 02/19/18 Time Initiated: 00:36 Assessment reference: NA Status: Active Medication nonadherence Date Initiated: 02/19/18 Time Initiated: 00:37 Assessment reference: NA Status: Active Agitated/Aggressive behavior Time Initiated: 11:35 Treatment assets and liabiliti Patient Assests: cooperative, negotiates basic needs Patient Liabilities: poor support system, medical problems - Milieu Protocol Maintain good personal hygiene: daily Encourage regular showers, daily Remind patient to perform daily oral care, daily Assist patient to perform ADL's Conduct patient checks and document Observation sheet: Q15 minutes Maintain personal safety: every shift Educate patient to report safety concerns to staff, every shift Monitor environment for contraband/sharps Medication safety: Monitor for expected outcome, potential side effects: every shift, Assess barriers to learning: every shift, Assess readiness for medication education: every shift Milieu Narrative: Schizoaffective Disorder; Major Neurocognitive Impairment -Individual and group therapy -Medicine consult, Neurology consult, Podiatry consult -Continue Zyprexa 20 mg PO HS -Continue Prozac 20 mg PO Daily -Disposition planning- guardianship process initiated Family Contact Family involvement: Sinan/CYNTHIA not involved Family contact: Telephone contact initiated by staff Family contact name: Zhane - Friend Family contacted how many times per week?: 2 Family contact comment: Scrap Dealer spoke with pt's support and former homemaker, Zhane [phone], for collateral and provide Zahne with visiting hours. Zhane reported that she is pt's only support and he does not have friends or family. She has known pt for four years and was his homemaker for 2 of them. Zhane reported that last time she visited pt at [place] pt had packed all his belongings and wanted to leave the facility. - Goals for Treatment Patient goals for treatment: Pt reported he [facility] not [facility] to [facility]. Discharge/Continuing Care - Education Needs Education Needs: Patient Medication, Patient Diagnosis/Disease Process, Patient Coping Skills, Patient Placement options, Patient Community resources, Patient Aftercare Safety Plan - Discharge Discharge Criteria: Tolerates medication w/o severe side effects, Free of paranoid thoughts, Free of agitation, Normal sleep pattern, Ability to care for self, Reduction of target symptoms Discharge to:: Home, [facility] - Treatment Team Participation Patient/Family/SO Statement: Schizoaffective Disorder; Major Neurocognitive Impairment -Individual and group therapy -Medicine consult, Neurology consult, Podiatry consult -Continue Zyprexa 20 mg PO HS -Continue Prozac 20 mg PO Daily -Disposition planning- guardianship process initiated Discussed with Family/SO: Yes Was Patient/Family/SO present at Treatment Team Meeting: Yes Treatment Plan Review - Problem Delusions Date Initiated: 02/18/18 Time Initiated: 00:36 Progress toward outcomes: improved Medication nonadherence Date Initiated: 02/18/18 Time Initiated: 00:37 Progress toward outcomes: resolved (Pt is compliant with prescribed medications.) Agitated/Aggressive behavior Date Initiated: 04/15/18 Time Initiated: 11:35 Progress toward outcomes: unchanged (Pt is verbally abusive towards other patients. Pt observed to provoke altercations with other residents. Pt presents with poor insight and rational when confronted about bx on the unit. Pt believes that his bx towards other residents is appropriate.) - Discharge / Continuing Care Discharge to:: Longterm Facility Behavioral Health Services: Residential treatment Health Needs: Follow up care/test, Doctor appointments, Medications/Rx (Pt was seen in treatment team for review on 06/12/18. It was explained that pt's order of guardianship is on the judges desk and needs to be signed before pt is provided a court appointed guardian. Pt reported he was disappointed that he did not get to leave the unit and attend court. Other than that pt offered no questions or complaints regarding his care. )
[2018-06-13] MEDS: Ammonium Lactate 12% Cream (140 g) TOP SCH (08:57)
[2018-06-13] MEDS: Multivitamin With Minerals Tab PO SCH (09:05)
[2018-06-13] MEDS: guaiFENesin 200 mg/10 ml Syrup UD PO PRN (23:43)
[2018-06-14] MEDS: Ammonium Lactate 12% Cream (140 g) TOP SCH (08:48)
[2018-06-14] MEDS: Multivitamin With Minerals Tab PO SCH (08:52)
[2018-06-15] MEDS: guaiFENesin 200 mg/10 ml Syrup UD PO PRN (04:56)
[2018-06-15] MEDS: Ammonium Lactate 12% Cream (140 g) TOP SCH (08:27)
[2018-06-15] MEDS: Multivitamin With Minerals Tab PO SCH (08:29)
[2018-06-16] MEDS: Ammonium Lactate 12% Cream (140 g) TOP SCH (08:59)
[2018-06-16] MEDS: Multivitamin With Minerals Tab PO SCH (09:00)
[2018-06-16] MEDS: guaiFENesin 200 mg/10 ml Syrup UD PO PRN (16:41)
[2018-06-17] MEDS: Multivitamin With Minerals Tab PO SCH (08:33)
[2018-06-17] MEDS: Ammonium Lactate 12% Cream (140 g) TOP SCH (08:35)
--- NOTE | 2018-06-17 08:52 | PCM.PYCHPN ---
Psychiatric Progress Note - Psychiatric Progress Note Patient seen today, length of contact: Pt evaluated, case discussed w/ team, chart reviewed Patient Chief Complaint: Inability to care for self Problems Identified/Issues Discussed: No new events over the weekend. Patient continues to have poor insight and judgment. He can not explain his current medical conditions or which medications he takes. He believes that he can be discharged from the hospital and that he can find a place on his own, despite his physical disability, lack of access to financial resources and lack of social support. Patient does not have capacity to make medical decisions at this time. Medication Change: No Medical Record Reviewed: Yes Consults ordered or reviewed: Medicine consult, Neurology consult, Podiatry consult Mental Status Examination - Cognitive Function Orientation: Person, Place, Situation, Time Memory: Impaired Concentration: Poor Association: Loose Fund of Knowledge: Poor Decription of patient's judgement and insights: Chronic poor I/J - Mood Mood: Neutral - Affect Affect: Broad - Speech Speech: Appropriate - Formal Thought Process Formal Thought Process: Loosening of associations Psychotic Thoughts and Behaviors: Denies AH/VH/paranoia/delusions - Suicidal Ideation Suicidal Ideation: No - Homicidal Ideation Homicidal Ideation: No Goal/Treatment Plan - Goal/Treatment Plan Need for Continued Stay: Severe functional impairment Progress Toward Problem(s) and Goals/Treatment Plan: Schizoaffective Disorder; Major Neurocognitive Impairment -Individual and group therapy -Medicine consult, Neurology consult, Podiatry consult -Continue Zyprexa 20 mg PO HS -Continue Prozac 20 mg PO Daily -Disposition planning- guardianship process initiated Estimated Date of D/C: 06/28/18
[2018-06-18] MEDS: Ammonium Lactate 12% Cream (140 g) TOP SCH (08:15)
[2018-06-18] MEDS: Multivitamin With Minerals Tab PO SCH (08:19)
[2018-06-18] MEDS: guaiFENesin 200 mg/10 ml Syrup UD PO PRN (08:23)
[2018-06-19] MEDS: guaiFENesin 200 mg/10 ml Syrup UD PO PRN (08:10)
[2018-06-19] MEDS: Multivitamin With Minerals Tab PO SCH (08:11)
[2018-06-19] MEDS: Ammonium Lactate 12% Cream (140 g) TOP SCH (08:12)
[2018-06-20] MEDS: Ammonium Lactate 12% Cream (140 g) TOP SCH (08:12)
[2018-06-20] MEDS: Multivitamin With Minerals Tab PO SCH (08:15)
--- NOTE | 2018-06-20 08:55 | PCM.BM ---
Treatment Plan Problems - Problems identified on initial assessmt Delusions Date Initiated: 02/19/18 Time Initiated: 00:36 Assessment reference: NA Status: Active Medication nonadherence Date Initiated: 02/19/18 Time Initiated: 00:37 Assessment reference: NA Status: Active Agitated/Aggressive behavior Time Initiated: 11:35 Treatment assets and liabiliti Patient Assests: cooperative, negotiates basic needs Patient Liabilities: poor support system, medical problems - Milieu Protocol Maintain good personal hygiene: daily Encourage regular showers, daily Remind patient to perform daily oral care, daily Assist patient to perform ADL's Conduct patient checks and document Observation sheet: Q15 minutes Maintain personal safety: every shift Educate patient to report safety concerns to staff, every shift Monitor environment for contraband/sharps Medication safety: Monitor for expected outcome, potential side effects: every shift, Assess barriers to learning: every shift, Assess readiness for medication education: every shift Milieu Narrative: Schizoaffective Disorder; Major Neurocognitive Impairment -Individual and group therapy -Medicine consult, Neurology consult, Podiatry consult -Continue Zyprexa 20 mg PO HS -Continue Prozac 20 mg PO Daily -Disposition planning- guardianship process initiated Family Contact Family involvement: Sinan/CYNTHIA not involved Family contact: Telephone contact initiated by staff Family contact name: Zhane - Friend Family contacted how many times per week?: 2 Family contact comment: Teacher Specialist spoke with pt's support and former homemaker, Zhane [phone], for collateral and provide Zhane with visiting hours. Zhane reported that she is pt's only support and he does not have friends or family. She has known pt for four years and was his homemaker for 2 of them. Zhane reported that last time she visited pt at [facility] pt had packed all his belongings and wanted to leave the facility. - Goals for Treatment Patient goals for treatment: Pt reported he wants to be referred to a care home and not [facility] to [facility] Discharge/Continuing Care - Education Needs Education Needs: Patient Medication, Patient Diagnosis/Disease Process, Patient Coping Skills, Patient Placement options, Patient Community resources, Patient Aftercare Safety Plan - Discharge Discharge Criteria: Tolerates medication w/o severe side effects, Free of paranoid thoughts, Free of agitation, Normal sleep pattern, Ability to care for self, Reduction of target symptoms [facility] - Treatment Team Participation Patient/Family/SO Statement: Schizoaffective Disorder; Major Neurocognitive Impairment -Individual and group therapy -Medicine consult, Neurology consult, Podiatry consult -Continue Zyprexa 20 mg PO HS -Continue Prozac 20 mg PO Daily -Disposition planning- guardianship process initiated Discussed with Family/SO: Yes Was Patient/Family/SO present at Treatment Team Meeting: Yes Treatment Plan Review - Problem Delusions Date Initiated: 02/18/18 Time Initiated: 00:36 Progress toward outcomes: improved Medication nonadherence Date Initiated: 02/18/18 Time Initiated: 00:37 Progress toward outcomes: resolved (Pt is compliant with prescribed medications.) Agitated/Aggressive behavior Date Initiated: 04/15/18 Time Initiated: 11:35 Progress toward outcomes: unchanged (Pt is verbally abusive towards other patients. Pt observed to provoke altercations with other residents. Pt presents with poor insight and rational when confronted about bx on the unit. Pt believes that his bx towards other residents is appropriate.) - Discharge / Continuing Care Discharge to:: [facility] Behavioral Health Services: Residential treatment Health Needs: Follow up care/test, Doctor appointments, Medications/Rx (Pt denied safety concerns on the unit and made poor eye-contact with staff and provided viviane responses to questions. Pt reported he has a baby brother who resides in [place], but he has not seen him in 5 years and has no means to contact him. Pt reported his name is Eros Thao and works at [employer] (as of 5 years ago). Pt reported he spoke to his son last 3 years ago and the son does not reside in [place] but lives in [place] now. Pt reported he was hospitalized in [place] for 3 years in ' and [facility] for 3 years in [facility] Pt reported his "land lady" was his payee but he does not remember her name or how to contact her. )
[2018-06-21] MEDS: Multivitamin With Minerals Tab PO SCH (08:28)
[2018-06-21] MEDS: Ammonium Lactate 12% Cream (140 g) TOP SCH (08:29)
[2018-06-22] MEDS: Ammonium Lactate 12% Cream (140 g) TOP SCH (09:17)
[2018-06-22] MEDS: Multivitamin With Minerals Tab PO SCH (09:18)
--- NOTE | 2018-06-22 16:25 | PCM.PYCHPN ---
Psychiatric Progress Note - Psychiatric Progress Note Patient seen today, length of contact: Pt evaluated, case discussed w/ team, chart reviewed Patient Chief Complaint: pt has been less paranoid today but remains with poor insight and poor judgement and need further stabilization.pt is less agitated and less anxious with flat affect .pt denies side efects . pt remains cognitively impaired and cant make decision and is waiting for guardianship. Medication Change: No Medical Record Reviewed: Yes Mental Status Examination - Cognitive Function Orientation: Person, Place, Situation, Time Memory: Impaired Concentration: Poor Association: Loose Fund of Knowledge: Poor - Mood Mood: Neutral - Affect Affect: Broad - Speech Speech: Appropriate - Formal Thought Process Formal Thought Process: Loosening of associations - Suicidal Ideation Suicidal Ideation: No - Homicidal Ideation Homicidal Ideation: No Goal/Treatment Plan - Goal/Treatment Plan Need for Continued Stay: Severe functional impairment Progress Toward Problem(s) and Goals/Treatment Plan: continue meds as regimen . d/c plans as per dr panda and pt waiting for placement through guardianship . Estimated Date of D/C: 06/28/18
[2018-06-23] MEDS: guaiFENesin 200 mg/10 ml Syrup UD PO PRN (04:43)
[2018-06-23] MEDS: Ammonium Lactate 12% Cream (140 g) TOP SCH (09:35)
[2018-06-23] MEDS: Multivitamin With Minerals Tab PO SCH (09:35)
--- NOTE | 2018-06-23 13:06 | PCM.PYCHPN ---
Psychiatric Progress Note - Psychiatric Progress Note Patient seen today, length of contact: Pt evaluated, case discussed w/ team, chart reviewed Patient Chief Complaint: pt has exhibited no change in his mood and thinking and remains with poor insight and poor judgement and need further stabilization.pt is less agitated and less anxious with flat affect .pt denies side efects . pt remains cognitively impaired and cant make decision and is waiting for guardianship. Medication Change: No Medical Record Reviewed: Yes Mental Status Examination - Cognitive Function Orientation: Person, Place, Situation, Time Memory: Impaired Concentration: Poor Association: Loose Fund of Knowledge: Poor - Mood Mood: Neutral - Affect Affect: Broad - Speech Speech: Appropriate - Formal Thought Process Formal Thought Process: Loosening of associations - Suicidal Ideation Suicidal Ideation: No - Homicidal Ideation Homicidal Ideation: No Goal/Treatment Plan - Goal/Treatment Plan Need for Continued Stay: Severe functional impairment Progress Toward Problem(s) and Goals/Treatment Plan: continue meds as regimen . d/c plans as per dr panda and pt waiting for placement through guardianship . Estimated Date of D/C: 06/28/18
--- NOTE | 2018-06-24 07:32 | PCM.PYCHPN ---
Psychiatric Progress Note - Psychiatric Progress Note Patient seen today, length of contact: Pt evaluated, case discussed w/ team, chart reviewed Patient Chief Complaint: Inability to care for self Problems Identified/Issues Discussed: No new events over the weekend. Patient reports his mood is stable. Patient continues to have poor insight and judgment. He can not explain his current medical conditions or which medications he takes. He believes that he can be d ischarged from the hospital and that he can find a place on his own, despite his physical disability, lack of access to financial resources and lack of social support. Patient does not have capacity to make medical decisions at this time. Medication Change: No Medical Record Reviewed: Yes Consults ordered or reviewed: Medicine consult, Neurology consult, Podiatry consult Mental Status Examination - Cognitive Function Orientation: Person, Place, Situation, Time Memory: Impaired Concentration: Poor Association: Loose Fund of Knowledge: Poor Decription of patient's judgement and insights: Chronic poor I/J - Mood Mood: Neutral - Affect Affect: Broad - Speech Speech: Appropriate - Formal Thought Process Formal Thought Process: Loosening of associations Psychotic Thoughts and Behaviors: Denies AH/VH/paranoia/delusions - Suicidal Ideation Suicidal Ideation: No - Homicidal Ideation Homicidal Ideation: No Goal/Treatment Plan - Goal/Treatment Plan Need for Continued Stay: Severe functional impairment Progress Toward Problem(s) and Goals/Treatment Plan: Schizoaffective Disorder; Major Neurocognitive Impairment -Individual and group therapy -Medicine consult, Neurology consult, Podiatry consult -Continue Zyprexa 20 mg PO HS -Continue Prozac 20 mg PO Daily -Disposition planning- guardianship process initiated Estimated Date of D/C: 07/04/18
[2018-06-24] MEDS: guaiFENesin 200 mg/10 ml Syrup UD PO PRN ×2 (08:53→16:10)
[2018-06-24] MEDS: Ammonium Lactate 12% Cream (140 g) TOP SCH (08:54)
[2018-06-24] MEDS: Multivitamin With Minerals Tab PO SCH (08:55)
[2018-06-25] MEDS: guaiFENesin 200 mg/10 ml Syrup UD PO PRN ×2 (08:30→18:37)
[2018-06-25] MEDS: Multivitamin With Minerals Tab PO SCH (08:31)
[2018-06-25] MEDS: Ammonium Lactate 12% Cream (140 g) TOP SCH (08:34)
--- NOTE | 2018-06-26 08:15 | PCM.PYCHPN ---
Psychiatric Progress Note - Psychiatric Progress Note Patient seen today, length of contact: Pt evaluated, case discussed w/ team, chart reviewed Patient Chief Complaint: Inability to care for self Problems Identified/Issues Discussed: No new events overnight. No behavioral issues. Patient reports his mood is stable. Patient continues to have poor insight and judgment. He can not explain his current medical conditions or which medications he takes. He believes that he can be discharged from the hospital and that he can find a place on his own, despite his physical disability, lack of access to financial resources and lack of social support. Patient does not have capacity to make medical decisions at this time. Medication Change: No Medical Record Reviewed: Yes Consults ordered or reviewed: Medicine consult, Neurology consult, Podiatry consult Mental Status Examination - Cognitive Function Orientation: Person, Place, Situation, Time Memory: Impaired Concentration: Poor Association: Loose Fund of Knowledge: Poor Decription of patient's judgement and insights: Chronic poor I/J - Mood Mood: Neutral - Affect Affect: Broad - Speech Speech: Appropriate - Formal Thought Process Formal Thought Process: Loosening of associations Psychotic Thoughts and Behaviors: Denies AH/VH/paranoia/delusions - Suicidal Ideation Suicidal Ideation: No - Homicidal Ideation Homicidal Ideation: No Goal/Treatment Plan - Goal/Treatment Plan Need for Continued Stay: Severe functional impairment Progress Toward Problem(s) and Goals/Treatment Plan: Schizoaffective Disorder; Major Neurocognitive Impairment -Individual and group therapy -Medicine consult, Neurology consult, Podiatry consult -Continue Zyprexa 20 mg PO HS -Continue Prozac 20 mg PO Daily -Disposition planning- guardianship process initiated Estimated Date of D/C: 07/04/18
[2018-06-26] MEDS: Multivitamin With Minerals Tab PO SCH (08:39)
[2018-06-26] MEDS: Ammonium Lactate 12% Cream (140 g) TOP SCH (08:40)
[2018-06-26] MEDS: guaiFENesin 200 mg/10 ml Syrup UD PO PRN (08:40)
[2018-06-27] MEDS: Ammonium Lactate 12% Cream (140 g) TOP SCH (08:32)
[2018-06-27] MEDS: Multivitamin With Minerals Tab PO SCH (08:36)
--- NOTE | 2018-06-27 08:54 | PCM.BM ---
Treatment Plan Problems - Problems identified on initial assessmt Delusions Date Initiated: 02/19/18 Time Initiated: 00:36 Assessment reference: NA Status: Active Medication nonadherence Date Initiated: 02/19/18 Time Initiated: 00:37 Assessment reference: NA Status: Active Agitated/Aggressive behavior Time Initiated: 11:35 Treatment assets and liabiliti Patient Assests: cooperative, negotiates basic needs Patient Liabilities: poor support system, medical problems - Milieu Protocol Maintain good personal hygiene: daily Encourage regular showers, daily Remind patient to perform daily oral care, daily Assist patient to perform ADL's Conduct patient checks and document Observation sheet: Q15 minutes Maintain personal safety: every shift Educate patient to report safety concerns to staff, every shift Monitor environment for contraband/sharps Medication safety: Monitor for expected outcome, potential side effects: every shift, Assess barriers to learning: every shift, Assess readiness for medication education: every shift Milieu Narrative: Schizoaffective Disorder; Major Neurocognitive Impairment -Individual and group therapy -Medicine consult, Neurology consult, Podiatry consult -Continue Zyprexa 20 mg PO HS -Continue Prozac 20 mg PO Daily -Disposition planning- guardianship process initiated Family Contact Family involvement: Sinan/CYNTHIA not involved Family contact: Telephone contact initiated by staff Family contact name: Zhane - Friend Family contacted how many times per week?: 2 Family contact comment: Land Measurer spoke with pt's support and former homemaker, Zhane [phone], for collateral and provide Zhane with visiting hours. Zhane reported that she is pt's only support and he does not have friends or family. She has known pt for four years and was his homemaker for 2 of them. Zhane reported that last time she visited pt at [facility] pt had packed all his belongings and wanted to leave the facility. - Goals for Treatment Patient goals for treatment: Pt reported he wants to be referred to a assisted and not return to [facility]. Discharge/Continuing Care - Education Needs Education Needs: Patient Medication, Patient Diagnosis/Disease Process, Patient Coping Skills, Patient Placement options, Patient Community resources, Patient Aftercare Safety Plan - Discharge Discharge Criteria: Tolerates medication w/o severe side effects, Free of paranoid thoughts, Free of agitation, Normal sleep pattern, Ability to care for self, Reduction of target symptoms [facility]charge to:: [facility] - Treatment Team Participation Patient/Family/SO Statement: Schizoaffective Disorder; Major Neurocognitive Impairment -Individual and group therapy -Medicine consult, Neurology consult, Podiatry consult -Continue Zyprexa 20 mg PO HS -Continue Prozac 20 mg PO Daily -Disposition planning- guardianship process initiated Discussed with Family/SO: Yes Was Patient/Family/SO present at Treatment Team Meeting: Yes Treatment Plan Review - Problem Delusions Date Initiated: 02/18/18 Time Initiated: 00:36 Progress toward outcomes: improved Medication nonadherence Date Initiated: 02/18/18 Time Initiated: 00:37 Progress toward outcomes: resolved (Pt is compliant with prescribed medications.) Agitated/Aggressive behavior Date Initiated: 04/15/18 Time Initiated: 11:35 Progress toward outcomes: unchanged (Pt is verbally abusive towards other patients. Pt observed to provoke altercations with other residents. Pt presents with poor insight and rational when confronted about bx on the unit. Pt believes that his bx towards other residents is appropriate.) - Discharge / Continuing Care Discharge to:: [facility]-Term Behavioral Health Services: Residential treatment Health Needs: Follow up care/test, Doctor appointments, Medications/Rx (Pt seen in treatment team for review on 06/26/18. Pt remains a poor historian, tangential and difficult to redirect. Pt reported that his brother resides in [facility] or [place] and staff can find him at [facility] in [place] and he works through a temp agency. Pt reported his brother a Martiniquais Lady. Pt reported his brother is 58 or 59 and he has not spoken to him for years after pt made a "comment" and he "didn't come back no more." Pt offered no questions or complaints at this time and denied SI/HI and AVT hallucinations. )
[2018-06-28] MEDS: Ammonium Lactate 12% Cream (140 g) TOP SCH (08:59)
[2018-06-28] MEDS: Multivitamin With Minerals Tab PO SCH (09:00)
[2018-06-28] MEDS: guaiFENesin 200 mg/10 ml Syrup UD PO PRN (09:01)
--- NOTE | 2018-06-28 09:55 | PCM.PYCHPN ---
Psychiatric Progress Note - Psychiatric Progress Note Patient seen today, length of contact: Pt evaluated, case discussed w/ team, chart reviewed Patient Chief Complaint: Inability to care for self Problems Identified/Issues Discussed: No new events. No behavioral issues. Patient reports his mood is stable. Patient continues to have poor insight and judgment. He can not explain his current medical conditions or which medications he takes. He believes that he can be discharged from the hospital and that he can find a place on his own, despite his physical disability, lack of access to financial resources and lack of social support. Patient does not have capacity to make medical decisions at this time. Medication Change: No Medical Record Reviewed: Yes Consults ordered or reviewed: Medicine consult, Neurology consult, Podiatry consult Mental Status Examination - Cognitive Function Orientation: Person, Place, Situation, Time Memory: Impaired Concentration: Poor Association: Loose Fund of Knowledge: Poor Decription of patient's judgement and insights: Chronic poor I/J - Mood Mood: Neutral - Affect Affect: Broad - Speech Speech: Appropriate - Formal Thought Process Formal Thought Process: Loosening of associations Psychotic Thoughts and Behaviors: Denies AH/VH/paranoia/delusions - Suicidal Ideation Suicidal Ideation: No - Homicidal Ideation Homicidal Ideation: No Goal/Treatment Plan - Goal/Treatment Plan Need for Continued Stay: Severe functional impairment Progress Toward Problem(s) and Goals/Treatment Plan: Schizoaffective Disorder; Major Neurocognitive Impairment -Individual and group therapy -Medicine consult, Neurology consult, Podiatry consult -Continue Zyprexa 20 mg PO HS -Continue Prozac 20 mg PO Daily -Disposition planning- guardianship process initiated Estimated Date of D/C: 07/12/18
[2018-06-29] MEDS: Ammonium Lactate 12% Cream (140 g) TOP SCH (08:23)
[2018-06-29] MEDS: Multivitamin With Minerals Tab PO SCH (08:25)
--- NOTE | 2018-06-29 09:33 | PCM.PYCHPN ---
Psychiatric Progress Note - Psychiatric Progress Note Patient seen today, length of contact: Pt evaluated, case discussed w/ team, chart reviewed Patient Chief Complaint: pt has remained compliant with meds and exhibited no change in his mood and thinking and remains with poor insight and poor judgement and need further stabilization.pt is less agitated and less anxious with flat affect .pt denies side efects . pt remains cognitively impaired and cant make decision and is waiting for guar dianship. Medication Change: No Medical Record Reviewed: Yes Mental Status Examination - Cognitive Function Orientation: Person, Place, Situation, Time Memory: Impaired Concentration: Poor Association: Loose Fund of Knowledge: Poor - Mood Mood: Neutral - Affect Affect: Broad - Speech Speech: Appropriate - Formal Thought Process Formal Thought Process: Loosening of associations - Suicidal Ideation Suicidal Ideation: No - Homicidal Ideation Homicidal Ideation: No Goal/Treatment Plan - Goal/Treatment Plan Need for Continued Stay: Severe functional impairment Progress Toward Problem(s) and Goals/Treatment Plan: continue meds as regimen . d/c plans as per dr panda and pt waiting for placement through guardianship . Estimated Date of D/C: 07/12/18
[2018-06-30] MEDS: Multivitamin With Minerals Tab PO SCH (08:28)
[2018-06-30] MEDS: Ammonium Lactate 12% Cream (140 g) TOP SCH (08:31)
--- NOTE | 2018-06-30 10:54 | PCM.PYCHPN ---
Psychiatric Progress Note - Psychiatric Progress Note Patient seen today, length of contact: Pt evaluated, case discussed w/ team, chart reviewed Patient Chief Complaint: I am alright Problems Identified/Issues Discussed: pt evaluated in day room, reported mood fine, appropriate affect, no behavioral disturbances reported by staff, compliant with medications no reported side effects , denied command hallucinations, denied suicidal or homicidal ideation DSM 5 Symptoms Update: schizoaffective disorder Medication Change: No Medical Record Reviewed: Yes Mental Status Examination - Cognitive Function Orientation: Person, Place, Situation, Time Memory: Impaired Concentration: Poor Association: Loose Fund of Knowledge: Poor - Mood Mood: Neutral - Affect Affect: Broad - Speech Speech: Appropriate - Formal Thought Process Formal Thought Process: Loosening of associations - Suicidal Ideation Suicidal Ideation: No - Homicidal Ideation Homicidal Ideation: No Goal/Treatment Plan - Goal/Treatment Plan Need for Continued Stay: Severe functional impairment Progress Toward Problem(s) and Goals/Treatment Plan: continue current management group and supportive therapy disposition planning Estimated Date of D/C: 07/12/18
--- NOTE | 2018-07-01 08:25 | PCM.PYCHPN ---
Psychiatric Progress Note - Psychiatric Progress Note Patient seen today, length of contact: Pt evaluated, case discussed w/ team, chart reviewed Patient Chief Complaint: Inability to care for self Problems Identified/Issues Discussed: No new events over the weekend. No behavioral issues. Patient reports his mood is stable. Patient continues to have poor insight and judgment. He can not explain his current medical conditions or which medications he takes. He be lieves that he can be discharged from the hospital and that he can find a place on his own, despite his physical disability, lack of access to financial resources and lack of social support. Patient does not have capacity to make medical decisions at this time. Medication Change: No Medical Record Reviewed: Yes Consults ordered or reviewed: Medicine consult, Neurology consult, Podiatry consult Mental Status Examination - Cognitive Function Orientation: Person, Place, Situation, Time Memory: Impaired Concentration: Poor Association: Loose Fund of Knowledge: Poor Decription of patient's judgement and insights: Chronic poor I/J - Mood Mood: Neutral - Affect Affect: Broad - Speech Speech: Appropriate - Formal Thought Process Formal Thought Process: Loosening of associations Psychotic Thoughts and Behaviors: Denies AH/VH/paranoia - Suicidal Ideation Suicidal Ideation: No - Homicidal Ideation Homicidal Ideation: No Goal/Treatment Plan - Goal/Treatment Plan Need for Continued Stay: Severe functional impairment Progress Toward Problem(s) and Goals/Treatment Plan: Schizoaffective Disorder; Major Neurocognitive Impairment -Individual and group therapy -Medicine consult, Neurology consult, Podiatry consult -Continue Zyprexa 20 mg PO HS -Continue Prozac 20 mg PO Daily -Disposition planning- guardianship process initiated Estimated Date of D/C: 07/19/18
[2018-07-01] MEDS: Multivitamin With Minerals Tab PO SCH (09:12)
[2018-07-01] MEDS: Ammonium Lactate 12% Cream (140 g) TOP SCH (09:13)
[2018-07-02] MEDS: Multivitamin With Minerals Tab PO SCH (08:14)
[2018-07-02] MEDS: Ammonium Lactate 12% Cream (140 g) TOP SCH (09:08)
--- NOTE | 2018-07-03 08:21 | PCM.PYCHPN ---
Psychiatric Progress Note - Psychiatric Progress Note Patient seen today, length of contact: Pt evaluated, case discussed w/ team, chart reviewed Patient Chief Complaint: Inability to care for self Problems Identified/Issues Discussed: No new events overnight. Patient reports his mood is stable. Patient continues to have poor insight and judgment. He can not explain his current medical conditions or which medications he takes. He believes that he can be discharged from the hospital and that he can find a place on his own, despite his physical disability, lack of access to financial resources and lack of social support. Patient does not have capacity to make medical decisions at this time. Medication Change: No Medical Record Reviewed: Yes Consults ordered or reviewed: Medicine consult, Neurology consult, Podiatry consult Mental Status Examination - Cognitive Function Orientation: Person, Place, Situation, Time Memory: Impaired Concentration: Poor Association: Loose Fund of Knowledge: Poor Decription of patient's judgement and insights: Chronic poor I/J - Mood Mood: Neutral - Affect Affect: Broad - Speech Speech: Appropriate - Formal Thought Process Formal Thought Process: Loosening of associations Psychotic Thoughts and Behaviors: Denies AH/VH/paranoia - Suicidal Ideation Suicidal Ideation: No - Homicidal Ideation Homicidal Ideation: No Goal/Treatment Plan - Goal/Treatment Plan Need for Continued Stay: Severe functional impairment Progress Toward Problem(s) and Goals/Treatment Plan: Schizoaffective Disorder; Major Neurocognitive Impairment -Individual and group therapy -Medicine consult, Neurology consult, Podiatry consult -Continue Zyprexa 20 mg PO HS -Continue Prozac 20 mg PO Daily -Disposition planning- guardianship process initiated Estimated Date of D/C: 07/19/18
[2018-07-03] MEDS: Ammonium Lactate 12% Cream (140 g) TOP SCH (08:33)
[2018-07-03] MEDS: Multivitamin With Minerals Tab PO SCH (08:36)
[2018-07-03] MEDS: guaiFENesin 200 mg/10 ml Syrup UD PO PRN (20:00)
[2018-07-04] MEDS: Multivitamin With Minerals Tab PO SCH (08:19)
[2018-07-04] MEDS: guaiFENesin 200 mg/10 ml Syrup UD PO PRN (08:20)
[2018-07-04] MEDS: Ammonium Lactate 12% Cream (140 g) TOP SCH (11:01)
[2018-07-05] MEDS: guaiFENesin 200 mg/10 ml Syrup UD PO PRN (02:00)
[2018-07-05] MEDS: Ammonium Lactate 12% Cream (140 g) TOP SCH (08:11)
[2018-07-05] MEDS: Multivitamin With Minerals Tab PO SCH (08:14)
[2018-07-06] MEDS: guaiFENesin 200 mg/10 ml Syrup UD PO PRN ×2 (08:34→17:16)
[2018-07-06] MEDS: Ammonium Lactate 12% Cream (140 g) TOP SCH (08:34)
[2018-07-06] MEDS: Multivitamin With Minerals Tab PO SCH (08:36)
--- NOTE | 2018-07-06 09:56 | PCM.PYCHPN ---
Psychiatric Progress Note - Psychiatric Progress Note Patient seen today, length of contact: Pt evaluated, case discussed w/ team, chart reviewed Patient Chief Complaint: I am alright Problems Identified/Issues Discussed: pt evaluated in day room, reported mood fine, appropriate affect, no behavioral disturbances reported by staff, compliant with medications no reported side effects , denied command hallucinations, denied suicidal or homicidal ideation Medication Change: No Medical Record Reviewed: Yes Mental Status Examination - Cognitive Function Orientation: Person, Place, Situation, Time Memory: Impaired Concentration: Poor Association: Loose Fund of Knowledge: Poor - Mood Mood: Neutral - Affect Affect: Broad - Speech Speech: Appropriate - Formal Thought Process Formal Thought Process: Loosening of associations - Suicidal Ideation Suicidal Ideation: No - Homicidal Ideation Homicidal Ideation: No Goal/Treatment Plan - Goal/Treatment Plan Need for Continued Stay: Severe functional impairment Progress Toward Problem(s) and Goals/Treatment Plan: continue current management group and supportive therapy disposition planning Estimated Date of D/C: 07/19/18
[2018-07-07] MEDS: Multivitamin With Minerals Tab PO SCH (08:17)
[2018-07-07] MEDS: guaiFENesin 200 mg/10 ml Syrup UD PO PRN ×2 (08:17→16:14)
[2018-07-07] MEDS: Ammonium Lactate 12% Cream (140 g) TOP SCH (08:19)
[2018-07-08] MEDS: Multivitamin With Minerals Tab PO SCH (08:26)
[2018-07-08] MEDS: Ammonium Lactate 12% Cream (140 g) TOP SCH (08:29)
--- NOTE | 2018-07-08 08:41 | PCM.PYCHPN ---
Psychiatric Progress Note - Psychiatric Progress Note Patient seen today, length of contact: Pt evaluated, case discussed w/ team, chart reviewed Patient Chief Complaint: Inability to care for self Problems Identified/Issues Discussed: No new events over the weekend. Patient reports his mood is stable. Patient continues to have poor insight and judgment. He can not explain his current medical conditions or which medications he takes. He believes that he can be d ischarged from the hospital and that he can find a place on his own, despite his physical disability, lack of access to financial resources and lack of social support. Patient does not have capacity to make medical decisions at this time. Medication Change: No Medical Record Reviewed: Yes Consults ordered or reviewed: Medicine consult, Neurology consult, Podiatry consult Mental Status Examination - Cognitive Function Orientation: Person, Place, Situation, Time Memory: Impaired Concentration: Poor Association: Loose Fund of Knowledge: Poor Decription of patient's judgement and insights: Poor I/J - Mood Mood: Neutral - Affect Affect: Broad - Speech Speech: Appropriate - Formal Thought Process Formal Thought Process: Loosening of associations Psychotic Thoughts and Behaviors: Denies AH/VH - Suicidal Ideation Suicidal Ideation: No - Homicidal Ideation Homicidal Ideation: No Goal/Treatment Plan - Goal/Treatment Plan Need for Continued Stay: Severe functional impairment Progress Toward Problem(s) and Goals/Treatment Plan: Schizoaffective Disorder; Major Neurocognitive Impairment -Individual and group therapy -Medicine consult, Neurology consult, Podiatry consult -Continue Zyprexa 20 mg PO HS -Continue Prozac 20 mg PO Daily -Disposition planning- guardianship process continued Estimated Date of D/C: 07/19/18
[2018-07-09] MEDS: Multivitamin With Minerals Tab PO SCH (09:24)
[2018-07-09] MEDS: Ammonium Lactate 12% Cream (140 g) TOP SCH (09:24)
[2018-07-09] MEDS: guaiFENesin 200 mg/10 ml Syrup UD PO PRN (13:51)
[2018-07-10] MEDS: Ammonium Lactate 12% Cream (140 g) TOP SCH (08:22)
[2018-07-10] MEDS: guaiFENesin 200 mg/10 ml Syrup UD PO PRN ×2 (08:23→16:33)
[2018-07-10] MEDS: Multivitamin With Minerals Tab PO SCH (08:23)
--- NOTE | 2018-07-10 08:52 | PCM.PYCHPN ---
Psychiatric Progress Note - Psychiatric Progress Note Patient seen today, length of contact: Pt evaluated, case discussed w/ team, chart reviewed Patient Chief Complaint: Inability to care for self Problems Identified/Issues Discussed: No new events overnight. Patient reports his mood is stable. Patient continues to have poor insight and judgment. He can not explain his current medical conditions or which medications he takes. He believes that he can be discharged from the hospital and that he can find a place on his own, despite his physical disability, lack of access to financial resources and lack of social support. Patient does not have capacity to make medical decisions at this time. Medication Change: No Medical Record Reviewed: Yes Consults ordered or reviewed: Medicine consult, Neurology consult, Podiatry consult Mental Status Examination - Cognitive Function Orientation: Person, Place, Situation, Time Memory: Impaired Concentration: Poor Association: Loose Fund of Knowledge: Poor Decription of patient's judgement and insights: Poor I/J - Mood Mood: Neutral - Affect Affect: Broad - Speech Speech: Appropriate - Formal Thought Process Formal Thought Process: Loosening of associations Psychotic Thoughts and Behaviors: Denies AH/VH - Suicidal Ideation Suicidal Ideation: No - Homicidal Ideation Homicidal Ideation: No Goal/Treatment Plan - Goal/Treatment Plan Need for Continued Stay: Severe functional impairment Progress Toward Problem(s) and Goals/Treatment Plan: Schizoaffective Disorder; Major Neurocognitive Impairment -Individual and group therapy -Medicine consult, Neurology consult, Podiatry consult -Continue Zyprexa 20 mg PO HS -Continue Prozac 20 mg PO Daily -Disposition planning- guardianship process continued Estimated Date of D/C: 07/19/18
--- NOTE | 2018-07-11 08:16 | PCM.PYCHPN ---
Psychiatric Progress Note - Psychiatric Progress Note Patient seen today, length of contact: Pt evaluated, case discussed w/ team, chart reviewed Patient Chief Complaint: Inability to care for self Problems Identified/Issues Discussed: No new events. Patient reports his mood is stable. Patient continues to have poor insight and judgment. He can not explain his current medical conditions or which medications he takes. He believes that he can be discharged from the hospital and that he can find a place on his own, despite his physical disability, lack of access to financial resources and lack of social support. Patient does not have capacity to make medical decisions at this time. Medication Change: No Medical Record Reviewed: Yes Consults ordered or reviewed: Medicine consult, Neurology consult, Podiatry consult Mental Status Examination - Cognitive Function Orientation: Person, Place, Situation, Time Memory: Impaired Concentration: Poor Association: Loose Fund of Knowledge: Poor Decription of patient's judgement and insights: Poor I/J - Mood Mood: Neutral - Affect Affect: Broad - Speech Speech: Appropriate - Formal Thought Process Formal Thought Process: Loosening of associations Psychotic Thoughts and Behaviors: Denies AH/VH - Suicidal Ideation Suicidal Ideation: No - Homicidal Ideation Homicidal Ideation: No Goal/Treatment Plan - Goal/Treatment Plan Need for Continued Stay: Severe functional impairment Progress Toward Problem(s) and Goals/Treatment Plan: Schizoaffective Disorder; Major Neurocognitive Impairment -Individual and group therapy -Medicine consult, Neurology consult, Podiatry consult -Continue Zyprexa 20 mg PO HS -Continue Prozac 20 mg PO Daily -Disposition planning- guardianship process continued Estimated Date of D/C: 07/24/18
[2018-07-11] MEDS: guaiFENesin 200 mg/10 ml Syrup UD PO PRN ×2 (08:37→16:57)
[2018-07-11] MEDS: Ammonium Lactate 12% Cream (140 g) TOP SCH (08:38)
[2018-07-11] MEDS: Multivitamin With Minerals Tab PO SCH (08:38)
--- NOTE | 2018-07-11 08:45 | PCM.BM ---
Treatment Plan Problems - Problems identified on initial assessmt Delusions Date Initiated: 02/19/18 Time Initiated: 00:36 Assessment reference: NA Status: Active Medication nonadherence Date Initiated: 02/19/18 Time Initiated: 00:37 Assessment reference: NA Status: Active Agitated/Aggressive behavior Time Initiated: 11:35 Treatment assets and liabiliti Patient Assests: cooperative, negotiates basic needs Patient Liabilities: poor support system, medical problems - Milieu Protocol Maintain good personal hygiene: daily Encourage regular showers, daily Remind patient to perform daily oral care, daily Assist patient to perform ADL's Conduct patient checks and document Observation sheet: Q15 minutes Maintain personal safety: every shift Educate patient to report safety concerns to staff, every shift Monitor environment for contraband/sharps Medication safety: Monitor for expected outcome, potential side effects: every shift, Assess barriers to learning: every shift, Assess readiness for medication education: every shift Milieu Narrative: Schizoaffective Disorder; Major Neurocognitive Impairment -Individual and group therapy -Medicine consult, Neurology consult, Podiatry consult -Continue Zyprexa 20 mg PO HS -Continue Prozac 20 mg PO Daily -Disposition planning- guardianship process continued Family Contact Family involvement: Fammaura/SO not involved Family contact: Telephone contact initiated by staff Family contact name: Zhane - Friend Family contacted how many times per week?: 2 Family contact comment: Sap Bw Developer spoke with pt's support and former homemaker, Zhane [phone], for collateral and provide Zhane with visiting hours. Zhane reported that she is pt's only support and he does not have friends or family. She has known pt for four years and was his homemaker for 2 of them. Zhane reported that last time she visited pt at [facility] pt had packed all his belongings and wanted to leave the facility. - Goals for Treatment Patient goals for treatment: Pt reported he wants to be referred to a long term and not return to [facility]. Discharge/Continuing Care - Education Needs Education Needs: Patient Medication, Patient Diagnosis/Disease Process, Patient Coping Skills, Patient Placement options, Patient Community resources, Patient Aftercare Safety Plan - Discharge Discharge Criteria: Tolerates medication w/o severe side effects, Free of paranoid thoughts, Free of agitation, Normal sleep pattern, Ability to care for self, Reduction of target symptoms Discharge to:: [facility] - Treatment Team Participation Patient/Family/SO Statement: Schizoaffective Disorder; Major Neurocognitive Impairment -Individual and group therapy -Medicine consult, Neurology consult, Podiatry consult -Continue Zyprexa 20 mg PO HS -Continue Prozac 20 mg PO Daily -Disposition planning- guardianship process continued Discussed with Family/SO: Yes Was Patient/Family/SO present at Treatment Team Meeting: Yes Treatment Plan Review Patient participation: Yes Family/SO/Caregiver participation: No Additional Comments: Pt seen in team meeting progress on the unit reviewed and discussed. Pt informed of guardianship status and advised that Engineering Designer Andrei signed the Judgment Form and Office [employer] Public [employer] ([facility]) will be his guardian. Pt informed that [facility] will assist him in making any financial and medical decisions. Pt verbalized understanding of same. Pt reported that he would like to go to his own apartment and not a jail facility. Pt reported that he would rent a room and hire a homemaker to assist him in the community. Pt continues to present with poor insight into his cognitive deficits and ability to care for self.Pt's medications reviewed and discussed. SW to continue to follow case. - Problem Delusions Date Initiated: 02/18/18 Time Initiated: 00:36 Progress toward outcomes: improved Medication nonadherence Date Initiated: 02/18/18 Time Initiated: 00:37 Progress toward outcomes: resolved (Pt is compliant with prescribed medications.) Agitated/Aggressive behavior Date Initiated: 04/15/18 Time Initiated: 11:35 Progress toward outcomes: improved (Pt has ot displayed hortensia ggressive/assaultive bx's on the unit. At times, pt is verbally inappropriate with staff members and of peers and pt does not believe he is in the wrong.) - Discharge / Continuing Care Discharge to:: [facility]: Other (Medication management; structured group therapy) Health Needs: Follow up care/test, Special equipment, Nutritional, Medications/Rx, Educational, Recreational/Social
[2018-07-12] MEDS: Multivitamin With Minerals Tab PO SCH (08:49)
[2018-07-12] MEDS: Ammonium Lactate 12% Cream (140 g) TOP SCH (08:50)
[2018-07-13] MEDS: Multivitamin With Minerals Tab PO SCH (08:45)
[2018-07-13] MEDS: Ammonium Lactate 12% Cream (140 g) TOP SCH (08:47)
[2018-07-14] MEDS: Multivitamin With Minerals Tab PO SCH (08:27)
[2018-07-14] MEDS: Ammonium Lactate 12% Cream (140 g) TOP SCH (08:28)
[2018-07-14] MEDS: guaiFENesin 200 mg/10 ml Syrup UD PO PRN (13:03)
[2018-07-15] MEDS: guaiFENesin 200 mg/10 ml Syrup UD PO PRN (08:20)
[2018-07-15] MEDS: Multivitamin With Minerals Tab PO SCH (08:23)
[2018-07-15] MEDS: Ammonium Lactate 12% Cream (140 g) TOP SCH (08:23)
[2018-07-16] MEDS: Multivitamin With Minerals Tab PO SCH (08:10)
[2018-07-16] MEDS: guaiFENesin 200 mg/10 ml Syrup UD PO PRN ×2 (08:10→16:04)
[2018-07-16] MEDS: Ammonium Lactate 12% Cream (140 g) TOP SCH (09:00)
[2018-07-17] MEDS: Multivitamin With Minerals Tab PO SCH (08:33)
[2018-07-17] MEDS: Ammonium Lactate 12% Cream (140 g) TOP SCH (08:35)
--- NOTE | 2018-07-17 16:18 | PCM.BM ---
Treatment Plan Problems - Problems identified on initial assessmt Delusions Date Initiated: 02/19/18 Time Initiated: 00:36 Assessment reference: NA Status: Active Medication nonadherence Date Initiated: 02/19/18 Time Initiated: 00:37 Assessment reference: NA Status: Active Agitated/Aggressive behavior Time Initiated: 11:35 Treatment assets and liabiliti Patient Assests: cooperative, negotiates basic needs Patient Liabilities: poor support system, medical problems - Milieu Protocol Maintain good personal hygiene: daily Encourage regular showers, daily Remind patient to perform daily oral care, daily Assist patient to perform ADL's Conduct patient checks and document Observation sheet: Q15 minutes Maintain personal safety: every shift Educate patient to report safety concerns to staff, every shift Monitor environment for contraband/sharps Medication safety: Monitor for expected outcome, potential side effects: every shift, Assess barriers to learning: every shift, Assess readiness for medication education: every shift Milieu Narrative: Schizoaffective Disorder; Major Neurocognitive Impairment -Individual and group therapy -Medicine consult, Neurology consult, Podiatry consult -Continue Zyprexa 20 mg PO HS -Continue Prozac 20 mg PO Daily -Disposition planning- guardianship process continued Family Contact Family involvement: Fammaura/SO not involved Family contact: Telephone contact initiated by staff Family contact name: Zhane - Friend Family contacted how many times per week?: 2 Family contact comment: Stack Attendant spoke with pt's support and former homemaker, Zhane [phone], for collateral and provide Zhane with visiting hours. Zhane reported that she is pt's only support and he does not have friends or family. She has known pt for four years and was his homemaker for 2 of them. Zhane reported that last time she visited pt at [facility] pt had packed all his belongings and wanted to leave the facility. - Goals for Treatment Patient goals for treatment: Pt reported he wants to be referred to a skilled nursing and not return to [facility]. Discharge/Continuing Care - Education Needs Education Needs: Patient Medication, Patient Diagnosis/Disease Process, Patient Coping Skills, Patient Placement options, Patient Community resources, Patient Aftercare Safety Plan - Discharge Discharge Criteria: Tolerates medication w/o severe side effects, Free of paranoid thoughts, Free of agitation, Normal sleep pattern, Ability to care for self, Reduction of target symptoms Discharge to:: [facility] - Treatment Team Participation Patient/Family/SO Statement: Schizoaffective Disorder; Major Neurocognitive Impairment -Individual and group therapy -Medicine consult, Neurology consult, Podiatry consult -Continue Zyprexa 20 mg PO HS -Continue Prozac 20 mg PO Daily -Disposition planning- guardianship process continued Discussed with Family/SO: Yes Was Patient/Family/SO present at Treatment Team Meeting: Yes Treatment Plan Review - Problem Delusions Date Initiated: 02/18/18 Time Initiated: 00:36 Progress toward outcomes: improved Medication nonadherence Date Initiated: 02/18/18 Time Initiated: 00:37 Progress toward outcomes: resolved (Pt is compliant with prescribed medications.) Agitated/Aggressive behavior Date Initiated: 04/15/18 Time Initiated: 11:35 Progress toward outcomes: improved (Pt has ot displayed hortensia ggressive/assaultive bx's on the unit. At times, pt is verbally inappropriate with staff members and of peers and pt does not believe he is in the wrong.) - Discharge / Continuing Care Discharge to:: [facility]: Residential treatment Health Needs: Follow up care/test, Medications/Rx (Pt met with in tx team for review on 07/17/18. Pt offered no complaints at this time and was informed that he was still awaiting appointment of temp guardian. Pt denied SI/HI and AVT hallucinations. Pt is oriented X3. )
[2018-07-17] MEDS: guaiFENesin 200 mg/10 ml Syrup UD PO PRN (17:20)
[2018-07-18] MEDS: Ammonium Lactate 12% Cream (140 g) TOP SCH (12:09)
[2018-07-18] MEDS: Multivitamin With Minerals Tab PO SCH (12:11)
[2018-07-19] MEDS: Ammonium Lactate 12% Cream (140 g) TOP SCH (09:04)
[2018-07-19] MEDS: Multivitamin With Minerals Tab PO SCH (09:06)
--- NOTE | 2018-07-19 09:14 | PCM.PYCHPN ---
Psychiatric Progress Note - Psychiatric Progress Note Patient seen today, length of contact: Pt evaluated, case discussed w/ team, chart reviewed Patient Chief Complaint: Inability to care for self Problems Identified/Issues Discussed: No new events. Patient reports his mood is stable. Temporary guardian has been assigned. Medication Change: No Medical Record Reviewed: Yes Consults ordered or reviewed: Medicine consult, Neurology consult, Podiatry consult Mental Status Examination - Cognitive Function Orientation: Person, Place, Situation, Time Memory: Impaired Concentration: Poor Association: Loose Fund of Knowledge: Poor Decription of patient's judgement and insights: Poor I/J - Mood Mood: Neutral - Affect Affect: Broad - Speech Speech: Appropriate - Formal Thought Process Formal Thought Process: Loosening of associations Psychotic Thoughts and Behaviors: Denies AH/VH - Suicidal Ideation Suicidal Ideation: No - Homicidal Ideation Homicidal Ideation: No Goal/Treatment Plan - Goal/Treatment Plan Need for Continued Stay: Severe functional impairment Progress Toward Problem(s) and Goals/Treatment Plan: Schizoaffective Disorder; Major Neurocognitive Impairment -Individual and group therapy -Medicine consult, Neurology consult, Podiatry consult -Continue Zyprexa 20 mg PO HS -Continue Prozac 20 mg PO Daily -Disposition planning- temporary guardian assigned; guardian to meet with patient to discuss disposition Estimated Date of D/C: 07/31/18
[2018-07-19] MEDS: guaiFENesin 200 mg/10 ml Syrup UD PO PRN (19:16)
[2018-07-20] MEDS: guaiFENesin 200 mg/10 ml Syrup UD PO PRN ×2 (08:58→15:27)
[2018-07-20] MEDS: Ammonium Lactate 12% Cream (140 g) TOP SCH (08:59)
[2018-07-20] MEDS: Multivitamin With Minerals Tab PO SCH (09:01)
--- NOTE | 2018-07-20 18:32 | PCM.PYCHPN ---
Psychiatric Progress Note - Psychiatric Progress Note Patient seen today, length of contact: Pt evaluated, case discussed w/ team, chart reviewed Patient Chief Complaint: pt seen in social area then later redirected to private area-denies any inabilities related to self care-health, finances and domicile-requires total care. rx adherent. Problems Identified/Issues Discussed: alteration in mood in cognition self pt in process of court appointed evaluation guardianship does not want to go back to previous -pt is not able to make decisions as has impaired insight and judgment requires structure for both medical, psychiatric, domicile and financial care pt process of being assigned guardian Medical Problems: per chart Diagnostic Results: per psychiatry per medicine per nursing per psychosocial rehabilitation counselor per recreational worker DSM 5 Symptoms Update: staff report pt appears baseline adherent with rx with redirection and support Medication Change: No Medical Record Reviewed: Yes Consults ordered or reviewed: pt being followed by medical team Mental Status Examination - Cognitive Function Orientation: Person, Place, Situation, Time Memory: Impaired Concentration: Poor Association: Loose Fund of Knowledge: Poor Decription of patient's judgement and insights: impaired - Mood Mood: Neutral - Affect Affect: Broad - Speech Speech: Appropriate - Formal Thought Process Formal Thought Process: Loosening of associations - Suicidal Ideation Suicidal Ideation: No - Homicidal Ideation Homicidal Ideation: No Goal/Treatment Plan - Goal/Treatment Plan Need for Continued Stay: Severe functional impairment Progress Toward Problem(s) and Goals/Treatment Plan: inpt milieu adjust med per status vital signs and clinical observation per clinical status discharge planning in progress pending guardianship and ltc placement Estimated Date of D/C: 07/31/18 - Smoking Cessation Smoking Cessation Initiated: No Reason for not providing: defers
[2018-07-21] MEDS: guaiFENesin 200 mg/10 ml Syrup UD PO PRN ×2 (06:30→16:28)
[2018-07-21] MEDS: Multivitamin With Minerals Tab PO SCH (08:49)
[2018-07-21] MEDS: Ammonium Lactate 12% Cream (140 g) TOP SCH (08:50)
--- NOTE | 2018-07-21 22:30 | PCM.PYCHPN ---
Psychiatric Progress Note - Psychiatric Progress Note Patient seen today, length of contact: Pt evaluated, case discussed w/ team, chart reviewed Patient Chief Complaint: pt seen in social area then later redirected to private area-denies any inabilities related to self care-health, finances and domicile-requires total care. rx adherent. Problems Identified/Issues Discussed: alteration in mood in cognition self pt in process of court appointed evaluation guardianship does not want to go back to previous -pt is not able to make decisions as has impaired insight and judgment requires structure for both medical, psychiatric, domicile and financial care pt process of being assigned guardian Medical Problems: per chart Diagnostic Results: per psychiatry per medicine per nursing per hospice social worker per recreational worker DSM 5 Symptoms Update: appears to be at baseline status cognitively and behavior requires total care Medication Change: No Medical Record Reviewed: Yes Consults ordered or reviewed: pt being followed by medical provider Mental Status Examination - Cognitive Function Orientation: Person, Place, Situation, Time Memory: Impaired Concentration: Poor Association: Loose Fund of Knowledge: Poor Decription of patient's judgement and insights: impaired - Mood Mood: Neutral - Affect Affect: Broad - Speech Speech: Appropriate - Formal Thought Process Formal Thought Process: Loosening of associations - Suicidal Ideation Suicidal Ideation: No - Homicidal Ideation Homicidal Ideation: No Goal/Treatment Plan - Goal/Treatment Plan Need for Continued Stay: Severe functional impairment Progress Toward Problem(s) and Goals/Treatment Plan: inpt milieu adjust med per status vital signs and clinical observation per clinical status discharge planning in progress pending guardianship and ltc placement Estimated Date of D/C: 07/31/18 - Smoking Cessation Smoking Cessation Initiated: No Reason for not providing: pt defers
[2018-07-22] MEDS: Multivitamin With Minerals Tab PO SCH (08:37)
[2018-07-22] MEDS: Ammonium Lactate 12% Cream (140 g) TOP SCH (08:38)
[2018-07-22] MEDS: Magnesium Hydroxide Susp 30 ml UD PO SCH (15:08)
--- NOTE | 2018-07-22 20:00 | PCM.PYCHPN ---
Psychiatric Progress Note - Psychiatric Progress Note Patient seen today, length of contact: Pt evaluated, case discussed w/ team, chart reviewed Patient Chief Complaint: pt seen in social area then later redirected to private area-denies any inabilities related to self care-health, finances and domicile-requires total care. rx adherent. Problems Identified/Issues Discussed: alteration in mood in cognition self pt in process of court appointed evaluation guardianship does not want to go back to previous -pt is not able to make decisions as has impaired insight and judgment requires structure for both medical, psychiatric, domicile and financial care pt process of being assigned guardian Medical Problems: per chart Diagnostic Results: per psychiatry per medicine per nursing per executive secretary social welfare per recreational worker DSM 5 Symptoms Update: appears baseline mood cognition pending transfer placement ltc Medication Change: No Medical Record Reviewed: Yes Consults ordered or reviewed: pt seen by medical provider Mental Status Examination - Cognitive Function Orientation: Person, Place, Situation, Time Memory: Impaired Concentration: Poor Association: Loose Fund of Knowledge: Poor Decription of patient's judgement and insights: impaired - Mood Mood: Neutral - Affect Affect: Broad - Speech Speech: Appropriate - Formal Thought Process Formal Thought Process: Loosening of associations - Suicidal Ideation Suicidal Ideation: No - Homicidal Ideation Homicidal Ideation: No Goal/Treatment Plan - Goal/Treatment Plan Need for Continued Stay: Severe functional impairment Progress Toward Problem(s) and Goals/Treatment Plan: inpt milieu adjust med per status vital signs and clinical observation per clinical status discharge planning pending ltc placement Estimated Date of D/C: 07/31/18 - Smoking Cessation Smoking Cessation Initiated: No Reason for not providing: pt deferred
[2018-07-23] MEDS: Multivitamin With Minerals Tab PO SCH (08:05)
[2018-07-23] MEDS: Magnesium Hydroxide Susp 30 ml UD PO SCH (09:00)
[2018-07-23] MEDS: Ammonium Lactate 12% Cream (140 g) TOP SCH (16:15)
--- NOTE | 2018-07-23 18:10 | PCM.PYCHPN ---
Psychiatric Progress Note - Psychiatric Progress Note Patient seen today, length of contact: Pt evaluated, case discussed w/ team, chart reviewed Patient Chief Complaint: pt seen in social area then later redirected to private area-denies any inabilities related to self care-health, finances and domicile-requires total care. rx adherent. seen seated in room, somewhat isolative, eating at room, possibly noting domains aspects of peers Problems Identified/Issues Discussed: alteration in mood in cognition self pt in process of court appointed evaluation guardianship does not want to go back to previous -pt is not able to make decisions as has impaired insight and judgment requires structure for both medical, psychiatric, domicile and financial care pt process of being assigned guardian Medical Problems: per chart Diagnostic Results: per psychiatry per medicine per nursing per renal social worker per recreational worker DSM 5 Symptoms Update: baseline cognitive status Medication Change: No Medical Record Reviewed: Yes Consults ordered or reviewed: pt is being seen by medical provider Mental Status Examination - Cognitive Function Orientation: Person, Place, Situation, Time Memory: Impaired Concentration: Poor Association: Loose Fund of Knowledge: Poor Decription of patient's judgement and insights: impaired - Mood Mood: Neutral - Affect Affect: Broad - Speech Speech: Appropriate - Formal Thought Process Formal Thought Process: Loosening of associations - Suicidal Ideation Suicidal Ideation: No - Homicidal Ideation Homicidal Ideation: No Goal/Treatment Plan - Goal/Treatment Plan Need for Continued Stay: Severe functional impairment Progress Toward Problem(s) and Goals/Treatment Plan: inpt milieu adjust med per status vital signs and clinical observation per clinical status discharge planning pending ltc placement Estimated Date of D/C: 07/31/18 - Smoking Cessation Smoking Cessation Initiated: No Reason for not providing: pt defers
[2018-07-24] MEDS: guaiFENesin 200 mg/10 ml Syrup UD PO PRN (08:27)
[2018-07-24] MEDS: Ammonium Lactate 12% Cream (140 g) TOP SCH (08:28)
[2018-07-24] MEDS: Multivitamin With Minerals Tab PO SCH (08:28)
[2018-07-24] MEDS: Magnesium Hydroxide Susp 30 ml UD PO SCH (09:00)
--- NOTE | 2018-07-24 19:03 | PCM.PYCHPN ---
Psychiatric Progress Note - Psychiatric Progress Note Patient seen today, length of contact: Pt evaluated, case discussed w/ team, chart reviewed Patient Chief Complaint: pt seen in social area then later redirected to private area-denies any inabilities related to self care-health, finances and domicile-requires total care. rx adherent. seen seated in room, somewhat isolative, eating at room, possibly noting domains aspects of peers Problems Identified/Issues Discussed: alteration in mood in cognition self pt in process of court appointed evaluation guardianship does not want to go back to previous -pt is not able to make decisions as has impaired insight and judgment requires structure for both medical, psychiatric, domicile and financial care pt process of being assigned guardian Medical Problems: per chart Diagnostic Results: per psychiatry per medicine per nursing per high school social science teacher per recreational worker Medication Change: No Medical Record Reviewed: Yes Mental Status Examination - Cognitive Function Orientation: Person, Place, Situation, Time Memory: Impaired Concentration: Poor Association: Loose Fund of Knowledge: Poor Decription of patient's judgement and insights: impaired - Mood Mood: Neutral - Affect Affect: Broad - Speech Speech: Appropriate - Formal Thought Process Formal Thought Process: Loosening of associations - Suicidal Ideation Suicidal Ideation: No - Homicidal Ideation Homicidal Ideation: No Goal/Treatment Plan - Goal/Treatment Plan Need for Continued Stay: Severe functional impairment Progress Toward Problem(s) and Goals/Treatment Plan: inpt milieu adjust med per status vital signs and clinical observation per clinical status discharge planning pending ltc placement Estimated Date of D/C: 07/31/18
[2018-07-25] MEDS: Multivitamin With Minerals Tab PO SCH (08:43)
[2018-07-25] MEDS: Ammonium Lactate 12% Cream (140 g) TOP SCH (08:44)
[2018-07-25] MEDS: Magnesium Hydroxide Susp 30 ml UD PO SCH (09:00)
--- NOTE | 2018-07-25 10:40 | CP.PCM.CON ---
History of Present Illness - History of Present Illness History of Present Illness: Podiatry consult note for Dr. Mirza, 68 yo male with pmhx of diabetes was seen at bedside for elongated toenails. Patient states his toenails are really long and would like to get them cut today. Patient denies any pain in his feet. Denies numbness or tingling to the feet. States he sees a assembler body regularly, however does not recall the name. Patient denies f/n/v/sob. Pmhx: diabetes and schizophrenia Pshx: denies Social: denies smoking or drinking alcohol Allergies: olive oil Review of Systems - Review of Systems All systems: reviewed and no additional remarkable complaints except Review of Systems: As per HPI Past Patient History - Infectious Disease Hx of Infectious Diseases: None - Past Medical History & Family History Past Medical History?: Yes - Past Social History Smoking Status: Former Smoker Alcohol: None - CARDIAC Hx Hypertension: Yes - NEUROLOGICAL Other/Comment: tremors - ENDOCRINE/METABOLIC Hx Diabetes Mellitus Type 1: Yes - MUSCULOSKELETAL/RHEUMATOLOGICAL Hx Falls: Yes Hx Unsteady Gait: Yes - GASTROINTESTINAL Hx Gastroesophageal Reflux: Yes - PSYCHIATRIC Hx Bipolar Disorder: Yes Hx Depression: Yes Hx Schizophrenia: Yes Hx Substance Use: No - SURGICAL HISTORY Hx Surgeries: Yes Other/Comment: retinal detachment in 1981 - ANESTHESIA Hx Anesthesia: No Meds Allergies/Adverse Reactions: Allergies Allergy/AdvReac Type Severity Reaction Status Date / Time olive oil Allergy Mild Verified 10/26/16 21:22 - Medications Medications: Current Medications Acetaminophen (Tylenol 325mg Tab) 650 mg PO Q4 PRN PRN Reason: Pain, moderate (4-7) Last Admin: 03/16/18 09:29 Dose: 650 mg Al Hydrox/Mg Hydrox/Simethicone (Maalox Plus 30 Ml) 30 ml PO Q4 PRN PRN Reason: Dyspepsia Last Admin: 05/04/18 12:40 Dose: 30 ml Amlodipine Besylate (Norvasc) 10 mg PO DAILY [facility] Last Admin: 07/25/18 08:44 Dose: 10 mg Bismuth Subsalicylate (Pepto-Bismol) 524 mg PO Q4 PRN PRN Reason: Diarrhea Docusate Sodium (Colace) 100 mg PO BID [facility] Last Admin: 07/25/18 08:43 Dose: 100 mg Famotidine (Pepcid) 20 mg PO HS [facility] Last Admin: 07/24/18 21:18 Dose: 20 mg Fluoxetine HCl (Prozac) 20 mg PO DAILY [facility] Last Admin: 07/25/18 08:42 Dose: 20 mg Furosemide (Lasix) 40 mg PO BID [facility] Last Admin: 07/25/18 08:44 Dose: 40 mg Gabapentin (Neurontin) 100 mg PO DAILY [facility] Last Admin: 07/25/18 08:43 Dose: 100 mg Guaifenesin (Robitussin) 200 mg PO Q6 PRN PRN Reason: Cough Last Admin: 07/24/18 08:27 Dose: 200 mg Lactic Acid (Lac-Hydrin 12% Cream (140 G)) 1 ea TOP DAILY [facility] Last Admin: 07/25/18 08:44 Dose: Not Given Magnesium Hydroxide (Milk Of Magnesia) 30 ml PO HS PRN PRN Reason: Constipation Last Admin: 06/08/18 02:41 Dose: 30 ml Magnesium Hydroxide (Milk Of Magnesia) 30 ml PO DAILY [facility] Last Admin: 07/24/18 09:00 Dose: Not Given Metformin HCl (Glucophage) 500 mg PO BIDWM [facility] Last Admin: 07/25/18 08:43 Dose: 500 mg Multivitamins/Minerals (Therapeutic-M Tab) 1 tab PO DAILY [facility] Last Admin: 07/25/18 08:43 Dose: 1 tab Olanzapine (Zyprexa) 20 mg PO HS [facility] Last Admin: 07/24/18 21:19 Dose: 20 mg Sennosides (Senokot Tab) 17.2 mg PO BID [facility] Last Admin: 07/25/18 08:42 Dose: 17.2 mg Thiamine HCl (Vitamin B1 Tab) 100 mg PO DAILY [facility] Last Admin: 07/25/18 08:43 Dose: 100 mg Physical Exam - Constitutional Appears: Well, Non-toxic, No Acute Distress - Head Exam Head Exam: ATRAUMATIC, NORMOCEPHALIC - Extremities Exam Additional comments: Bilateral lower extremity exam: Vascular: DP/PT 2/4 b/l, CFT <3 secs x10, TG warm to warm WNL, no edema or eryth ekaterina noted Derm: no open lesions, mildly elongated toenails, no clinical signs of infection Neuro: protective sensation intact via ipswich 4/4 b/l Ortho: no pain upon ROM of the foot or ankle joint. - Neurological Exam Neurological exam: Alert, Normal Gait, Oriented x3 - Psychiatric Exam Psychiatric exam: Normal Affect, Normal Mood Results - Vital Signs Recent Vital Signs: Last Vital Signs Temp 97.7 F 07/25/18 06:00 Pulse 87 07/25/18 08:44 Resp 18 07/25/18 06:00 BP 123/82 07/25/18 08:44 Pulse Ox 17 L 03/26/18 05:59 - Labs Result Diagrams: 02/18/18 17:40 02/22/18 06:00 Assessment & Plan - Assessment and Plan (Free Text) Assessment: 68 yo male with pmhx of diabetes seen at bedside for elongated toenails x 10 in bilateral feet Plan: Patient seen and evaluated History and plan discussed in detail with the attending, Dr Mirza Chart, labs and vitals reviewed; WNL Nails debrided x 10 using sterile nippers No complications Patient tolerated Thank you for the consult Podiatry will sign off; Please reconsult podiatry if needed. - Date & Time Date: 07/25/18 Time: 11:04
--- NOTE | 2018-07-25 18:44 | PCM.PYCHPN ---
Psychiatric Progress Note - Psychiatric Progress Note Patient seen today, length of contact: Pt evaluated, case discussed w/ team, chart reviewed Patient Chief Complaint: pt seen in social area then later redirected to private area-denies any inabilities related to self care-health, finances and domicile-requires total care. rx adherent. seen seated in room, somewhat isolative, eating at room, possibly noting domains aspects of peers Problems Identified/Issues Discussed: alteration in mood in cognition self pt in process of court appointed evaluation guardianship does not want to go back to previous -pt is not able to make decisions as has impaired insight and judgment requires structure for both medical, psychiatric, domicile and financial care pt process of being assigned guardian Medical Problems: per chart Diagnostic Results: per psychiatry per medicine per nursing per social insurance analyst per recreational worker Medication Change: No Medical Record Reviewed: Yes Mental Status Examination - Cognitive Function Orientation: Person, Place, Situation, Time Memory: Impaired Concentration: Poor Association: Loose Fund of Knowledge: Poor Decription of patient's judgement and insights: impaired - Mood Mood: Neutral - Affect Affect: Broad - Speech Speech: Appropriate - Formal Thought Process Formal Thought Process: Loosening of associations - Suicidal Ideation Suicidal Ideation: No - Homicidal Ideation Homicidal Ideation: No Goal/Treatment Plan - Goal/Treatment Plan Need for Continued Stay: Severe functional impairment Progress Toward Problem(s) and Goals/Treatment Plan: inpt milieu adjust med per status vital signs and clinical observation per clinical status discharge planning pending ltc placement Estimated Date of D/C: 07/31/18 - Smoking Cessation Smoking Cessation Initiated: No
[2018-07-26] MEDS: Ammonium Lactate 12% Cream (140 g) TOP SCH (08:45)
[2018-07-26] MEDS: Multivitamin With Minerals Tab PO SCH (08:48)
[2018-07-26] MEDS: Alum-Mag Hydrox-Simethicone Susp (30 mL) PO PRN ×2 (08:51→09:28)
[2018-07-26] MEDS: guaiFENesin 200 mg/10 ml Syrup UD PO PRN (08:54)
[2018-07-26] MEDS: Magnesium Hydroxide Susp 30 ml UD PO SCH (09:38)
--- NOTE | 2018-07-26 23:28 | PCM.PYCHPN ---
Psychiatric Progress Note - Psychiatric Progress Note Patient seen today, length of contact: Pt evaluated, case discussed w/ team, chart reviewed Patient Chief Complaint: pt seen in social area then later redirected to private area-denies any inabilities related to self care-health, finances and domicile-requires total care. rx adherent. pt later seen listening to music. was seen by temporary guardian this week, discharge planning in progress. rx adherent per staff isolative redirection to social area. Problems Identified/Issues Discussed: alteration in mood in cognition self pt visited by temporary guardian this week does not want to go back to previous -pt is not able to make decisions as has impaired insight and judgment requires structure for both medical, psychiatric, domicile and financial care Medical Problems: per chart Diagnostic Results: per psychiatry per medicine per nursing per addiction social worker per recreational worker DSM 5 Symptoms Update: baseline cognitive status requires total care Medication Change: No Medical Record Reviewed: Yes Consults ordered or reviewed: pt seen by medical team and podiatry team during this admission Mental Status Examination - Cognitive Function Orientation: Person, Place, Situation, Time Memory: Impaired Concentration: Poor Association: Loose Fund of Knowledge: Poor Decription of patient's judgement and insights: impaired - Mood Mood: Neutral - Affect Affect: Broad - Speech Speech: Appropriate - Formal Thought Process Formal Thought Process: Loosening of associations - Suicidal Ideation Suicidal Ideation: No - Homicidal Ideation Homicidal Ideation: No Goal/Treatment Plan - Goal/Treatment Plan Need for Continued Stay: Severe functional impairment Progress Toward Problem(s) and Goals/Treatment Plan: inpt milieu adjust med per status vital signs and clinical observation per clinical status discharge planning pending ltc placement-requires total care Estimated Date of D/C: 07/31/18 - Smoking Cessation Smoking Cessation Initiated: No Reason for not providing: pt defers
[2018-07-27 07:15] LABS: BASO % 0.9 % (0.0-2.0); EOS # 0.2 K/uL (0.0-0.7); LYMPH # 2.1 K/uL (1.0-4.3); MEAN CELL VOLUME 91.9 fl (80.0-94.0); MEAN CORPUSCULAR HEMOGLOBIN 30.4 pg (27.0-31.0); MEAN CORPUSCULAR HGB CONC 33.1 g/dL (33.0-37.0); MEAN PLATELET VOLUME 7.3 fl (7.2-11.7); MONO # 0.4 K/uL (0.0-0.8); MONO % 9.2 % (0.0-10.0); NEUT # 2.1 K/uL (1.8-7.0); NEUT % 42.9 % (50.0-75.0); NRBC % 0.1 % (0.0-0.0); RBC 4.28 Mil/uL (4.40-5.90); RED CELL DISTRIBUTION WIDTH 13.4 % (11.5-14.5); WHITE BLOOD COUNT 4.8 K/uL (4.8-10.8)
[2018-07-27 07:21] LABS: ALB/GLOB RATIO 1.2 (1.0-2.1); ALBUMIN 4.2 g/dL (3.5-5.0); ALT/SGPT 25 U/L (21-72); AST/SGOT 24 U/L (17-59); BLOOD UREA NITROGEN 14 mg/dl (9-20); CALCIUM 9.8 mg/dL (8.4-10.2); GFR NON-AFRICAN AMERICAN > 60
[2018-07-27] MEDS: Ammonium Lactate 12% Cream (140 g) TOP SCH (09:01)
[2018-07-27] MEDS: Multivitamin With Minerals Tab PO SCH (09:01)
[2018-07-27] MEDS: Magnesium Hydroxide Susp 30 ml UD PO SCH (09:09)
[2018-07-28] MEDS: Magnesium Hydroxide Susp 30 ml UD PO SCH (09:23)
[2018-07-28] MEDS: Multivitamin With Minerals Tab PO SCH (09:23)
[2018-07-28] MEDS: Ammonium Lactate 12% Cream (140 g) TOP SCH (09:25)
[2018-07-28] MEDS: guaiFENesin 200 mg/10 ml Syrup UD PO PRN (22:23)
--- NOTE | 2018-07-29 08:03 | PCM.PYCHPN ---
Psychiatric Progress Note - Psychiatric Progress Note Patient seen today, length of contact: Pt evaluated, case discussed w/ team, chart reviewed Patient Chief Complaint: Inability to care for self Problems Identified/Issues Discussed: No new events. Patient reports his mood is stable. Temporary guardian has been assigned. [facility] to determine disposition planning. Medication Change: No Medical Record Reviewed: Yes Consults ordered or reviewed: Medicine consult, Neurology consult, Podiatry consult Mental Status Examination - Cognitive Function Orientation: Person, Place, Situation, Time Memory: Impaired Concentration: Poor Association: Loose Fund of Knowledge: Poor Decription of patient's judgement and insights: Chronic poor I/J - Mood Mood: Neutral - Affect Affect: Broad - Speech Speech: Appropriate - Formal Thought Process Formal Thought Process: Loosening of associations Psychotic Thoughts and Behaviors: NO AH/VH/paranoia - Suicidal Ideation Suicidal Ideation: No - Homicidal Ideation Homicidal Ideation: No Goal/Treatment Plan - Goal/Treatment Plan Need for Continued Stay: Severe functional impairment Progress Toward Problem(s) and Goals/Treatment Plan: Schizoaffective Disorder; Major Neurocognitive Impairment -Individual and group therapy -Medicine consult, Neurology consult, Podiatry consult -Continue Zyprexa 20 mg PO HS -Continue Prozac 20 mg PO Daily -Disposition planning- temporary guardian assigned; [facility] to determine disposition planning Estimated Date of D/C: 08/09/18
[2018-07-29] MEDS: Multivitamin With Minerals Tab PO SCH (08:26)
[2018-07-29] MEDS: Ammonium Lactate 12% Cream (140 g) TOP SCH (08:27)
[2018-07-29] MEDS: Magnesium Hydroxide Susp 30 ml UD PO SCH (08:31)
[2018-07-29] MEDS ORDERED: Ammonium Lactate 12% Cream (140 g) TOP PRN (10:30)
[2018-07-29] MEDS: guaiFENesin 200 mg/10 ml Syrup UD PO PRN (21:22)
[2018-07-30] MEDS: guaiFENesin 200 mg/10 ml Syrup UD PO PRN (04:52)
[2018-07-30] MEDS: Magnesium Hydroxide Susp 30 ml UD PO SCH (08:21)
--- NOTE | 2018-07-30 08:23 | PCM.PYCHPN ---
Psychiatric Progress Note - Psychiatric Progress Note Patient seen today, length of contact: Pt evaluated, case discussed w/ team, chart reviewed Patient Chief Complaint: Inability to care for self Problems Identified/Issues Discussed: No new events overnight. Patient reports his mood is stable. Temporary guardian has been assigned. [facility] to determine disposition planning. Medication Change: No Medical Record Reviewed: Yes Consults ordered or reviewed: Medicine consult, Neurology consult, Podiatry consult Mental Status Examination - Cognitive Function Orientation: Person, Place, Situation, Time Memory: Impaired Concentration: Poor Association: Loose Fund of Knowledge: Poor Decription of patient's judgement and insights: Chronic poor I/J - Mood Mood: Neutral - Affect Affect: Broad - Speech Speech: Appropriate - Formal Thought Process Formal Thought Process: Loosening of associations Psychotic Thoughts and Behaviors: NO AH/VH/paranoia - Suicidal Ideation Suicidal Ideation: No - Homicidal Ideation Homicidal Ideation: No Goal/Treatment Plan - Goal/Treatment Plan Need for Continued Stay: Severe functional impairment Progress Toward Problem(s) and Goals/Treatment Plan: Schizoaffective Disorder; Major Neurocognitive Impairment -Individual and group therapy -Medicine consult, Neurology consult, Podiatry consult -Continue Zyprexa 20 mg PO HS -Continue Prozac 20 mg PO Daily -Disposition planning- temporary guardian assigned; pending [facility] to determine disposition planning Estimated Date of D/C: 08/09/18
[2018-07-30] MEDS: Multivitamin With Minerals Tab PO SCH (08:24)
[2018-07-31] MEDS: guaiFENesin 200 mg/10 ml Syrup UD PO PRN ×2 (06:14→13:53)
--- NOTE | 2018-07-31 08:09 | PCM.PYCHPN ---
Psychiatric Progress Note - Psychiatric Progress Note Patient seen today, length of contact: Pt evaluated, case discussed w/ team, chart reviewed Patient Chief Complaint: Inability to care for self Problems Identified/Issues Discussed: No new events . Patient reports his mood is stable. Temporary guardian has been assigned. [facility] to determine disposition planning. Medication Change: No Medical Record Reviewed: Yes Consults ordered or reviewed: Medicine consult, Neurology consult, Podiatry consult Mental Status Examination - Cognitive Function Orientation: Person, Place, Situation, Time Memory: Impaired Concentration: Poor Association: Loose Fund of Knowledge: Poor Decription of patient's judgement and insights: Chronic poor I/J - Mood Mood: Neutral - Affect Affect: Broad - Speech Speech: Appropriate - Formal Thought Process Formal Thought Process: Loosening of associations Psychotic Thoughts and Behaviors: NO AH/VH/paranoia - Suicidal Ideation Suicidal Ideation: No - Homicidal Ideation Homicidal Ideation: No Goal/Treatment Plan - Goal/Treatment Plan Need for Continued Stay: Severe functional impairment Progress Toward Problem(s) and Goals/Treatment Plan: Schizoaffective Disorder; Major Neurocognitive Impairment -Individual and group therapy -Medicine consult, Neurology consult, Podiatry consult -Continue Zyprexa 20 mg PO HS -Continue Prozac 20 mg PO Daily -Disposition planning- temporary guardian assigned; pending [facility] to determine disposition planning Estimated Date of D/C: 08/09/18
[2018-07-31] MEDS: Multivitamin With Minerals Tab PO SCH (08:25)
[2018-07-31] MEDS: Magnesium Hydroxide Susp 30 ml UD PO SCH (08:27)
[2018-08-01] MEDS: Multivitamin With Minerals Tab PO SCH (08:05)
[2018-08-01] MEDS: Magnesium Hydroxide Susp 30 ml UD PO SCH (08:09)
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
--- NOTE | 2018-08-01 09:29 | PCM.PYCHPN ---
Psychiatric Progress Note - Psychiatric Progress Note Patient seen today, length of contact: Pt evaluated, case discussed w/ team, chart reviewed Patient Chief Complaint: Inability to care for self Problems Identified/Issues Discussed: No new events. Patient reports his mood is stable. Temporary guardian has been assigned. Patient is at his baseline of functioning and will be referred for long-term placement. Patient is unable to care for himself due to chronic neurocognitive impairments. MOCA on 08/01/18-; patient scored deficits in visuospatial/executive function, memory and language Medication Change: No Medical Record Reviewed: Yes Consults ordered or reviewed: Medicine consult, Neurology consult, Podiatry consult Mental Status Examination - Cognitive Function Orientation: Person, Place, Situation, Time Memory: Impaired Attention: Poor Concentration: Poor Association: Loose Fund of Knowledge: Poor Decription of patient's judgement and insights: Chronic poor insight/judgment due to cognitive impairment - Mood Mood: Neutral - Affect Affect: Broad - Speech Speech: Appropriate - Formal Thought Process Formal Thought Process: Loosening of associations Psychotic Thoughts and Behaviors: NO AH/VH/paranoia/delusions - Suicidal Ideation Suicidal Ideation: No - Homicidal Ideation Homicidal Ideation: No Goal/Treatment Plan - Goal/Treatment Plan Need for Continued Stay: Severe functional impairment Progress Toward Problem(s) and Goals/Treatment Plan: Schizoaffective Disorder; Major Neurocognitive Impairment -Individual and group therapy -Medicine consult, Neurology consult, Podiatry consult -Continue Zyprexa 20 mg PO HS -Continue Prozac 20 mg PO Daily -Disposition planning- will start referral for oysterman placement as recommended by [facility] Estimated Date of D/C: 08/06/18
--- NOTE | 2018-08-02 08:36 | PCM.PYCHPN ---
Psychiatric Progress Note - Psychiatric Progress Note Patient seen today, length of contact: Pt evaluated, case discussed w/ team, chart reviewed Patient Chief Complaint: Inability to care for self Problems Identified/Issues Discussed: No new events overnight. Patient reports his mood is stable. Temporary guardian has been assigned. Patient is at his baseline of functioning and will be referred for halfway placement. Patient is unable to care for himself due to chronic neurocognitive impairments. Medication Change: No Medical Record Reviewed: Yes Consults ordered or reviewed: Medicine consult, Neurology consult, Podiatry consult Mental Status Examination - Cognitive Function Orientation: Person, Place, Situation, Time Memory: Impaired Attention: Poor Concentration: Poor Association: Loose Fund of Knowledge: Poor Decription of patient's judgement and insights: Chronic poor insight/judgment due to cognitive impairment - Mood Mood: Neutral - Affect Affect: Broad - Speech Speech: Appropriate - Formal Thought Process Formal Thought Process: Loosening of associations Psychotic Thoughts and Behaviors: NO AH/VH/paranoia/delusions - Suicidal Ideation Suicidal Ideation: No - Homicidal Ideation Homicidal Ideation: No Goal/Treatment Plan - Goal/Treatment Plan Need for Continued Stay: Severe functional impairment Progress Toward Problem(s) and Goals/Treatment Plan: Major Neurocognitive Disorder; Schizoaffective Disorder -Individual and group therapy -Medicine consult, Neurology consult, Podiatry consult -Continue Zyprexa 20 mg PO HS -Continue Prozac 20 mg PO Daily -Disposition planning- will start referral for cement finisher helper placement as recommended by [facility] Estimated Date of D/C: 08/06/18
[2018-08-02] MEDS: Multivitamin With Minerals Tab PO SCH (08:48)
[2018-08-02] MEDS: guaiFENesin 200 mg/10 ml Syrup UD PO PRN (08:51)
[2018-08-02] MEDS: Magnesium Hydroxide Susp 30 ml UD PO SCH (08:52)
[2018-08-03] MEDS: Magnesium Hydroxide Susp 30 ml UD PO SCH (08:21)
[2018-08-03] MEDS: Multivitamin With Minerals Tab PO SCH (08:24)
[2018-08-03] MEDS: guaiFENesin 200 mg/10 ml Syrup UD PO PRN (08:25)
--- NOTE | 2018-08-03 14:28 | PCM.PYCHPN ---
Psychiatric Progress Note - Psychiatric Progress Note Patient seen today, length of contact: Pt evaluated, case discussed w/ team, chart reviewed Patient Chief Complaint: I am alright Problems Identified/Issues Discussed: pt evaluated in day room, reported mood fine, appropriate affect, no behavioral disturbances reported by staff, compliant with medications no reported side effects , denied command hallucinations, denied suicidal or homicidal ideation DSM 5 Symptoms Update: major neurocognitive disorder Medication Change: No Medical Record Reviewed: Yes Mental Status Examination - Cognitive Function Orientation: Person, Place, Situation, Time Memory: Impaired Attention: Poor Concentration: Poor Association: Loose Fund of Knowledge: Poor - Mood Mood: Neutral - Affect Affect: Broad - Speech Speech: Appropriate - Formal Thought Process Formal Thought Process: Loosening of associations - Suicidal Ideation Suicidal Ideation: No - Homicidal Ideation Homicidal Ideation: No Goal/Treatment Plan - Goal/Treatment Plan Need for Continued Stay: Severe functional impairment Progress Toward Problem(s) and Goals/Treatment Plan: continue current management group and supportive therapy disposition planning Estimated Date of D/C: 08/06/18
[2018-08-04] MEDS: Multivitamin With Minerals Tab PO SCH (08:18)
[2018-08-04] MEDS: Magnesium Hydroxide Susp 30 ml UD PO SCH (08:22)
--- NOTE | 2018-08-04 10:32 | PCM.PYCHPN ---
Psychiatric Progress Note - Psychiatric Progress Note Patient seen today, length of contact: Pt evaluated, case discussed w/ team, chart reviewed Patient Chief Complaint: I am ok Problems Identified/Issues Discussed: pt evaluated , reported mood fine, constricted affect, no behavioral disturbances reported by staff, compliant with medications no reported side effects , denied command hallucinations, denied suicidal or homicidal ideation Medication Change: No Medical Record Reviewed: Yes Mental Status Examination - Cognitive Function Orientation: Person, Place, Situation, Time Memory: Impaired Attention: Poor Concentration: Poor Association: Loose Fund of Knowledge: Poor - Mood Mood: Neutral - Affect Affect: Broad - Speech Speech: Appropriate - Formal Thought Process Formal Thought Process: Loosening of associations - Suicidal Ideation Suicidal Ideation: No - Homicidal Ideation Homicidal Ideation: No Goal/Treatment Plan - Goal/Treatment Plan Need for Continued Stay: Severe functional impairment Progress Toward Problem(s) and Goals/Treatment Plan: continue current management group and supportive therapy disposition planning Estimated Date of D/C: 08/06/18
[2018-08-05] MEDS: Multivitamin With Minerals Tab PO SCH (08:35)
[2018-08-05] MEDS: Magnesium Hydroxide Susp 30 ml UD PO SCH (08:37)
--- NOTE | 2018-08-05 10:18 | PCM.PYCHPN ---
Psychiatric Progress Note - Psychiatric Progress Note Patient seen today, length of contact: Pt evaluated, case discussed w/ team, chart reviewed Patient Chief Complaint: Inability to care for self Problems Identified/Issues Discussed: No new events over the weekend. Patient reports his mood is stable. Temporary guardian has been assigned. Patient is at his baseline of functioning and will be referred for skilled nursing placement. Patient is unable to care for himself due to chronic neurocognitive impairments. No behavioral disturbances. Medication Change: No Medical Record Reviewed: Yes Consults ordered or reviewed: Medicine consult, Neurology consult, Podiatry consult Mental Status Examination - Cognitive Function Orientation: Person, Place, Situation, Time Memory: Impaired Attention: Poor Concentration: Poor Association: Loose Fund of Knowledge: Poor Decription of patient's judgement and insights: Chronic limitations in insight/judgment due to dementia - Mood Mood: Neutral - Affect Affect: Broad - Speech Speech: Appropriate - Formal Thought Process Formal Thought Process: Loosening of associations Psychotic Thoughts and Behaviors: No AH/VH/paranoia/delusions - Suicidal Ideation Suicidal Ideation: No - Homicidal Ideation Homicidal Ideation: No Goal/Treatment Plan - Goal/Treatment Plan Need for Continued Stay: Severe functional impairment Progress Toward Problem(s) and Goals/Treatment Plan: Major Neurocognitive Disorder; Schizoaffective Disorder -Individual and group therapy -Medicine consult, Neurology consult, Podiatry consult -Continue Zyprexa 20 mg PO HS -Continue Prozac 20 mg PO Daily -Disposition planning- will continue referral for terminal worker placement as recommended by [facility] Estimated Date of D/C: 08/08/18
[2018-08-05] MEDS: guaiFENesin 100 mg/5 ml Syrup UD PO PRN (21:00)
[2018-08-06] MEDS: Multivitamin With Minerals Tab PO SCH (08:05)
[2018-08-06] MEDS: Magnesium Hydroxide Susp 30 ml UD PO SCH (08:09)
--- NOTE | 2018-08-06 08:13 | PCM.PYCHPN ---
Psychiatric Progress Note - Psychiatric Progress Note Patient seen today, length of contact: Pt evaluated, case discussed w/ team, chart reviewed Patient Chief Complaint: Inability to care for self Problems Identified/Issues Discussed: No new events overnight. Patient reports his mood is stable. Temporary guardian has been assigned. Patient is at his baseline of functioning and will be referred for custodial placement. Patient is unable to care for himself due to chronic neurocognitive impairments. No behavioral disturbances. Medication Change: No Medical Record Reviewed: Yes Consults ordered or reviewed: Medicine consult, Neurology consult, Podiatry consult Mental Status Examination - Cognitive Function Orientation: Person, Place, Situation, Time Memory: Impaired Attention: Poor Concentration: Poor Association: Loose Fund of Knowledge: Poor Decription of patient's judgement and insights: Chronic limitations in insight/judgment due to dementia - Mood Mood: Neutral - Affect Affect: Broad - Speech Speech: Appropriate - Formal Thought Process Formal Thought Process: Loosening of associations Psychotic Thoughts and Behaviors: No AH/VH/paranoia/delusions - Suicidal Ideation Suicidal Ideation: No - Homicidal Ideation Homicidal Ideation: No Goal/Treatment Plan - Goal/Treatment Plan Need for Continued Stay: Severe functional impairment Progress Toward Problem(s) and Goals/Treatment Plan: Major Neurocognitive Disorder; Schizoaffective Disorder -Individual and group therapy -Medicine consult, Neurology consult, Podiatry consult -Continue Zyprexa 20 mg PO HS -Continue Prozac 20 mg PO Daily -Disposition planning- will continue referral for custodial placement as recommended by [facility]
--- NOTE | 2018-08-07 07:56 | PCM.PYCHPN ---
Psychiatric Progress Note - Psychiatric Progress Note Patient seen today, length of contact: Pt evaluated, case discussed w/ team, chart reviewed Patient Chief Complaint: Inability to care for self Problems Identified/Issues Discussed: No new events. Patient reports his mood is stable. Temporary guardian has been assigned. Patient is at his baseline of functioning and will be referred for watermelon inspector placement. Patient is unable to care for himself due to chronic neurocognitive impairments. No behavioral disturbances. Medication Change: No Medical Record Reviewed: Yes Consults ordered or reviewed: Medicine consult, Neurology consult, Podiatry consult Mental Status Examination - Cognitive Function Orientation: Person, Place, Situation, Time Memory: Impaired Attention: Poor Concentration: Poor Association: Loose Fund of Knowledge: Poor Decription of patient's judgement and insights: Chronic limitations in insight/judgment due to dementia - Mood Mood: Neutral - Affect Affect: Broad - Speech Speech: Appropriate - Formal Thought Process Formal Thought Process: Loosening of associations Psychotic Thoughts and Behaviors: No AH/VH/paranoia/delusions - Suicidal Ideation Suicidal Ideation: No - Homicidal Ideation Homicidal Ideation: No Goal/Treatment Plan - Goal/Treatment Plan Need for Continued Stay: Severe functional impairment Progress Toward Problem(s) and Goals/Treatment Plan: Major Neurocognitive Disorder; Schizoaffective Disorder -Individual and group therapy -Medicine consult, Neurology consult, Podiatry consult -Continue Zyprexa 20 mg PO HS -Continue Prozac 20 mg PO Daily -Disposition planning- will continue referral for watermelon inspector placement as recommended by [facility]
[2018-08-07] MEDS: Multivitamin With Minerals Tab PO SCH (08:12)
[2018-08-07] MEDS: Magnesium Hydroxide Susp 30 ml UD PO SCH (12:36)
--- NOTE | 2018-08-08 07:52 | PCM.PYCHPN ---
Psychiatric Progress Note - Psychiatric Progress Note Patient seen today, length of contact: Pt evaluated, case discussed w/ team, chart reviewed Patient Chief Complaint: Inability to care for self Problems Identified/Issues Discussed: Pending long term placement. No new events. Patient reports his mood is stable. Patient is unable to care for himself due to chronic neurocognitive impairments. No behavioral disturbances. Medication Change: No Medical Record Reviewed: Yes Consults ordered or reviewed: Medicine consult, Neurology consult, Podiatry consult Mental Status Examination - Cognitive Function Orientation: Person, Place, Situation, Time Memory: Impaired Attention: Poor Concentration: Poor Association: Loose Fund of Knowledge: Poor Decription of patient's judgement and insights: Chronic limitations in insight/judgment due to dementia - Mood Mood: Neutral - Affect Affect: Broad - Speech Speech: Appropriate - Formal Thought Process Formal Thought Process: Loosening of associations Psychotic Thoughts and Behaviors: No AH/VH/paranoia/delusions - Suicidal Ideation Suicidal Ideation: No - Homicidal Ideation Homicidal Ideation: No Goal/Treatment Plan - Goal/Treatment Plan Need for Continued Stay: Severe functional impairment Progress Toward Problem(s) and Goals/Treatment Plan: Major Neurocognitive Disorder; Schizoaffective Disorder -Individual and group therapy -Medicine consult, Neurology consult, Podiatry consult -Continue Zyprexa 20 mg PO HS -Continue Prozac 20 mg PO Daily -Disposition planning- will continue referral for halfway placement as recommended by [facility]
--- NOTE | 2018-08-08 08:29 | PCM.BM ---
Treatment Plan Problems - Problems identified on initial assessmt Delusions Date Initiated: 02/19/18 Time Initiated: 00:36 Assessment reference: NA Status: Active Medication nonadherence Date Initiated: 02/19/18 Time Initiated: 00:37 Assessment reference: NA Status: Active Agitated/Aggressive behavior Time Initiated: 11:35 Treatment assets and liabiliti Patient Assests: cooperative, negotiates basic needs Patient Liabilities: poor support system, medical problems - Milieu Protocol Maintain good personal hygiene: daily Encourage regular showers, daily Remind patient to perform daily oral care, daily Assist patient to perform ADL's Conduct patient checks and document Observation sheet: Q15 minutes Maintain personal safety: every shift Educate patient to report safety concerns to staff, every shift Monitor environment for contraband/sharps Medication safety: Monitor for expected outcome, potential side effects: every shift, Assess barriers to learning: every shift, Assess readiness for medication education: every shift Milieu Narrative: Major Neurocognitive Disorder; Schizoaffective Disorder -Individual and group therapy -Medicine consult, Neurology consult, Podiatry consult -Continue Zyprexa 20 mg PO HS -Continue Prozac 20 mg PO Daily -Disposition planning- will continue referral for intermediate card tender placement as recommended by [facility] Family Contact Family involvement: Famliy/SO not involved Family contact: Telephone contact initiated by staff Family contact name: Zhane - Friend Family contacted how many times per week?: 2 Family contact comment: Supervisor [employer] spoke with pt's support and former homemaker, Zhane [phone], for collateral and provide Zhane with visiting hours. Zhane reported that she is pt's only support and he does not have friends or family. She has known pt for four years and was his homemaker for 2 of them. Zhane reported that last time she visited pt at [facility] pt had packed all his belongings and wanted to leave the facility. - Goals for Treatment Patient goals for treatment: Pt reported he wants to be referred to a shelter and not return to [facility]. Discharge/Continuing Care - Education Needs Education Needs: Patient Medication, Patient Diagnosis/Disease Process, Patient Coping Skills, Patient Placement options, Patient Community resources, Patient Aftercare Safety Plan - Discharge Discharge Criteria: Tolerates medication w/o severe side effects, Free of paranoid thoughts, Free of agitation, Normal sleep pattern, Ability to care for self, Reduction of target symptoms Discharge to:: [facility] - Treatment Team Participation Patient/Family/SO Statement: Major Neurocognitive Disorder; Schizoaffective Disorder -Individual and group therapy -Medicine consult, Neurology consult, Podiatry consult -Continue Zyprexa 20 mg PO HS -Continue Prozac 20 mg PO Daily -Disposition planning- will continue referral for custodial placement as recommended by [facility] Discussed with Family/SO: Yes Was Patient/Family/SO present at Treatment Team Meeting: Yes Treatment Plan Review - Problem Delusions Date Initiated: 02/18/18 Time Initiated: 00:36 Progress toward outcomes: improved Medication nonadherence Date Initiated: 02/18/18 Time Initiated: 00:37 Progress toward outcomes: resolved (Pt is compliant with prescribed medi cations.) Agitated/Aggressive behavior Date Initiated: 04/15/18 Time Initiated: 11:35 Progress toward outcomes: improved (Pt has ot displayed hortensia ggressive/assaultive bx's on the unit. At times, pt is verbally inappropriate with staff members and of peers and pt does not believe he is in the wrong.) - Discharge / Continuing Care Discharge to:: [facility]: Residential treatment Health Needs: Follow up care/test, Medications/Rx (Pt seen in treatment team for review on 08/07/18. Pt offered no complaints or questions at this time. Pt reported he feels "ok." Pt reported a good conversation with Ran from [facility]. Pt denied SI/HI and AVT hallucinations. )
[2018-08-08] MEDS: Magnesium Hydroxide Susp 30 ml UD PO SCH (08:46)
[2018-08-08] MEDS: Multivitamin With Minerals Tab PO SCH (08:49)
[2018-08-08] MEDS: guaiFENesin 100 mg/5 ml Syrup UD PO PRN ×2 (13:16→22:13)
--- NOTE | 2018-08-09 08:01 | PCM.PYCHPN ---
Psychiatric Progress Note - Psychiatric Progress Note Patient seen today, length of contact: Pt evaluated, case discussed w/ team, chart reviewed Patient Chief Complaint: Inability to care for self Problems Identified/Issues Discussed: No new events overnight. Pending halfway placement. Patient reports his mood is stable. Patient is unable to care for himself due to chronic neurocognitive impairments. No behavioral disturbances. Medication Change: No Medical Record Reviewed: Yes Consults ordered or reviewed: Medicine consult, Neurology consult, Podiatry consult Mental Status Examination - Cognitive Function Orientation: Person, Place, Situation, Time Memory: Impaired Attention: Poor Concentration: Poor Association: Loose Fund of Knowledge: Poor Decription of patient's judgement and insights: Chronic limitations in insight/judgment due to dementia - Mood Mood: Neutral - Affect Affect: Broad - Speech Speech: Appropriate - Formal Thought Process Formal Thought Process: Loosening of associations Psychotic Thoughts and Behaviors: No AH/VH/paranoia/delusions - Suicidal Ideation Suicidal Ideation: No - Homicidal Ideation Homicidal Ideation: No Goal/Treatment Plan - Goal/Treatment Plan Need for Continued Stay: Severe functional impairment Progress Toward Problem(s) and Goals/Treatment Plan: Major Neurocognitive Disorder; Schizoaffective Disorder -Individual and group therapy -Medicine consult, Neurology consult, Podiatry consult -Continue Zyprexa 20 mg PO HS -Continue Prozac 20 mg PO Daily -Disposition planning- will continue referral for halfway placement as recommended by [facility]
[2018-08-09] MEDS: Multivitamin With Minerals Tab PO SCH (08:24)
[2018-08-09] MEDS: Magnesium Hydroxide Susp 30 ml UD PO SCH (08:25)
[2018-08-09] MEDS: guaiFENesin 100 mg/5 ml Syrup UD PO PRN (08:27)
[2018-08-10] MEDS: Multivitamin With Minerals Tab PO SCH (08:40)
[2018-08-10] MEDS: Magnesium Hydroxide Susp 30 ml UD PO SCH (08:43)
--- NOTE | 2018-08-10 09:30 | PCM.PYCHPN ---
Psychiatric Progress Note - Psychiatric Progress Note Patient seen today, length of contact: Pt evaluated, case discussed w/ team, chart reviewed Patient Chief Complaint: Inability to care for self Problems Identified/Issues Discussed: No new events. Pending halfway placement. Patient reports his mood is stable. Patient is unable to care for himself due to chronic neurocognitive impairments. No behavioral disturbances. Medication Change: No Medical Record Reviewed: Yes Consults ordered or reviewed: Medicine consult, Neurology consult, Podiatry consult Mental Status Examination - Cognitive Function Orientation: Person, Place, Situation, Time Memory: Impaired Attention: Poor Concentration: Poor Association: Loose Fund of Knowledge: Poor Decription of patient's judgement and insights: Chronic limitations in insight/judgment due to dementia - Mood Mood: Neutral - Affect Affect: Broad - Speech Speech: Appropriate - Formal Thought Process Formal Thought Process: Loosening of associations Psychotic Thoughts and Behaviors: No AH/VH/paranoia/delusions - Suicidal Ideation Suicidal Ideation: No - Homicidal Ideation Homicidal Ideation: No Goal/Treatment Plan - Goal/Treatment Plan Need for Continued Stay: Severe functional impairment Progress Toward Problem(s) and Goals/Treatment Plan: Major Neurocognitive Disorder; Schizoaffective Disorder -Individual and group therapy -Medicine consult, Neurology consult, Podiatry consult -Continue Zyprexa 20 mg PO HS -Continue Prozac 20 mg PO Daily -Disposition planning- will continue referral for residential placement as recommended by [facility]
--- NOTE | 2018-08-11 08:19 | PCM.PYCHPN ---
Psychiatric Progress Note - Psychiatric Progress Note Patient seen today, length of contact: Pt evaluated, case discussed w/ team, chart reviewed Patient Chief Complaint: Inability to care for self Problems Identified/Issues Discussed: Patient reports his mood is stable. Pending [facility] placement. Patient is unable to care for himself due to chronic neurocognitive impairments. No behavioral disturbances. Medication Change: No Medical Record Reviewed: Yes Consults ordered or reviewed: Medicine consult, Neurology consult, Podiatry consult Mental Status Examination - Cognitive Function Orientation: Person, Place, Situation, Time Memory: Impaired Attention: Poor Concentration: Poor Association: Loose Fund of Knowledge: Poor Decription of patient's judgement and insights: Chronic limitations in insight/judgment due to dementia - Mood Mood: Neutral - Affect Affect: Broad - Speech Speech: Appropriate - Formal Thought Process Formal Thought Process: Loosening of associations Psychotic Thoughts and Behaviors: No AH/VH/paranoia/delusions - Suicidal Ideation Suicidal Ideation: No - Homicidal Ideation Homicidal Ideation: No Goal/Treatment Plan - Goal/Treatment Plan Need for Continued Stay: Severe functional impairment Progress Toward Problem(s) and Goals/Treatment Plan: Major Neurocognitive Disorder; Schizoaffective Disorder -Individual and group therapy -Medicine consult, Neurology consult, Podiatry consult -Continue Zyprexa 20 mg PO HS -Continue Prozac 20 mg PO Daily -Disposition planning- will continue referral for [facility] as [facility] Estimated Date of D/C: 08/14/18
[2018-08-11] MEDS: Multivitamin With Minerals Tab PO SCH (08:49)
[2018-08-11] MEDS: Alum-Mag Hydrox-Simethicone Susp (30 mL) PO PRN (08:51)
[2018-08-11] MEDS: Magnesium Hydroxide Susp 30 ml UD PO SCH (08:53)
--- NOTE | 2018-08-12 08:15 | PCM.PYCHPN ---
Psychiatric Progress Note - Psychiatric Progress Note Patient seen today, length of contact: Pt evaluated, case discussed w/ team, chart reviewed Patient Chief Complaint: Inability to care for self Problems Identified/Issues Discussed: No significant events over the weekend. Patient reports his mood is stable. Pending alf placement. Patient is unable to care for himself due to chronic neurocognitive impairments. No behavioral disturbances. Medication Change: No Medical Record Reviewed: Yes Consults ordered or reviewed: Medicine consult, Neurology consult, Podiatry consult Mental Status Examination - Cognitive Function Orientation: Person, Place, Situation, Time Memory: Impaired Attention: Poor Concentration: Poor Association: Loose Fund of Knowledge: Poor Decription of patient's judgement and insights: Chronic limitations in insight/judgment due to dementia - Mood Mood: Neutral - Affect Affect: Broad - Speech Speech: Appropriate - Formal Thought Process Formal Thought Process: Loosening of associations Psychotic Thoughts and Behaviors: No AH/VH/paranoia/delusions - Suicidal Ideation Suicidal Ideation: No - Homicidal Ideation Homicidal Ideation: No Goal/Treatment Plan - Goal/Treatment Plan Need for Continued Stay: Severe functional impairment Progress Toward Problem(s) and Goals/Treatment Plan: Major Neurocognitive Disorder; Schizoaffective Disorder -Individual and group therapy -Medicine consult, Neurology consult, Podiatry consult -Continue Zyprexa 20 mg PO HS -Continue Prozac 20 mg PO Daily -Disposition planning- will continue referral for terminal operations manager placement as recommended by [facility] Estimated Date of D/C: 08/14/18
[2018-08-12] MEDS: Multivitamin With Minerals Tab PO SCH (08:27)
[2018-08-12] MEDS: Magnesium Hydroxide Susp 30 ml UD PO SCH (08:29)
--- NOTE | 2018-08-13 07:51 | PCM.PYCHPN ---
Psychiatric Progress Note - Psychiatric Progress Note Patient seen today, length of contact: Pt evaluated, case discussed w/ team, chart reviewed Patient Chief Complaint: Inability to care for self Problems Identified/Issues Discussed: No new events. Patient reports his mood is stable. Pending care home placement. Patient is unable to care for himself due to chronic neurocognitive impairments. No behavioral disturbances. Medication Change: No Medical Record Reviewed: Yes Consults ordered or reviewed: Medicine consult, Neurology consult, Podiatry consult Mental Status Examination - Cognitive Function Orientation: Person, Place, Situation, Time Memory: Impaired Attention: Poor Concentration: Poor Association: Loose Fund of Knowledge: Poor Decription of patient's judgement and insights: Chronic limitations in insight/judgment due to dementia - Mood Mood: Neutral - Affect Affect: Broad - Speech Speech: Appropriate - Formal Thought Process Formal Thought Process: Loosening of associations Psychotic Thoughts and Behaviors: No AH/VH/paranoia/delusions - Suicidal Ideation Suicidal Ideation: No - Homicidal Ideation Homicidal Ideation: No Goal/Treatment Plan - Goal/Treatment Plan Need for Continued Stay: Severe functional impairment Progress Toward Problem(s) and Goals/Treatment Plan: Major Neurocognitive Disorder; Schizoaffective Disorder -Individual and group therapy -Medicine consult, Neurology consult, Podiatry consult -Continue Zyprexa 20 mg PO HS -Continue Prozac 20 mg PO Daily -Disposition planning- will continue referral for [facility] placement as recommended by [facility] Estimated Date of D/C: 08/14/18
[2018-08-13] MEDS: Multivitamin With Minerals Tab PO SCH (08:20)
[2018-08-13] MEDS: Magnesium Hydroxide Susp 30 ml UD PO SCH (08:21)
[2018-08-13] MEDS: Alum-Mag Hydrox-Simethicone Susp (30 mL) PO PRN (14:30)
[2018-08-13] MEDS: guaiFENesin 100 mg/5 ml Syrup UD PO PRN (14:30)
[2018-08-14] MEDS: Magnesium Hydroxide Susp 30 ml UD PO SCH ×2 (01:29→08:30)
[2018-08-14 05:17] VITALS: RESP 18
[2018-08-14] MEDS: guaiFENesin 100 mg/5 ml Syrup UD PO PRN (06:25)
--- NOTE | 2018-08-14 08:11 | PCM.PYCHPN ---
Psychiatric Progress Note - Psychiatric Progress Note Patient seen today, length of contact: Pt evaluated, case discussed w/ team, chart reviewed Patient Chief Complaint: Inability to care for self Problems Identified/Issues Discussed: Pending insurance authorization for senior care placement. (see SW notes) Patient reports his mood is stable. Patient is unable to care for himself due to chronic neurocognitive impairments. No behavioral disturbances. Medication Change: No Medical Record Reviewed: Yes Consults ordered or reviewed: Medicine consult, Neurology consult, Podiatry consult Mental Status Examination - Cognitive Function Orientation: Person, Place, Situation, Time Memory: Impaired Attention: Poor Concentration: Poor Association: Loose Fund of Knowledge: Poor Decription of patient's judgement and insights: Chronic limitations in insight/judgment due to dementia - Mood Mood: Neutral - Affect Affect: Broad - Speech Speech: Appropriate - Formal Thought Process Formal Thought Process: Loosening of associations Psychotic Thoughts and Behaviors: No AH/VH/paranoia/delusions - Suicidal Ideation Suicidal Ideation: No - Homicidal Ideation Homicidal Ideation: No Goal/Treatment Plan - Goal/Treatment Plan Need for Continued Stay: Severe functional impairment Progress Toward Problem(s) and Goals/Treatment Plan: Major Neurocognitive Disorder; Schizoaffective Disorder -Individual and group therapy -Medicine consult, Neurology consult, Podiatry consult -Continue Zyprexa 20 mg PO HS -Continue Prozac 20 mg PO Daily -Disposition planning- pending senior care placement
[2018-08-14] MEDS: Multivitamin With Minerals Tab PO SCH (08:29)
--- NOTE | 2018-08-14 15:36 | PCM.BM ---
Treatment Plan Problems - Problems identified on initial assessmt Delusions Date Initiated: 02/19/18 Time Initiated: 00:36 Assessment reference: NA Status: Active Medication nonadherence Date Initiated: 02/19/18 Time Initiated: 00:37 Assessment reference: NA Status: Active Agitated/Aggressive behavior Time Initiated: 11:35 Treatment assets and liabiliti Patient Assests: cooperative, negotiates basic needs Patient Liabilities: poor support system, medical problems - Milieu Protocol Maintain good personal hygiene: daily Encourage regular showers, daily Remind patient to perform daily oral care, daily Assist patient to perform ADL's Conduct patient checks and document Observation sheet: Q15 minutes Maintain personal safety: every shift Educate patient to report safety concerns to staff, every shift Monitor environment for contraband/sharps Medication safety: Monitor for expected outcome, potential side effects: every shift, Assess barriers to learning: every shift, Assess readiness for medication education: every shift Milieu Narrative: Major Neurocognitive Disorder; Schizoaffective Disorder -Individual and group therapy -Medicine consult, Neurology consult, Podiatry consult -Continue Zyprexa 20 mg PO HS -Continue Prozac 20 mg PO Daily -Disposition planning- [facility] Family Contact Family involvement: Fammaura/SO not involved Family contact: Telephone contact initiated by staff Family contact name: Zhane - Friend Family contacted how many times per week?: 2 Family contact comment: Fancy Stitcher spoke with pt's support and former homemaker, Zhane [phone], for collateral and provide Zhane with visiting hours. Zhane reported that she is pt's only support and he does not have friends or family. She has known pt for four years and was his homemaker for 2 of them. Zhane reported that last time she visited pt at [facility] pt had packed all his belongings and wanted to leave the facility. - Goals for Treatment Patient goals for treatment: Pt reported he wants to be referred to a [facility] and not return to [facility]. Discharge/Continuing Care - Education Needs Education Needs: Patient Medication, Patient Diagnosis/Disease Process, Patient Coping Skills, Patient Placement options, Patient Community resources, Patient Aftercare Safety Plan - Discharge Discharge Criteria: Tolerates medication w/o severe side effects, Free of paranoid thoughts, Free of agitation, Normal sleep pattern, Ability to care for self, Reduction of target symptoms Discharge to:: [facility] - Treatment Team Participation Patient/Family/SO Statement: Major Neurocognitive Disorder; Schizoaffective Disorder -Individual and group therapy -Medicine consult, Neurology consult, Podiatry consult -Continue Zyprexa 20 mg PO HS -Continue Prozac 20 mg PO Daily -Disposition planning- pending [facility]iary placement Discussed with Family/SO: Yes Was Patient/Family/SO present at Treatment Team Meeting: Yes Treatment Plan Review - Problem Delusions Date Initiated: 02/18/18 Time Initiated: 00:36 Progress toward outcomes: improved Medication nonadherence Date Initiated: 02/18/18 Time Initiated: 00:37 Progress toward outcomes: resolved (Pt is compliant with prescribed medications.) Agitated/Aggressive behavior Date Initiated: 04/15/18 Time Initiated: 11:35 Progress toward outcomes: improved (Pt has ot displayed hortensia ggressive/assaultive bx's on the unit. At times, pt is verbally inappropriate with staff members and of peers and pt does not believe he is in the wrong.) - Discharge / Continuing Care [facility] to:: [facility]: Residential treatment Health Needs: Follow up care/test, Medications/Rx (Pt seen in treatment team on 08/14/18 for review. Pt informed that he would be transferred to [facility] on 08/15. Pt had no complaints or concerns at this time. Pt denied SI/HI and AVT hallucinations. Pt is oriented X4. )
[2018-08-15 06:09] VITALS: BP 122/77; TEMP 97.1
--- NOTE | 2018-08-15 08:14 | PCM.PYCHDC ---
Mental Status Examination - Mental Status Examination Orientation: Person, Place, Situation, Time Memory: Impaired Mood: Neutral Affect: Broad Speech: Appropriate Formal Thought Process: Circumstantial Description of patient's judgement and insight: Chronic limitations in insight/judgment due to dementia Psychotic Thoughts and Behaviors: No AH/VH/paranoia/delusions Suicidal Ideation: No Current Homicidal Ideation?: No Discharge Summary - Discharge Note Reason for Hospitalization: HPI: 68 yo [place] male, resident at [facility], sent from skilled nursing for worsening agitation, yelling, threatening to kill someone, acute paranoia and aggression. While at the skilled nursing, patient reported beliefs that the doctor was trying to poison him and would only take medications when dispensed by certain individuals. He currently states that he does not feel safe returning to the skilled nursing. He reports feeling depressed and anxious. He denies AH/VH/SI/HI to grant writer, but reported AH in the ER. He has poor insight into his aggressive behaviors and denies making any verbal threats to others. PPHx: H/o schizoaffective disorder; h/o multiple psychiatric admissions, including admission to [facility] from [id number]. Current medications: Zyprexa and Prozac PMHx: DM, HTN, HLD, GERD, Urgency of Urination, Left Eye Blindness, Gait Abnormality ALL: [place] [employer]; NKDA SHx: Resident @ [facility]; denies drugs/etoh/cig use; From [facility] Consultations:: List each consultation separately and include: 1. Reason for request. 2. Findings. 3. Follow-up Consultations: Medicine consult, Neurology consult, Podiatry consult Summary of Hospital Course include:: 1. Description of specific treatment plan utilized for patients during their course of treatmen. 2. Summarize the time- course for resolution of acute symptoms and/or regressed behaviors. 3. Describe issues identified and worked on during hospitalization. 4. Describe medication utilized. 5. Describe medical problems identified and treated. 6. Reassessment of suicide risk Summary of Hospital Course: Patient was admitted to the psychiatry unit. Individual and group therapy were provided. Patient was stabilized on Prozac 20 mg PO Daily and Zyprexa 20 mg PO HS. He was found to have neurocognitive impairments which limit his ability to care for himself. He was appointed a public guardian, who agreed that patient is most appropriate for senior care placement due to his inability to cafe for self at this time. Patient reports his mood is stable. He denies acute depression/anxiety/AH/VH/paranoia/delusions. He is psychiatrically stable for discharge with outpatient follow-up. - Diagnosis (1) Schizoaffective disorder Current Visit: Yes Status: Chronic (2) Dementia Current Visit: Yes Status: Chronic - Final Diagnosis (DSM 5) Condition upon Discharge: STABLE DSM 5: Major Neurocognitive Disorder; Schizoaffective Disorder Disposition: TRANSF TO SNF Follow-up Treatment Plan: Major Neurocognitive Disorder; Schizoaffective Disorder -Continue Zyprexa 20 mg PO HS -Continue Prozac 20 mg PO Daily -Discharge to skilled nursing - Smoking Cessation Smoking Cessation Medication prescribed: No Reason for not providing: Not indicated - Antipsychotic Medications Pt discharged on 2 or more routine antipsychotic medications: No
[2018-08-15] MEDS: Multivitamin With Minerals Tab PO SCH (08:28)
[2018-08-15 08:31] VITALS: PULSE 82
== END 2018-08-15 12:00 | DRG 430 ==
LOC: H.ER 16:46 → H.ERHOLD 21:20 → H.STEP 02-19 00:21
PROVIDERS: ADMIT Psychiatry & Neurology Psychiatry; ATTEND Psychiatry & Neurology Psychiatry
PROC: GZHZZZZ Group Psychotherapy (ICD-10-PCS; principal; 2018-02-18)
PROC: GZ58ZZZ Individual Psychotherapy, Cognitive-Behavioral (ICD-10-PCS; 2018-02-18)
PROC: 3E0234Z Introduction of Serum, Toxoid and Vaccine into Muscle, Percutaneous Approach (ICD-10-PCS; 2018-02-19)
PROC: 0HBRXZZ Excision of Toe Nail, External Approach (ICD-10-PCS; 2018-03-12)
PROC: 0HBRXZZ Excision of Toe Nail, External Approach (ICD-10-PCS; 2018-03-12)
PROC: 0HBRXZZ Excision of Toe Nail, External Approach (ICD-10-PCS; 2018-03-12)
PROC: 0HBRXZZ Excision of Toe Nail, External Approach (ICD-10-PCS; 2018-03-12)
PROC: 0HBRXZZ Excision of Toe Nail, External Approach (ICD-10-PCS; 2018-03-12)
PROC: 0HBRXZZ Excision of Toe Nail, External Approach (ICD-10-PCS; 2018-03-12)
PROC: 0HBRXZZ Excision of Toe Nail, External Approach (ICD-10-PCS; 2018-03-12)
PROC: 0HBRXZZ Excision of Toe Nail, External Approach (ICD-10-PCS; 2018-03-12)
PROC: 0HBRXZZ Excision of Toe Nail, External Approach (ICD-10-PCS; 2018-03-12)
PROC: 0HBRXZZ Excision of Toe Nail, External Approach (ICD-10-PCS; 2018-03-12)
DX: F25.9 Schizoaffective disorder, unspecified (principal); F01.50 Vascular dementia, unspecified severity, without behavioral disturbance, psychotic disturbance, mood disturbance, and anxiety; F60.0 Paranoid personality disorder; E11.9 Type 2 diabetes mellitus without complications; L60.8 Other nail disorders; I10 Essential (primary) hypertension; E78.5 Hyperlipidemia, unspecified; N32.81 Overactive bladder; H54.62 Unqualified visual loss, left eye, normal vision right eye; K21.9 Gastro-esophageal reflux disease without esophagitis; R26.2 Difficulty in walking, not elsewhere classified; Z75.1 Person awaiting admission to adequate facility elsewhere; Z23 Encounter for immunization; Z79.899 Other long term (current) drug therapy; Z87.891 Personal history of nicotine dependence; Z79.4 Long term (current) use of insulin; Z79.84 Long term (current) use of oral hypoglycemic drugs